=== PATIENT | female | born 1955 | race Caucasian/White ===

== ENCOUNTER → 2016-05-10 | Outpatient (CLI) | payer MEDICARE, OTHER ==
--- NOTE | 2016-05-10 22:00 | WWHP ---
DATE OF SERVICE: 05/10/2016 CHIEF COMPLAINT: Patient is here for her routine gynecologic exam. HPI: This is a 61-year-old G5, P3-0 to 2-3 with an LMP of 1984. She is status post DONAVON for abnormal bleeding and this was benign. She has been experiencing occasional infrequent sharp pains that feel like a shooting pain down through the vagina. She states it lasts for just a few seconds and this happened about 3 to 4 times during the last year. She states it is not really on either side, but just down the middle. She cannot think of any activities that seem to be associated with this pain. PAST MEDICAL HISTORY: Chronic hypertension, asthma, hypothyroidism, seasonal allergies, gastroesophageal reflux disease, and chronic knee pain. Dr. Jiménez is her primary care physician. MEDICATIONS: 1. Norvasc generic 1 daily. 2. Lisinopril 1 daily. 3. Singulair generic daily. 4. Omeprazole 1 b.i.d. 5. Oxybutynin 1 b.i.d. 6. Ambien q.h.s. 7. Levothyroxine 1 daily. 8. Hydrocodone q.i.d. p.r.n. for knee pain. ALLERGIES TO LATEX. PAST SURGICAL HISTORY: DONAVON 1984, lap band surgery 2005, bilateral breast reduction surgery 1994, appendectomy 2003. Colonoscopy in 2003 and 2006, bilateral knee replacement in the past. section x2. Past [employer] history: Unchanged from the 2014 H&P. SOCIAL HISTORY: She quit smoking in 2011. Denies alcohol and drug use. She has been since 1991 and this was her second marriage. She is considered disabled. FAMILY HISTORY: Sister was recently diagnosed with breast cancer, and another sister diagnosed with rectal cancer, grandson leukemia. Father had an aneurysm. She believes her mother had uterine cancer. Brother had oral cancer and another brother had lung cancer. Two grandmothers both had lung cancer and paternal aunt had colon cancer. REVIEW OF SYSTEMS: She has lost about 16 pounds over the last 2 years. She denies respiratory or cardiac problems. GI: Occasional heartburn. PHYSICAL EXAM: Blood pressure 112/70. Height 5 feet 4 inches. Weight 230 pounds. Temperature 97.8, pulse 87. This a well-developed, heavyset white female who is alert and oriented x3 in no acute distress. HEENT is within normal limits. NECK: Supple without mass or thyromegaly. CHEST AND LUNGS: Clear to auscultation. HEART: Regular rate and rhythm. Breasts are without mass or discharge but are mildly tender. She states they have been tender since her breast reduction surgery. Axillary exam is negative for adenopathy. BACK: Negative for CVA tenderness. ABDOMEN: Obese, soft, nontender, without palpable masses. PELVIC EXAM: External genitalia reveals mild atrophy without lesions. Vagina reveals mild atrophy without lesions. There is no unusual discharge. Bimanual exam reveals minimal amount of vaginal cuff and mid pelvic tenderness. There are no palpable adnexal masses or tenderness. Rectovaginal exam is negative for mass or tenderness and is negative for occult blood. EXTREMITIES: Nontender. IMPRESSION: 1. A 61-year-old menopausal female, status post total abdominal hysterectomy for benign reasons. 2. Intermittent brief infrequent sharp mid pelvic and vaginal pains. 3. Mild vaginal cuff and mid pelvic tenderness, which may or may not be associated with her shooting pains. PLAN: 1. Pap smears have been discontinued. 2. Self-breast examination was discussed. 3. Mammogram will be done today. 4. Patient will be scheduled for pelvic ultrasound. 5. She will return in one year and p.r.n.
--- NOTE | 2016-05-11 11:59 | MM ---
Reason for exam: screening (asymptomatic). Last mammogram was performed 2 years and 1 month ago. History: 1994. Physical Findings: A clinical breast exam by your physician is recommended on an annual basis and results should be correlated with mammographic findings. MG 3D Screening Mammo W/Cad Bilateral CC and MLO view(s) were taken. Prior study comparison: March 31, 2014, bilateral MG screening mammo w CAD. Finding: There are typically benign coarse calcifications in both breasts. There is a chronic nodularity in the right breast. No significant changes in finding since March 31, 2014. ASSESSMENT: Benign, BI-RAD 2 RECOMMENDATION: Routine screening mammogram of both breasts in 1 year.
== END | disposition home or self-care (01) ==
LOC: WWCWWP 10:51
PROVIDERS: ATTEND Obstetrics & Gynecology
DX: Z12.31 Encounter for screening mammogram for malignant neoplasm of breast (principal)
CPT/HCPCS: 77063; G0202

== ENCOUNTER → 2016-05-24 | Outpatient (CLI) | payer MEDICARE, OTHER ==
--- NOTE | 2016-05-24 10:09 | US ---
EXAMINATION TYPE: US pelvic limited DATE OF EXAM: 05/24/2016 9:40 AM COMPARISON: 03/31/2014 CLINICAL HISTORY: R10.2 Pelvic Pain,R68.89 Pelvic Tenderness. Hysterectomy, intermittent shooting pel jed pain TECHNIQUE: TA, offered TV but patient declined Date of LMP: unknown Patient shows post hysterectomy change. Urinary bladder unremarkable. 1. Uterus: surgically absent 2. Endometrium: surgically absent 3. Right Ovary: not seen due to bowel and atrophy 4. Left Ovary: not seen due to bowel and atrophy 5. Bilateral Adnexa: wnl 6. Posterior cul-de-sac: wnl IMPRESSION: Postop change.
== END | disposition home or self-care (01) ==
LOC: RADUSWWP 09:26
PROVIDERS: ATTEND Obstetrics & Gynecology
DX: R10.2 Pelvic and perineal pain (principal); R10.819 Abdominal tenderness, unspecified site; Z90.710 Acquired absence of both cervix and uterus
CPT/HCPCS: 76857

== ENCOUNTER → 2016-10-03 | Outpatient (CLI) | payer MEDICARE, OTHER ==
--- NOTE | 2016-10-03 16:12 | FL ---
SINGLE CONTRAST BARIUM SWALLOW: CLINICAL HISTORY: 61-year-old female with a dysphasia, vomiting with solids. Lap band placed 10 years ago. TECHNIQUE: Single contrast exam performed thin barium. Total fluoroscopy time: 48 seconds. Fluoroscopic images: 16. FINDINGS: The patient swallowed oral contrast without difficulty or delay. Esophageal peristalsis and motility are within normal limits. Laparoscopic banding device is noted to be in place and is appropriately positioned in proximal stomach, just below Gastroesophageal junction. There is mild resistance to t he flow of contrast across the lap band with a narrow stream. The gastric pouch appears slightly dila yong. However, there is no obstruction. The lap band remains in good position. IMPRESSION: The lap band is mildly tight without obstruction or prolapse. The gastric pouch is slightly dilated i n appearance.
--- NOTE | 2016-10-03 16:13 | P.HPBAR ---
Bariatric H&P - History & Physicial H&P Date: 10/03/16 History & Physicial: Visit/CC: Patient initial contact: Initial weight: Initial weight in pounds: Height: Initial BMI: Last weight: Current weight: Current weight in pounds: Current BMI: [place] body weight (based on NIH guidelines): Excess body weight loss: The patient is a 61 year-old F who presents for Bariatric Assessment. Patient presents today for lab band follow. She's had chronic issues of dysphagia. She 's not been seen several years. Patient states that she's had several years of dysphagia. She wishes to convert to a sleeve gastrectomy. Review of Systems Constitutional: Reports as per HPI Past Medical History Past Medical History: Asthma, GERD/Reflux, Hypertension, Pneumonia Additional Past Medical History / Comment(s): HX OF ULCERATIVE COLITIS (NO PROBLEM NOW), ENVIRONMENTAL ALLERGIES., STATES SHE THROWS UP DAILY. RECENTLY " FEELS UNSTEADY" AND STARTED ON MECLIZINE. History of Any Multi-Drug Resistant Organisms: None Reported Past Surgical History: Appendectomy, Bariatric Surgery, Breast Surgery, Hysterectomy, Joint Replacement Additional Past Surgical History / Comment(s): PARTIAL HYSTERECTOMY, BREAST REDUCTION, LEFT TOTAL KNEE REPLACEMENT X2, RT KNEE REPLACEMENT X1, LAP BAND. Past Anesthesia/Blood Transfusion Reactions: Family History of Problems w/ Anesthesia, Postoperative Nausea & Vomiting (PONV) Additional Past Anesthesia/Blood Transfusion Reaction / Comm: SISTER-PONV Past Psychological History: Depression Additional Psychological History / Comment(s): HX OF DEPRESSION-STATES NO MEDS NOW. Smoking Status: Former smoker Past Alcohol Use History: None Reported Past Drug Use History: None Reported - Past Family History Brother(s) Family Medical History: Cancer Additional Family Medical History / Comment(s): BROTHER # 1 LUNG CANCER. BROTHER #2 ORAL CANCER Mother Family Medical History: Cancer Additional Family Medical History / Comment(s): UTERINE CANCER. ALSO GRANDSON - LEUKEMIA Surgical - Exam - General well developed, no distress - Eyes PERRL - ENT normal pinna - Abdomen Abdomen: soft, non tender Bariatric Assessment & Plan Plan: The patient had an esophagram performed. She is found have a dilated proximal gastric pouch. Her LAP-BAND was emptied. She had 1 mL removed from her band. Patient was given an information on sleeve gastric. She'll follow-up one month for recheck. Bariatric Checklist Checklist: Plan: Checklist: EGD: 1. Hiatal hernia: 2. H. Pylori: HgbA1c: Vitamin D: Smoking: Former smoker Primary care physician referral: Psychiatry clearance: Cardiology clearance: Sleep study: Diet journal: VTE risk score: VTE risk level: Rehab needs at discharge:
[2016-10-03 16:22] VITALS: BP 123/74; PULSE 80; RESP 16; TEMP 97.9; BMI 40.3
== END | disposition home or self-care (01) ==
LOC: BARWHC3 14:09
PROVIDERS: ATTEND Surgery
DX: Z09 Encounter for follow-up examination after completed treatment for conditions other than malignant neoplasm (principal); K21.9 Gastro-esophageal reflux disease without esophagitis; J45.909 Unspecified asthma, uncomplicated; R13.10 Dysphagia, unspecified; I10 Essential (primary) hypertension; F32.9 Major depressive disorder, single episode, unspecified; Z98.84 Bariatric surgery status; Z87.891 Personal history of nicotine dependence
CPT/HCPCS: 74220; G0463; 99212

== ENCOUNTER → 2016-10-17 | Outpatient (CLI) | payer MEDICARE, OTHER ==
[2016-10-17 13:50] VITALS: BP 120/76; PULSE 70; TEMP 98.2; BMI 40.7
--- NOTE | 2016-10-17 17:18 | P.HPBAR ---
Bariatric H&P - History & Physicial History & Physicial: Visit/CC: presurgical visit Patient initial contact: Initial weight: Initial weight in pounds: Height: 5 ft 4 in Initial BMI: Last weight: Current weight: 107.683 kg Current weight in pounds: 237.40 Current BMI: 40.7 [place] body weight (based on NIH guidelines): 54.431 kg Excess body weight loss: The patient is a 61 year-old F who presents for Bariatric Assessment. The patient presents today for lap band follow. The patient wishes to convert to sleeve gastrectomy. She's had chronic issues with GERD and dysphagia. Her LAP- BAND surgery was performed in 2006. Past Medical History Past Medical History: Asthma, GERD/Reflux, Hypertension, Pneumonia Additional Past Medical History / Comment(s): HX OF ULCERATIVE COLITIS (NO PROBLEM NOW), ENVIRONMENTAL ALLERGIES., STATES SHE THROWS UP DAILY. RECENTLY " FEELS UNSTEADY" AND STARTED ON MECLIZINE. History of Any Multi-Drug Resistant Organisms: None Reported Past Surgical History: Appendectomy, Bariatric Surgery, Breast Surgery, Hysterectomy, Joint Replacement Additional Past Surgical History / Comment(s): PARTIAL HYSTERECTOMY, BREAST REDUCTION, LEFT TOTAL KNEE REPLACEMENT X2, RT KNEE REPLACEMENT X1, LAP BAND. Past Anesthesia/Blood Transfusion Reactions: Family History of Problems w/ Anesthesia, Postoperative Nausea & Vomiting (PONV) Additional Past Anesthesia/Blood Transfusion Reaction / Comm: SISTER-PONV Past Psychological History: Depression Additional Psychological History / Comment(s): HX OF DEPRESSION-STATES NO MEDS NOW. Smoking Status: Former smoker Past Alcohol Use History: None Reported Past Drug Use History: None Reported - Past Family History Brother(s) Family Medical History: Cancer Additional Family Medical History / Comment(s): BROTHER # 1 LUNG CANCER. BROTHER #2 ORAL CANCER Mother Family Medical History: Cancer Additional Family Medical History / Comment(s): UTERINE CANCER. ALSO GRANDSON - LEUKEMIA Surgical - Exam Vital Signs Temp Pulse BP 98.2 F 70 120/76 10/17/16 13:48 10/17/16 13:48 10/17/16 13:48 - General well developed, no distress - Abdomen Abdomen: soft, non tender Bariatric Assessment & Plan Plan: The patient will attend information seminar regarding gastric sleeve. Patient' s GERD and dysphagia is most likely due to her hiatal hernia. The patient will attempt to obtain insurance authorization for conversion sleeve yesterday. Her LAP-BAND is currently empty. We will not adjust her LAP-BAND due to her issues with GERD and dysphagia. Bariatric Checklist Checklist: Plan: Checklist: EGD: 1. Hiatal hernia: 2. H. Pylori: HgbA1c: Vitamin D: Smoking: Former smoker Primary care physician referral: dr gill Psychiatry clearance: Cardiology clearance: Sleep study: Diet journal: VTE risk score: VTE risk level: Rehab needs at discharge:
== END | disposition home or self-care (01) ==
LOC: BARWHC3 13:07
PROVIDERS: ATTEND Surgery
DX: Z01.818 Encounter for other preprocedural examination (principal); J45.909 Unspecified asthma, uncomplicated; K21.9 Gastro-esophageal reflux disease without esophagitis; I10 Essential (primary) hypertension; F32.9 Major depressive disorder, single episode, unspecified; Z98.84 Bariatric surgery status; Z87.891 Personal history of nicotine dependence
CPT/HCPCS: 99211

== ENCOUNTER 2016-11-04 07:39 | Day surgery (SDC) | payer MEDICARE, OTHER ==
[2016-11-02 15:59] VITALS: BMI 42.5
[~2016-11-04 07:39] MED LIST: LACTATED RINGERS 1,000 ML IV SCH
[2016-11-04] MEDS ORDERED: LACTATED RINGERS 1,000 ML IV ONE (08:08)
[2016-11-04] MEDS ORDERED: LIDOCAINE 1% 20 ML VIAL (10MG/ML) FOR IV START INTRADERMA ONE (08:08)
[2016-11-04 08:25] VITALS: RESP 18; TEMP 98.4
[2016-11-04] MEDS ORDERED: PROPOFOL 10 MG/ML 20 ML VIAL IV ONE (09:38)
--- NOTE | 2016-11-04 09:39 | P.GSHP ---
History of Present Illness H&P Date: 11/04/16 Chief Complaint: GERD, morbid obesity 's is a 61-year-old female who presents today for EGD. Patient's had issues with GERD. She history of morbid obesity. Past Medical History Past Medical History: Asthma, GERD/Reflux, Hypertension, Pneumonia Additional Past Medical History / Comment(s): sever heartburn,current tx bronchitis, HX OF ULCERATIVE COLITIS (NO PROBLEM NOW), ENVIRONMENTAL ALLERGIES. , .Hiatal hernia,dizziness,anemia,steroid injection 10-28-16 History of Any Multi-Drug Resistant Organisms: None Reported Past Surgical History: Appendectomy, Bariatric Surgery, Breast Surgery, Hysterectomy, Joint Replacement Additional Past Surgical History / Comment(s): PARTIAL HYSTERECTOMY, BREAST REDUCTION, LEFT TOTAL KNEE REPLACEMENT X2, RT KNEE REPLACEMENT X1, LAP BAND. Past Anesthesia/Blood Transfusion Reactions: Family History of Problems w/ Anesthesia, Postoperative Nausea & Vomiting (PONV) Additional Past Anesthesia/Blood Transfusion Reaction / Comment(s): SISTER- PONV.Children also have PONV. No problems with prior blood transfusion Smoking Status: Former smoker - Past Family History Sister(s) Family Medical History: Cancer Brother(s) Family Medical History: Cancer Additional Family Medical History / Comment(s): BROTHER # 1 LUNG CANCER. BROTHER #2 ORAL CANCER Mother Family Medical History: Cancer Additional Family Medical History / Comment(s): UTERINE CANCER. ALSO GRANDSON - LEUKEMIA Medications and Allergies Home Medications Medication Instructions Recorded Confirmed Type Albuterol Inhaler [Ventolin 1 - 2 puff INHALATION QID PRN 06/13/14 11/04/16 History Inhaler] Albuterol Nebulized [Ventolin 2.5 mg INHALATION Q6H PRN 06/13/14 11/04/16 History Nebulized] Aspirin EC [Ecotrin] 81 mg PO DAILY 06/13/14 11/04/16 History Beclomethasone Dipropionate [Qvar 1 puff INHALATION BID 06/13/14 11/04/16 History 80 mcg/puff] Budesonide [Pulmicort] 0.5 mg INHALATION BID 06/13/14 11/04/16 History HYDROcodone/APAP 7.5-325MG [[place] 1 each PO Q6HR PRN 06/13/14 11/04/16 History 7.5-325] Levothyroxine Sodium [Synthroid] 75 mcg PO QAM 06/13/14 11/04/16 History Lisinopril [Prinivil] 20 mg PO HS 06/13/14 11/04/16 History Magnesium Gluconate [Magonate] 500 mg PO DAILY 06/13/14 11/04/16 History Meclizine [Antivert] 25 mg PO TID 06/13/14 11/04/16 History Montelukast [Singulair] 10 mg PO DAILY 06/13/14 11/04/16 History Omeprazole [PriLOSEC] 40 mg PO BID 06/13/14 11/04/16 History Oxybutynin Chloride [Ditropan] 5 mg PO BID 06/13/14 11/04/16 History Zolpidem [Ambien] 10 mg PO HS 06/13/14 11/04/16 History amLODIPine BESYLATE [Norvasc] 5 mg PO QAM 06/13/14 11/04/16 History ALPRAZolam [Xanax] 0.5 mg PO TID PRN 11/02/16 11/04/16 History Atorvastatin [Lipitor] 20 mg PO DAILY 11/02/16 11/04/16 History Cefuroxime Axetil [Ceftin] 500 mg PO BID 11/02/16 11/04/16 History Cetirizine HCl [Zyrtec] 10 mg PO DAILY 11/02/16 11/04/16 History Ibuprofen 800 mg PO TID PRN 11/02/16 11/04/16 History Allergies Allergy/AdvReac Type Severity Reaction Status Date / Time latex Allergy Unknown Itching, Verified 11/04/16 08:13 Watery eyes, Swelling Surgical - Exam Vital Signs Temp Pulse Resp BP Pulse Ox 98.4 F 70 18 114/80 94 L 11/04/16 08:23 11/04/16 08:23 11/04/16 08:23 11/04/16 08:23 11/04/16 08:23 - General well developed, no distress - Eyes PERRL - ENT normal pinna - Neck no masses - Respiratory normal expansion - Cardiovascular Rhythm: regular - Abdomen Abdomen: soft, non tender Assessment and Plan Plan: GERD RBC We'll perform EGD.
--- NOTE | 2016-11-04 09:51 | P.OP ---
Date of Procedure: 11/04/16 Preoperative Diagnosis: GERD Morbid obesity Postoperative Diagnosis: Mild antral gastritis Procedure(s) Performed: EGD Implants: Anesthesia: MAC Surgeon: Jerry Lynn Pathology: other (Antrum) Condition: stable Disposition: PACU Indications for Procedure: Operative Findings: Description of Procedure: Patient's placed on the endoscopy table in the lateral position. She received IV sedation. The gastroscope some placed oropharynx passed in the esophagus and stomach. Scope was then placed through the pylorus. The first and second portion of duodenum appeared normal. Scope was then brought back the antrum and this appeared mildly inflamed. The scope was then retroflexed and the remainder of the stomach appeared normal. There is no evidence of a hiatal hernia. The GE junction was at 47 is. The distal esophagus appeared minimally inflamed and a biopsies performed. The proximal esophagus appeared normal. Scope was withdrawn for patient.
[2016-11-04 10:00] VITALS: BP 103/67; PULSE 65
== END 2016-11-04 10:30 | disposition home or self-care (01) ==
LOC: ORWHC2ENDO 07:39
PROVIDERS: ATTEND Surgery
DX: K29.50 Unspecified chronic gastritis without bleeding (principal); E66.01 Morbid (severe) obesity due to excess calories; K21.0 Gastro-esophageal reflux disease with esophagitis; I10 Essential (primary) hypertension; E78.5 Hyperlipidemia, unspecified; J45.909 Unspecified asthma, uncomplicated; G47.33 Obstructive sleep apnea (adult) (pediatric); Z91.19 Patient's noncompliance with other medical treatment and regimen; E07.9 Disorder of thyroid, unspecified; Z87.891 Personal history of nicotine dependence; Z91.040 Latex allergy status; Z79.899 Other long term (current) drug therapy; Z79.51 Long term (current) use of inhaled steroids; Z79.82 Long term (current) use of aspirin; Z80.1 Family history of malignant neoplasm of trachea, bronchus and lung; Z80.8 Family history of malignant neoplasm of other organs or systems; Z80.6 Family history of leukemia; Z80.49 Family history of malignant neoplasm of other genital organs
CPT/HCPCS: 88305; 88342; 43239; J2704

== ENCOUNTER → 2016-12-05 | Outpatient (CLI) | payer MEDICARE, OTHER ==
[2016-12-05 14:15] VITALS: BP 137/92; PULSE 67; TEMP 98.4; BMI 41.3
--- NOTE | 2016-12-05 14:41 | P.HPBAR ---
Bariatric H&P - History & Physicial H&P Date: 12/05/16 History & Physicial: Visit/CC: pre op visit Patient initial contact: Initial weight: Initial weight in pounds: Height: 5 ft 4 in Initial BMI: Last weight: 237 Current weight: 109.225 kg Current weight in pounds: 240.80 Current BMI: 41.3 [place] body weight (based on NIH guidelines): 54.431 kg Excess body weight loss: The patient is a 61 year-old F who presents for Bariatric Assessment. Patient presents today for lab band follow. She is wishing to convert to sleeve yesterday. She is actually gained weight since her last visit. She is unable to have her band tightened. Past Medical History Past Medical History: Asthma, GERD/Reflux, Hypertension, Pneumonia Additional Past Medical History / Comment(s): sever heartburn,current tx bronchitis, HX OF ULCERATIVE COLITIS (NO PROBLEM NOW), ENVIRONMENTAL ALLERGIES. , .Hiatal hernia,dizziness,anemia,steroid injection 10-28-16 History of Any Multi-Drug Resistant Organisms: None Reported Past Surgical History: Appendectomy, Bariatric Surgery, Breast Surgery, Hysterectomy, Joint Replacement Additional Past Surgical History / Comment(s): PARTIAL HYSTERECTOMY, BREAST REDUCTION, LEFT TOTAL KNEE REPLACEMENT X2, RT KNEE REPLACEMENT X1, LAP BAND. Past Anesthesia/Blood Transfusion Reactions: Family History of Problems w/ Anesthesia, Postoperative Nausea & Vomiting (PONV) Additional Past Anesthesia/Blood Transfusion Reaction / Comm: SISTER- PONV.Children also have PONV. No problems with prior blood transfusion Past Psychological History: Anxiety, Depression Additional Psychological History / Comment(s): HX OF DEPRESSION-STATES NO MEDS NOW. Smoking Status: Former smoker Past Alcohol Use History: None Reported Additional Past Alcohol Use History / Comment(s): quit smoking 2003,started smoking at age 13,1 ppd Past Drug Use History: None Reported - Past Family History Sister(s) Family Medical History: Cancer Brother(s) Family Medical History: Cancer Additional Family Medical History / Comment(s): BROTHER # 1 LUNG CANCER. BROTHER #2 ORAL CANCER Mother Family Medical History: Cancer Additional Family Medical History / Comment(s): UTERINE CANCER. ALSO GRANDSON - LEUKEMIA Surgical - Exam Vital Signs Temp Pulse BP 98.4 F 67 137/92 12/05/16 14:12 12/05/16 14:12 12/05/16 14:12 - General well developed, no distress - Eyes PERRL - ENT normal pinna - Neck no masses - Respiratory normal expansion - Cardiovascular Rhythm: regular - Abdomen Abdomen: soft, non tender Bariatric Assessment & Plan Plan: History of LAP-BAND procedure. Patient has issues with chronic dysphagia due to GERD. Patient will attempt to obtain insurance authorization for conversion sleeve gastrectomy due to her chronic dysphagia. Bariatric Checklist Checklist: Plan: Checklist: EGD: 1. Hiatal hernia: 2. H. Pylori: HgbA1c: Vitamin D: Smoking: Former smoker Primary care physician referral: dr gill Psychiatry clearance: Cardiology clearance: Sleep study: Diet journal: VTE risk score: VTE risk level: Rehab needs at discharge:
== END | disposition home or self-care (01) ==
LOC: BARWHC3 13:44
PROVIDERS: ATTEND Surgery
DX: Z48.815 Encounter for surgical aftercare following surgery on the digestive system (principal); K21.9 Gastro-esophageal reflux disease without esophagitis; Z87.891 Personal history of nicotine dependence; Z98.84 Bariatric surgery status
CPT/HCPCS: 99211

== ENCOUNTER → 2016-12-12 | Outpatient (CLI) | payer MEDICARE, OTHER ==
[2016-12-12 12:59] VITALS: BMI 41.3
== END | disposition home or self-care (01) ==
LOC: BARWHC3 08:45
PROVIDERS: ATTEND Surgery
DX: E66.01 Morbid (severe) obesity due to excess calories (principal)
CPT/HCPCS: 97804

== ENCOUNTER → 2017-01-13 | Outpatient (CLI) | payer MEDICARE, OTHER ==
[2017-01-13 10:33] LABS: Anisocytosis Slight; Basophils % (A) 1 %; CH 28.2; CHCM 32.2; Eosinophils # (A) 0.1 k/uL (0-0.7); Eosinophils % (A) 1 %; HCT 45.6 % (34.0-46.0); HDW 2.44; HGB 14.2 gm/dL (11.4-16.0); Luc # (Auto) 0.08; Luc % (Auto) 1; Lymphocytes # (A) 1.7 k/uL (1.0-4.8); Lymphocytes % (A) 22 %; MCH 27.4 pg (25.0-35.0); MCV 88.2 fL (80.0-100.0); Mean Platelet Volume 7.4; Monocytes # (A) 0.5 k/uL (0-1.0); Monocytes % (A) 6 %; Neutrophils # (A) 5.3 k/uL (1.3-7.7); Neutrophils % (A) 69 %; RBC 5.17 m/uL (3.80-5.40); RDW 16.5 % (11.5-15.5); WBC 7.6 k/uL (3.8-10.6); WBC (Perox) 7.22
[2017-01-13 10:44] LABS: ALT 29 U/L (9-52); AST 21 U/L (14-36); Alkaline Phosphatase 90 U/L (38-126); Anion Gap 10 mmol/L; Blood Urea Nitrogen 17 mg/dL (7-17); Calcium 9.2 mg/dL (8.4-10.2); Carbon Dioxide 25 mmol/L (22-30); Chloride 103 mmol/L (98-107); Glucose 89 mg/dL (74-99); Non-African American GFR(MDRD) >60 (>60 ml/min/1.73 sqM); Potassium 4.6 mmol/L (3.5-5.1); Sodium 138 mmol/L (137-145); Total Bilirubin 0.4 mg/dL (0.2-1.3); Total Protein 6.8 g/dL (6.3-8.2)
== END | disposition home or self-care (01) ==
LOC: LABPAT 09:43
PROVIDERS: ATTEND Surgery
DX: Z01.812 Encounter for preprocedural laboratory examination (principal)
CPT/HCPCS: 36415; 80053; 85025

== ENCOUNTER → 2017-01-30 | Outpatient (CLI) | payer MEDICARE, OTHER ==
[2017-01-30 13:34] VITALS: BP 104/86; PULSE 100; TEMP 98.2; BMI 38.3
--- NOTE | 2017-01-30 16:10 | P.HPBAR ---
Bariatric H&P - History & Physicial H&P Date: 01/30/17 History & Physicial: Visit/CC: post op visit Patient initial contact: Initial weight: 107.53 kg Initial weight in pounds: 237.06 Height: 5 ft 4 in Initial BMI: 40.6 Last weight: Current weight: 101.423 kg Current weight in pounds: 223.60 Current BMI: 38.3 [place] body weight (based on NIH guidelines): 54.431 kg Excess body weight loss: 11.5% The patient is a 62 year-old F who presents for Bariatric Assessment. The patient presents today for postop sleeve gastrectomy follow-up. She has some complaints of GERD. She's had no significant dysphagia. Past Medical History Past Medical History: Asthma, GERD/Reflux, Hyperlipidemia, Hypertension, Osteoarthritis (OA), Pneumonia, Sleep Apnea/CPAP/BIPAP, Thyroid Disorder Additional Past Medical History / Comment(s): HX OF ULCERATIVE COLITIS .Hiatal hernia,anemia C PAP - NOT USING AT THIS TIME History of Any Multi-Drug Resistant Organisms: None Reported Past Surgical History: Appendectomy, Bariatric Surgery, Breast Surgery, Hysterectomy, Joint Replacement Additional Past Surgical History / Comment(s): PARTIAL HYSTERECTOMY, BREAST REDUCTION, LEFT TOTAL KNEE REPLACEMENT X2, RT KNEE REPLACEMENT X1, LAP BAND. lap band removal revision to sleeve gastrectomy 01-23-17 Past Anesthesia/Blood Transfusion Reactions: Family History of Problems w/ Anesthesia, Postoperative Nausea & Vomiting (PONV) Additional Past Anesthesia/Blood Transfusion Reaction / Comm: SISTER- PONV.Children also have PONV. No problems with prior blood transfusion Past Psychological History: Anxiety, Depression Additional Psychological History / Comment(s): HX OF DEPRESSION-STATES NO MEDS NOW. Smoking Status: Former smoker Past Alcohol Use History: Rare Additional Past Alcohol Use History / Comment(s): quit smoking 2003,started smoking at age 13,1 ppd Past Drug Use History: None Reported - Past Family History Sister(s) Family Medical History: Cancer Additional Family Medical History / Comment(s): BREAST CANCER ,#2SISTER RECTALCANCER Father Family Medical History: Pulmonary Embolus Brother(s) Family Medical History: Cancer Additional Family Medical History / Comment(s): BROTHER ORAL CANCER Mother Family Medical History: Cancer Additional Family Medical History / Comment(s): UTERINE CANCER. ALSO GRANDSON - LEUKEMIA Surgical - Exam Vital Signs Temp Pulse BP 98.2 F 100 104/86 01/30/17 13:29 01/30/17 13:29 01/30/17 13:29 - General well developed, no distress - Eyes PERRL - Abdomen Abdomen: soft, non tender Bariatric Assessment & Plan Plan: The patient is status post sleeve yesterday. She is doing well. The patient will continue omeprazole 40 mg by mouth daily for her GERD. She'll follow-up in 2 weeks. Bariatric Checklist Checklist: Plan: Checklist: EGD: 1. Hiatal hernia: 2. H. Pylori: HgbA1c: Vitamin D: Smoking: Former smoker Primary care physician referral: Fredy Jiménez Psychiatry clearance: Cardiology clearance: Sleep study: Diet journal: VTE risk score: VTE risk level: Rehab needs at discharge:
== END ==
LOC: BARWHC3 13:00
PROVIDERS: ATTEND Surgery
DX: Z48.815 Encounter for surgical aftercare following surgery on the digestive system (principal); Z98.84 Bariatric surgery status; K21.9 Gastro-esophageal reflux disease without esophagitis; Z79.899 Other long term (current) drug therapy; Z87.891 Personal history of nicotine dependence
CPT/HCPCS: 97803; G0463; 99211

== ENCOUNTER → 2017-02-20 | Outpatient (CLI) | payer MEDICARE, OTHER ==
[2017-02-20 14:04] VITALS: BP 129/91; PULSE 79; RESP 16; TEMP 98.9; BMI 37.7
--- NOTE | 2017-02-20 15:27 | P.HPBAR ---
Bariatric H&P - History & Physicial H&P Date: 02/20/17 History & Physicial: Visit/CC: SLEEVE Patient initial contact: Initial weight: 107.53 kg Initial weight in pounds: 237.06 Height: 5 ft 4 in Initial BMI: 40.6 Last weight: 223 Current weight: 99.592 kg Current weight in pounds: 219.00 Current BMI: 37.7 Luther body weight (based on NIH guidelines): 54.431 kg Excess body weight loss: 15.4% The patient is a 62 year-old F who presents for Bariatric Assessment. The patient has some complaints of nausea. She's had some emesis. She is refusing to take protein drinks. Past Medical History Past Medical History: Asthma, GERD/Reflux, Hyperlipidemia, Hypertension, Osteoarthritis (OA), Pneumonia, Sleep Apnea/CPAP/BIPAP, Thyroid Disorder Additional Past Medical History / Comment(s): HX OF ULCERATIVE COLITIS .Hiatal hernia,anemia C PAP - NOT USING AT THIS TIME History of Any Multi-Drug Resistant Organisms: None Reported Past Surgical History: Appendectomy, Bariatric Surgery, Breast Surgery, Hysterectomy, Joint Replacement Additional Past Surgical History / Comment(s): PARTIAL HYSTERECTOMY, BREAST REDUCTION, LEFT TOTAL KNEE REPLACEMENT X2, RT KNEE REPLACEMENT X1, LAP BAND. lap band removal revision to sleeve gastrectomy 01-23-17 Past Anesthesia/Blood Transfusion Reactions: Family History of Problems w/ Anesthesia, Postoperative Nausea & Vomiting (PONV) Additional Past Anesthesia/Blood Transfusion Reaction / Comm: SISTER- PONV.Children also have PONV. No problems with prior blood transfusion Past Psychological History: Anxiety, Depression Additional Psychological History / Comment(s): HX OF DEPRESSION-STATES NO MEDS NOW. Smoking Status: Former smoker Past Alcohol Use History: Rare Additional Past Alcohol Use History / Comment(s): quit smoking 2003,started smoking at age 13,1 ppd Past Drug Use History: None Reported - Past Family History Sister(s) Family Medical History: Cancer Additional Family Medical History / Comment(s): BREAST CANCER ,#2SISTER RECTALCANCER Father Family Medical History: Pulmonary Embolus Brother(s) Family Medical History: Cancer Additional Family Medical History / Comment(s): BROTHER ORAL CANCER Mother Family Medical History: Cancer Additional Family Medical History / Comment(s): UTERINE CANCER. ALSO GRANDSON - LEUKEMIA Surgical - Exam Vital Signs Temp Pulse Resp BP 98.9 F 79 16 129/91 02/20/17 14:01 02/20/17 14:01 02/20/17 14:01 02/20/17 14:01 - General well developed, no distress - Eyes PERRL - Respiratory normal expansion - Abdomen Abdomen: soft, non tender Bariatric Assessment & Plan Plan: The patient status post sleeve yesterday. She's had good weight loss. She spent time with dietitian regarding food choices. She'll follow-up in 2 weeks. Her GERD will be observed. Bariatric Checklist Checklist: Plan: Checklist: EGD: 1. Hiatal hernia: 2. H. Pylori: HgbA1c: Vitamin D: Smoking: Former smoker Primary care physician referral: Fredy Jiménez Psychiatry clearance: Cardiology clearance: Sleep study: Diet journal: VTE risk score: VTE risk level: Rehab needs at discharge:
== END | disposition home or self-care (01) ==
LOC: BARWHC3 13:19
PROVIDERS: ATTEND Surgery
DX: Z48.815 Encounter for surgical aftercare following surgery on the digestive system (principal); E66.01 Morbid (severe) obesity due to excess calories; Z68.37 Body mass index [BMI] 37.0-37.9, adult; Z87.891 Personal history of nicotine dependence; Z98.84 Bariatric surgery status
CPT/HCPCS: 97803; G0463; 99211

== ENCOUNTER → 2018-01-26 | Outpatient (CLI) | payer MEDICARE, OTHER ==
--- NOTE | 2018-01-27 14:27 | MR ---
MR sacroiliac joints HISTORY: Ankylosing spondylitis Multiplanar multisequence and postcontrast images through the sacroiliac joints following [address] IV No comparisons available Sacroiliac joints are intact, there is no significant hypertrophic change, no erosion or ankylosis at evident. No abnormal enhancement following contrast administration. Bone marrow signal is maintained . IMPRESSION: Normal sacroiliac joints.
== END ==
LOC: RADMRIMAIN 07:36
PROVIDERS: ATTEND Internal Medicine Rheumatology
DX: M45.7 Ankylosing spondylitis of lumbosacral region (principal)
CPT/HCPCS: 72197; A9585

== ENCOUNTER → 2018-01-31 | Outpatient (CLI) | payer MEDICARE, OTHER ==
--- NOTE | 2018-01-31 08:55 | CT ---
EXAMINATION TYPE: CT chest w con DATE OF EXAM: 01/31/2018 COMPARISON: CTA chest June 03, 2014 HISTORY: Dyspnea on exertion CT DLP: 463.6 mGycm. Automated Exposure Control for Dose Reduction was Utilized. TECHNIQUE: CT scan of the thorax is performed following with IV Contrast, patient injected with 100 mL of Isovue 300. FINDINGS: LUNGS: The lungs are grossly clear, there is no concerning noncalcified parenchymal mass or nodule id entified. There is persistent calcified 3 mm nodule or granuloma medial right lower lobe axial image 41. Some focal scarring adjacent to tortuous descending thoracic aorta is redemonstrated. There is n o pleural effusion or pneumothorax seen. The tracheobronchial tree is patent. MEDIASTINUM: There are no new greater than 1 cm hilar or mediastinal lymph nodes. No cardiomegaly o r pericardial effusion is seen. Mild coronary artery calcification is present which is noted marker for coronary artery disease. Ascending aorta measures up to 3.7 cm in diameter axial image 26 unchang ed from prior. OTHER: There is intervertebral removal of lap band device. Surgical changes from gastric sleeve proce dure are now present. There is more prominent size hiatal hernia now seen. There is moderate to sever e spurring and disc space narrowing L1-L2 level. There is mild to moderate multilevel anterior and la teral spurring throughout the thoracic spine. Slight dextroconvex scoliosis centered in the midthorac ic spine is redemonstrated. IMPRESSION: Evidence of old granulomatous disease. No suspicious new or acute pulmonary process.
== END | disposition home or self-care (01) ==
LOC: RADCTMAIN 07:54
PROVIDERS: ATTEND Internal Medicine Rheumatology
DX: R06.09 Other forms of dyspnea (principal); M45.7 Ankylosing spondylitis of lumbosacral region
CPT/HCPCS: 71260; Q9967

== ENCOUNTER 2018-07-20 12:54 | Emergency (ER) | payer MEDICARE, OTHER ==
[2018-07-20 12:59] VITALS: TEMP 98.3
[2018-07-20] MEDS ORDERED: SODIUM CHLORIDE 0.9% 500 ML 500 ML IV STA (13:57)
[2018-07-20 14:28] LABS: Basophils % (A) 0 %; Eosinophils # (A) 0.1 k/uL (0-0.7); Eosinophils % (A) 0 %; HCT 43.1 % (34.0-46.0); HGB 13.6 gm/dL (11.4-16.0); Lymphocytes # (A) 0.6 k/uL (1.0-4.8); Lymphocytes % (A) 5 %; MCH 25.6 pg (25.0-35.0); MCHC 31.6 g/dL (31.0-37.0); Mean Platelet Volume 7.7; Monocytes # (A) 0.2 k/uL (0-1.0); Monocytes % (A) 1 %; Neutrophils # (A) 12.1 k/uL (1.3-7.7); Neutrophils % (A) 94 %; Platelet Count 327 k/uL (150-450); RBC 5.33 m/uL (3.80-5.40); RDW 15.1 % (11.5-15.5); WBC 12.9 k/uL (3.8-10.6)
[2018-07-20 14:37] LABS: ALT 34 U/L (9-52); AST 29 U/L (14-36); Albumin 4.4 g/dL (3.5-5.0); Alkaline Phosphatase 110 U/L (38-126); Anion Gap 9 mmol/L; Blood Urea Nitrogen 21 mg/dL (7-17); Calcium 9.7 mg/dL (8.4-10.2); Carbon Dioxide 22 mmol/L (22-30); Chloride 105 mmol/L (98-107); Glucose 212 mg/dL (74-99); Magnesium 1.9 mg/dL (1.6-2.3); Potassium 4.2 mmol/L (3.5-5.1); Sodium 136 mmol/L (137-145); Total Bilirubin 0.6 mg/dL (0.2-1.3)
[2018-07-20 14:40] LABS: INR 0.9 (<1.2); Partial Thromboplastin Time 22.4 sec (22.0-30.0); Prothrombin Time 9.7 sec (9.0-12.0)
--- NOTE | 2018-07-20 14:57 | ED ---
Recheck HPI - General Chief Complaint: Recheck/Abnormal Lab/Rx Stated Complaint: SOB, cough Time Seen by Provider: 07/20/18 13:57 Source: patient, RN notes reviewed Mode of arrival: ambulatory Limitations: no limitations - History of Present Illness Initial Comments: 63-year-old female presents emergency Department from [facility] for concerns of aortic aneurysm. Patient states that she presented for URI symptoms was treated for this given antibiotics still on chest x-ray that showed possibility of aneurysm. Patient states she would not be surprised because she has multiple family members with aortic dissection and aneurysms. Patient states that she's never been screaming for this. She has no pain in her back no abdominal pain no chest pain. - Related Data Home Medications Medication Instructions Recorded Confirmed Aspirin EC [Ecotrin Low Dose] 81 mg PO DAILY 06/13/14 07/20/18 Levothyroxine Sodium [Synthroid] 75 mcg PO QAM 06/13/14 07/20/18 Lisinopril [Prinivil] 20 mg PO HS 06/13/14 07/20/18 Meclizine [Antivert] 25 mg PO TID 06/13/14 07/20/18 Montelukast [Singulair] 10 mg PO HS 06/13/14 07/20/18 Oxybutynin Chloride [Ditropan] 5 mg PO BID 06/13/14 07/20/18 Zolpidem [Ambien] 10 mg PO HS PRN 06/13/14 07/20/18 amLODIPine BESYLATE [Norvasc] 5 mg PO QAM 06/13/14 07/20/18 ALPRAZolam [Xanax] 0.5 mg PO TID PRN 11/02/16 07/20/18 Atorvastatin [Lipitor] 20 mg PO DAILY 11/02/16 07/20/18 Cetirizine HCl [Zyrtec] 10 mg PO DAILY 11/02/16 07/20/18 Albuterol Inhaler [Ventolin Hfa 2 puff INHALATION RT-Q6H PRN 01/11/17 07/20/18 Inhaler] Cefdinir [Omnicef] 300 mg PO BID 07/20/18 07/20/18 Fluticasone Nasal [place] [Flonase 2 spr EA NOSTRIL BID PRN 07/20/18 07/20/18 Nasal [place]] Gabapentin [Neurontin] 400 mg PO TID 07/20/18 07/20/18 Ibuprofen [Motrin] 800 mg PO TID PRN 07/20/18 07/20/18 Omeprazole 20 mg PO DAILY 07/20/18 07/20/18 predniSONE 40 mg PO DAILY 07/20/18 07/20/18 Allergies Allergy/AdvReac Type Severity Reaction Status Date / Time latex Allergy Unknown Itching, Verified 07/20/18 16:12 Watery eyes, Swelling, RASH Review of Systems ROS Statement: Those systems with pertinent positive or pertinent negative responses have been documented in the HPI. ROS Other: All systems not noted in ROS Statement are negative. Past Medical History Past Medical History: Asthma, GERD/Reflux, Hyperlipidemia, Hypertension, Osteoarthritis (OA), Pneumonia, Sleep Apnea/CPAP/BIPAP, Thyroid Disorder Additional Past Medical History / Comment(s): HX OF ULCERATIVE COLITIS .Hiatal hernia,anemia C PAP - NOT USING AT THIS TIME History of Any Multi-Drug Resistant Organisms: None Reported Past Surgical History: Appendectomy, Bariatric Surgery, Breast Surgery, Hysterectomy, Joint Replacement Additional Past Surgical History / Comment(s): PARTIAL HYSTERECTOMY, BREAST REDUCTION, LEFT TOTAL KNEE REPLACEMENT X2, RT KNEE REPLACEMENT X1, LAP BAND. lap band removal revision to sleeve gastrectomy 01-23-17 Past Anesthesia/Blood Transfusion Reactions: Family History of Problems w/ Anest hesia, Postoperative Nausea & Vomiting (PONV) Additional Past Anesthesia/Blood Transfusion Reaction / Comment(s): SISTER- PONV.Children also have PONV. No problems with prior blood transfusion Past Psychological History: Anxiety, Depression Smoking Status: Former smoker Past Alcohol Use History: Rare Past Drug Use History: None Reported - Past Family History Sister(s) Family Medical History: Cancer Additional Family Medical History / Comment(s): BREAST CANCER ,#2SISTER RECTALCANCER Father Family Medical History: Pulmonary Embolus Brother(s) Family Medical History: Cancer Additional Family Medical History / Comment(s): BROTHER ORAL CANCER Mother Family Medical History: Cancer Additional Family Medical History / Comment(s): UTERINE CANCER. ALSO GRANDSON - LEUKEMIA General Exam Limitations: no limitations General appearance: alert, in no apparent distress Head exam: Present: atraumatic, normocephalic, normal inspection Eye exam: Present: normal appearance, PERRL, EOMI. Absent: scleral icterus, conjunctival injection, periorbital swelling ENT exam: Present: normal exam, normal oropharynx, mucous membranes moist, TM's normal bilaterally Neck exam: Present: normal inspection, full ROM. Absent: tenderness, meningismus, lymphadenopathy Respiratory exam: Present: normal lung sounds bilaterally. Absent: respiratory distress, wheezes, rales, rhonchi, stridor Cardiovascular Exam: Present: regular rate, normal rhythm, normal heart sounds. Absent: systolic murmur, diastolic murmur, rubs, gallop, clicks GI/Abdominal exam: Present: soft, normal bowel sounds. Absent: distended, tenderness, guarding, rebound, rigid, pulsatile mass Course Vital Signs 07/20/18 12:57 Temperature 98.3 F Pulse Rate 94 Respiratory 20 Rate Blood Pressure 137/93 O2 Sat by Pulse 97 Oximetry Medical Decision Making - Medical Decision Making 63-year-old female presented for possible aortic aneurysm based on x-ray outpatient. CT was obtained given family history and concerns and x-ray CT does not show any large thoracic or abdominal aortic aneurysm. She does have some small aneurysms noted on the iliac. Patient was updated on his results. She will follow-up with PCP. Return parameters were discussed. - Lab Data Result diagrams: 07/20/18 14:12 07/20/18 14:12 Lab Results 07/20/18 07/20/18 07/20/18 Range/Units 14:12 14:12 14:12 WBC 12.9 H (3.8-10.6) k/uL RBC 5.33 (3.80-5.40) m/uL Hgb 13.6 (11.4-16.0) gm/dL Hct 43.1 (34.0-46.0) % MCV 81.0 (80.0-100.0) fL MCH 25.6 (25.0-35.0) pg MCHC 31.6 (31.0-37.0) g/dL RDW 15.1 (11.5-15.5) % Plt Count 327 (150-450) k/uL Neutrophils % 94 % Lymphocytes % 5 % Monocytes % 1 % Eosinophils % 0 % Basophils % 0 % Neutrophils # 12.1 H (1.3-7.7) k/uL Lymphocytes # 0.6 L (1.0-4.8) k/uL Monocytes # 0.2 (0-1.0) k/uL Eosinophils # 0.1 (0-0.7) k/uL Basophils # 0.0 (0-0.2) k/uL PT 9.7 (9.0-12.0) sec INR 0.9 (<1.2) APTT 22.4 (22.0-30.0) sec Sodium 136 L (137-145) mmol/L Potassium 4.2 (3.5-5.1) mmol/L Chloride 105 (98-107) mmol/L Carbon Dioxide 22 (22-30) mmol/L Anion Gap 9 mmol/L BUN 21 H (7-17) mg/dL Creatinine 0.54 (0.52-1.04) mg/dL Est GFR (CKD-EPI)AfAm >90 (>60 ml/min/1.73 sqM) Est GFR (CKD-EPI)NonAf >90 (>60 ml/min/1.73 sqM) Glucose 212 H (74-99) mg/dL Calcium 9.7 (8.4-10.2) mg/dL Magnesium 1.9 (1.6-2.3) mg/dL Total Bilirubin 0.6 (0.2-1.3) mg/dL AST 29 (14-36) U/L ALT 34 (9-52) U/L Alkaline Phosphatase 110 (38-126) U/L Troponin I (0.000-0.034) ng/mL Total Protein 7.0 (6.3-8.2) g/dL Albumin 4.4 (3.5-5.0) g/dL Urine Color Urine Appearance (Clear) Urine pH (5.0-8.0) Ur Specific [place] (1.001-1.035) Urine Protein (Negative) Urine Glucose (UA) (Negative) Urine Ketones (Negative) Urine Blood (Negative) Urine Nitrite (Negative) Urine Bilirubin (Negative) Urine Urobilinogen (<2.0) mg/dL Ur Leukocyte Esterase (Negative) 07/20/18 07/20/18 Range/Units 14:12 15:49 WBC (3.8-10.6) k/uL RBC (3.80-5.40) m/uL Hgb (11.4-16.0) gm/dL Hct (34.0-46.0) % MCV (80.0-100.0) fL MCH (25.0-35.0) pg MCHC (31.0-37.0) g/dL RDW (11.5-15.5) % Plt Count (150-450) k/uL Neutrophils % % Lymphocytes % % Monocytes % % Eosinophils % % Basophils % % Neutrophils # (1.3-7.7) k/uL Lymphocytes # (1.0-4.8) k/uL Monocytes # (0-1.0) k/uL Eosinophils # (0-0.7) k/uL Basophils # (0-0.2) k/uL PT (9.0-12.0) sec INR (<1.2) APTT (22.0-30.0) sec Sodium (137-145) mmol/L Potassium (3.5-5.1) mmol/L Chloride (98-107) mmol/L Carbon Dioxide (22-30) mmol/L Anion Gap mmol/L BUN (7-17) mg/dL Creatinine (0.52-1.04) mg/dL Est GFR (CKD-EPI)AfAm (>60 ml/min/1.73 sqM) Est GFR (CKD-EPI)NonAf (>60 ml/min/1.73 sqM) Glucose (74-99) mg/dL Calcium (8.4-10.2) mg/dL Magnesium (1.6-2.3) mg/dL Total Bilirubin (0.2-1.3) mg/dL AST (14-36) U/L ALT (9-52) U/L Alkaline Phosphatase (38-126) U/L Troponin I <0.012 (0.000-0.034) ng/mL Total Protein (6.3-8.2) g/dL Albumin (3.5-5.0) g/dL Urine Color Light Yellow Urine Appearance Clear (Clear) Urine pH 5.5 (5.0-8.0) Ur Specific [place] 1.029 (1.001-1.035) Urine Protein Negative (Negative) Urine Glucose (UA) 3+ H (Negative) Urine Ketones Negative (Negative) Urine Blood Negative (Negative) Urine Nitrite Negative (Negative) Urine Bilirubin Negative (Negative) Urine Urobilinogen <2.0 (<2.0) mg/dL Ur Leukocyte Esterase Negative (Negative) - EKG Data EKG Comments: EKG performed at 14:07 normal sinus rhythm with rate of 84 PA 156 QRS 82 QT/QTC 360/415 Disposition Clinical Impression: Bronchitis Disposition: HOME SELF-CARE Condition: Stable Instructions (If sedation given, give patient instructions): Acute Bronchitis (ED) Additional Instructions: Please return to the Emergency Department if symptoms worsen or any other concerns. Is patient prescribed a controlled substance at d/c from ED?: No Referrals: Fredy Jiménez MD [Primary Care Provider] - 1-2 days Time of Disposition: 16:26
--- NOTE | 2018-07-20 15:38 | CT ---
EXAMINATION TYPE: CT angio thor/abd pel aorta DATE OF EXAM: 07/20/2018 COMPARISON: None HISTORY: Abnormal cxr. CT DLP: 1507.5 mGycm CONTRAST: CTA thoracic and abdominal aorta with 3-D reconstruction is performed and without and with IV Contras t, patient injected with 100 mL of Isovue 370. Contrast CTA of the thoracic and abdominal aorta was performed from the lung apex through the base of the pelvis. 3-D reconstruction imaging obtained at a separate workstation. CT Chest: THORACIC AORTA: There is no evidence for aneurysm. No dissection or mediastinal hematoma. Mild ath eromatous changes are seen. LUNGS: The lungs are clear and free of infiltrate or atelectasis. No pulmonary nodule or mass is det ected. No pleural effusion or CT evidence of interstitial lung disease. MEDIASTINUM: The heart is not enlarged. No evidence for mediastinal mass or adenopathy. Postsurgical change of gastric sleeve. Small hiatal hernia. HILAR STRUCTURES: No evidence for mass. No hilar adenopathy is appreciated. OTHER: No significant abnormality. CONTRAST CT ABDOMEN AND PELVIS ABDOMINAL AORTA: No evidence for abdominal aortic aneurysm. No dissection. 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 Ectasia and mural thrombus left common iliac artery measuring up to 1.9 c m. Internal iliacs and the visualized femoral arteries are patent. LIVER/GB- No significant abnormality is seen. PANCREAS- No significant abnormality is seen. SPLEEN- No significant abnormality is seen. ADRENALS- No significant abnormality is seen. KIDNEYS/BLADDER- No significant abnormality is seen. BOWEL- No Significant abnormality GENITAL ORGANS: No gross abnormality seen. LYMPH NODES- No greater than 1cm abdominal or pelvic lymph nodes are appreciated. OSSEOUS STRUCTURES- No significant abnormality is seen. OTHER- No significant abnormality is seen. IMPRESSION- 1. Atheromatous change of the thoracic aorta and abdominal aorta without aneurysm or dissection. Aneu rysm is noted of the right common iliac artery aneurysm borderline aneurysm of the left common iliac artery.
[2018-07-20 16:18] LABS: Appearance,Urine Clear (Clear); Bilirubin,Urine Negative (Negative); Blood,Urine Negative (Negative); Color,Urine Light Yellow; Glucose,Urine (UA) 3+ (Negative); Ketones,Urine Negative (Negative); Leukocyte Esterase,Urine Negative (Negative); Nitrite,Urine Negative (Negative); PH, Urine 5.5 (5.0-8.0); Protein,Urine Negative (Negative); Specific Gravity,Urine 1.029 (1.001-1.035); Urobilinogen,Urine <2.0 mg/dL (<2.0)
[2018-07-20 16:51] VITALS: BP 129/87; PULSE 73; RESP 16
== END 2018-07-20 16:49 | disposition home or self-care (01) ==
LOC: EC 12:54
DX: J45.909 Unspecified asthma, uncomplicated (principal); K21.9 Gastro-esophageal reflux disease without esophagitis; E78.5 Hyperlipidemia, unspecified; I10 Essential (primary) hypertension; M19.90 Unspecified osteoarthritis, unspecified site; E07.9 Disorder of thyroid, unspecified; F32.9 Major depressive disorder, single episode, unspecified; F41.9 Anxiety disorder, unspecified; Z87.891 Personal history of nicotine dependence; Z79.82 Long term (current) use of aspirin; Z79.890 Hormone replacement therapy; Z79.52 Long term (current) use of systemic steroids; Z79.899 Other long term (current) drug therapy; Z91.040 Latex allergy status; Z96.653 Presence of artificial knee joint, bilateral
CPT/HCPCS: 36415; 93005; 80053; 83735; 84484; 85025; 85610; 85730; 81003; 71275; 74174; 99285; Q9967

== ENCOUNTER → 2018-10-30 | Outpatient (CLI) | payer MEDICARE, OTHER ==
[2018-10-30 11:21] VITALS: BP 115/80; PULSE 69; RESP 18; TEMP 98.4; BMI 30.2
--- NOTE | 2018-10-30 12:29 | P.HPOB ---
History of Present Illness H&P Date: 10/30/18 Chief Complaint: The patient is here for her routine gynecologic exam and ma mmogram. This is a 63-year-old with an LMP of 1984. The patient states she has noticed occasional greenish vaginal discharge which she states she has noticed since about 2013. She does not notice it every day. The discharge can appear green and does have a bad odor. She has not been sexually active for more than 2 years. She cannot think of any activity that is associated with the di scharge. She denies pruritus. She is otherwise without gynecologic complaints. She is status post DONAVON for benign reasons. Review of Systems She has lost about 50 pounds following a gastric sleeve procedure. She denies respiratory or cardiac problems. G.I.: she frequently has heartburn. Past Medical History Past Medical History: Asthma, GERD/Reflux, Hyperlipidemia, Hypertension, Osteoarthritis (OA), Pneumonia, Sleep Apnea/CPAP/BIPAP, Thyroid Disorder Additional Past Medical History / Comment(s): Hypothyroidism, seasonal allergies and chronic knee pain. Aortic aneurysm. HX OF ULCERATIVE COLITIS .Hiatal hernia,anemia. PAST S[employer]IOR [employer] HISTORY: She has no history of STDs. She is status post DONAVON for benign bleeding. History of Any Multi-Drug Resistant Organisms: None Reported Past Surgical History: Appendectomy, Bariatric Surgery, Breast Surgery, H ysterectomy, Joint Replacement Additional Past Surgical History / Comment(s): DONAVON, BREAST REDUCTION, LEFT TOTAL KNEE REPLACEMENT X2, RT KNEE REPLACEMENT X1, LAP BAND. lap band removal revision to sleeve gastrectomy 01-23-17. Shoulder surgery. Colonoscopy 2006. Past Anesthesia/Blood Transfusion Reactions: Family History of Problems w/ Anesthesia, Postoperative Nausea & Vomiting (PONV) Additional Past Anesthesia/Blood Transfusion Reaction / Comment(s): SISTER- PONV.Children also have PONV. No problems with prior blood transfusion Past Psychological History: Anxiety, Depression Additional Psychological History / Comment(s): HX OF DEPRESSION-STATES NO MEDS NOW. Smoking Status: Former smoker Past Alcohol Use History: Rare Additional Past Alcohol Use History / Comment(s): quit smoking 2003,started smoking at age 13,1 ppd Past Drug Use History: None Reported Additional History: She has been since 1991 and this is her 2nd marriage. She is considered disabled. - Past Family History Sister(s) Family Medical History: Cancer Additional Family Medical History / Comment(s): BREAST CANCER ,#2SISTER RECTALCANCER Father Family Medical History: Pulmonary Embolus Additional Family Medical History / Comment(s): Aneurysm. Brother(s) Family Medical History: Cancer Additional Family Medical History / Comment(s): One brother had lung cancer. BROTHER ORAL CANCER Mother Family Medical History: Cancer Additional Family Medical History / Comment(s): UTERINE CANCER. ALSO GRANDSON -LEUKEMIA Medications and Allergies Home Medications Medication Instructions Recorded Confirmed Type Levothyroxine Sodium [Synthroid] 75 mcg PO QAM 06/13/14 10/30/18 History Lisinopril [Prinivil] 20 mg PO HS 06/13/14 10/30/18 History Meclizine [Antivert] 25 mg PO TID 06/13/14 10/30/18 History Montelukast [Singulair] 10 mg PO HS 06/13/14 10/30/18 History Zolpidem [Ambien] 10 mg PO HS PRN 06/13/14 10/30/18 History amLODIPine BESYLATE [Norvasc] 5 mg PO QAM 06/13/14 10/30/18 History Atorvastatin [Lipitor] 20 mg PO DAILY 11/02/16 10/30/18 History Cetirizine HCl [Zyrtec] 10 mg PO DAILY 11/02/16 10/30/18 History Albuterol Inhaler [Ventolin Hfa 2 puff INHALATION RT-Q6H PRN 01/11/17 07/20/18 History Inhaler] Fluticasone Nasal [place] [Flonase 2 spr EA NOSTRIL BID PRN 07/20/18 10/30/18 History Nasal [place]] Gabapentin [Neurontin] 400 mg PO TID 07/20/18 10/30/18 History Ibuprofen [Motrin] 800 mg PO TID PRN 07/20/18 10/30/18 History Omeprazole 20 mg PO DAILY 07/20/18 10/30/18 History predniSONE 40 mg PO DAILY 07/20/18 10/30/18 History Sertraline [Zoloft] 50 mg PO HS 10/30/18 10/30/18 History Allergies Allergy/AdvReac Type Severity Reaction Status Date / Time latex Allergy Unknown Itching, Verified 10/30/18 11:22 Watery eyes, Swelling, RASH Exam Vital Signs Temp Pulse Resp BP Pulse Ox 10/30/18 11:16 98.4 F 69 18 115/80 98 Intake and Output 10/29/18 10/30/18 10/30/18 22:59 06:59 14:59 Other: Weight 79.832 kg Height 5'4", weight 176 pounds, BMI 30.2. This is a well-developed well-nourished white female who is alert and oriented times 3 in no acute distress. HEENT: Within normal limits. NECK: Supple without mass or thyromegaly. CHEST AND LUNGS: Clear to auscultation. HEART: Regular rate and rhythm. BREASTS: Are without mass or discharge. AXILLARY EXAM: Negative for adenopathy. BACK: Negative for CVA tenderness. ABDOMEN: Soft, nontender, without palpable masses. There is minimal tenderness at the xyphoid process. She states she probably has not felt the xyphoid process until she has lost weight after her gastric sleeve procedure. PELVIC EXAM: External genitalia appears normal with mild atrophy. Vagina appears normal with mild to moderate atrophy. No discharge was visualized on inspection, but upon using a cotton swab, a dark yellowish discharge was noted on the swab. There was no odor noted. There is no evidence of prolapse. Bi manual examination is negative for mass or tenderness. RECTAL EXAM: Rectovaginal exam is negative for mass or tenderness and is negative for occult blood. There is no evidence of a rectovaginal fistula. EXTREMITIES: Nontender. IMPRESSION: 1. 63-year-old menopausal female status post DONAVON with chronic intermittent vaginal discharge with subjective odor. Minimal yellowish discharge is noted only upon wiping with a cotton swab. No vaginal odor is noted today. 2. Possible that bacterial vaginosis based on her symptoms. PLAN: 1. Pap smear of the vaginal cuff has been obtained because of the chronic vaginal discharge. 2. Self breast awareness was discussed with the patient. 3. Screening mammogram will be done today. 4. GC and Chlamydia testing will be obtained from the Pap smear. 5. Trial of MetroGel vaginal gel. One applicator intravaginally QHS times 5 days. The prescription will be sent to [facility] on [facility]. 6.Osteoporosis prevention was discussed. I have stressed the importance of adequate calcium, vitamin D and regular exercise. Recommended amounts of calcium and vitamin D were also discussed. I have recommended bone density testing since this has not been done. The order slip was given to the patient for this. 7. I have recommended screening colonoscopy said since it has been more than 10 years since her last one. She will discuss this with Dr. Jiménez and see if it can be arranged through his office. 8. She was advised to return in one year for her annual well woman exam. She was also instructed to make an appointment if her vaginal discharge is not improved.
--- NOTE | 2018-11-01 11:44 | MM ---
Reason for exam: screening (asymptomatic). Last mammogram was performed 2 years and 6 months ago. History: Family history of breast cancer in sister. 1994. Physical Findings: A clinical breast exam by your physician is recommended on an annual basis and results should be correlated with mammographic findings. MG 3D Screening Mammo W/Cad Bilateral CC and MLO view(s) were taken. Prior study comparison: May 10, 2016, bilateral MG 3d screening mammo w/cad. March 31, 2014, bilateral MG screening mammo w CAD. Focal asymmetry right middle inner CC view, stable. ASSESSMENT: Benign, BI-RAD 2 RECOMMENDATION: Routine screening mammogram of both breasts in 1 year.
== END | disposition home or self-care (01) ==
LOC: WWCWWP 11:03
PROVIDERS: ATTEND Obstetrics & Gynecology
DX: Z12.31 Encounter for screening mammogram for malignant neoplasm of breast (principal)
CPT/HCPCS: 77063; 77067

== ENCOUNTER → 2018-11-16 | Outpatient (CLI) | payer MEDICARE, OTHER ==
--- NOTE | 2018-11-16 17:43 | BD ---
EXAMINATION TYPE: Axial Bone Density DATE OF EXAM: 11/16/2018 COMPARISON: NONE CLINICAL HISTORY: Height: 63.5 Weight: 176.5 FRAX RISK QUESTIONS: Alcohol (3 or more units per day): no Family History (Parent hip fracture): yes Glucocorticoids (More than 3mos): no (Ex: prednisone, prednisolone, methylprednisolone, dexamethasone, and hydrocortisone). History of Fracture in Adulthood: no Secondary Osteoporosis: 1. Type 1 Diabetes: no 2. Hyperthyroidism: no 3. Menopause before 45: yes 4. Malnutrition: no 5. Chronic liver disease: no Rheumatoid Arthritis: no Current Tobacco Use: no RISK FACTORS HISTORY OF: Family History of Osteoporosis: yes Active: sometimes Diet low in dairy products/other sources of calcium: no Postmenopausal woman: age 37 MEDICATIONS: amlodipine, gabapentin, lisinopril, montelukast, omeprazole, zolpidem Thyroid Medications: levothyroxine How Lon plus years Additional History: EXAM MEASUREMENTS: Bone mineral densitometry was performed using the StepUp System. Bone mineral density as measured about the Lumbar spine is: ----- L1-L4(G/cm2): 1.319 T Score Values are as follows: ----- L2: 0.4 ----- L3: 1.8 ----- L4: 1.9 ----- L1-L4: 1.2 Bone mineral density : baseline Bone mineral density about the R hip (g/cm2): 0.797 Bone mineral density about the L hip (g/cm2): 0.842 T Score values are as follows: -----R Neck: -1.7 -----L Neck: -1.4 -----R Total: -1.1 -----L Total: -0.9 Bone mineral density : baseline IMPRESSION: Osteopenia (T Score between -2.5 and -1). There is slightly increased risk of fracture and the patient may be considered for treatment. Re-Screen 2-5 years. NOTE: T-SCORE=SD OF THE YOUNG ADULT MEAN.
--- NOTE | 2018-11-21 10:06 | P.PN ---
Progress Note - Text Progress Note Date: 11/21/18 OUTPATIENT FOLLOW-UP NOTE TEST(S)/RESULTS: bone density test done on 11/16/2018 showed osteopenia and this was a baseline study. METHOD OF NOTIFICATION: the patient was notified by phone. PATIENT COMMENTS: the patient states she did use the MetroGel Vag and temporarily had an improvement in the vaginal discharge, but after a few days she again developed the chronic vaginal discharge. DIAGNOSIS: osteopenia. History of chronic vaginal discharge, possible rectovaginal fistula DISCUSSION: I have discussed this patient with Dr. Cuevas, the radiologist, and he states to studies that can be done to help to diagnose a rectovaginal fistula would be a barium enema study or a CT scan of the pelvis with rectal contrast. See her recent history and physical for additional details. PLAN: I have stressed the importance of adequate calcium, vitamin D, and regular exercise. A handout on this will be sent to the patient. We will repeat the bone density test in 2 to 3 years. The patient would like to proceed with the barium enema study. She will try to come with a fairly empty rectum and will use a stool softener PRN. The order for the barium enema study will be mailed to the patient.
== END | disposition home or self-care (01) ==
LOC: RADBDWWP 12:15
PROVIDERS: ATTEND Obstetrics & Gynecology
DX: M85.88 Other specified disorders of bone density and structure, other site (principal); Z78.0 Asymptomatic menopausal state
CPT/HCPCS: 77080

== ENCOUNTER → 2019-02-28 | Outpatient (CLI) | payer MEDICARE, OTHER ==
--- NOTE | 2019-02-28 16:08 | NM ---
EXAMINATION TYPE: NM hepatobiliary w EF DATE OF EXAM: 02/28/2019 COMPARISON: NONE HISTORY: Generalized abdominal pain TECHNIQUE: After the intravenous administration of 4.6 mCi Tc 99m Mebrofenin hepatobiliary scintigrap hy is performed. Immediate images post injection. FINDINGS: There is satisfactory initial accumulation of tracer by the liver. The gallbladder is visualized wit hin 90 minutes. The small bowel activity is noted within 38 minutes. At one hour 8 ounces of oral e nsure plus is given to mimic CCK and gallbladder ejection fraction is calculated at 69 %, in the norm al range. Therefore there is no scintigraphic evidence of cystic or common bile duct obstruction to suggest acute cholecystitis or gallbladder dyskinesia. IMPRESSION: The gallbladder is not seen until 90 minutes, which can indicate chronic cholecystitis. G allbladder ejection fraction is within normal limits.
== END | disposition home or self-care (01) ==
LOC: RADNMMAIN 12:53
PROVIDERS: ATTEND Family Medicine
DX: K81.1 Chronic cholecystitis (principal)
CPT/HCPCS: 78226; A9537

== ENCOUNTER 2019-03-14 06:15 | Day surgery (SDC) | payer MEDICARE, OTHER ==
[2019-03-12 15:25] VITALS: BMI 31.6
[~2019-03-14 06:15] MED LIST changes: +DEXAMETHASONE SOD PHOSPHATE 10 MG/ML 1 ML VIAL IV ONE; +HEPARIN SODIUM,PORCINE 5,000 UNIT/ML 1 ML VIAL SQ ONE; +HYDROmorphone 0.5 MG/0.5 ML SYRINGE IVP PRN; -LACTATED RINGERS 1,000 ML IV SCH; +LIDOCAINE 1% 20 ML VIAL (10MG/ML) FOR IV START INTRADERMA PRN; +MIDAZOLAM 2 MG/2 ML VIAL IV PRN; +ONDANSETRON 4 MG/2 ML VIAL IVP ONE; +SCOPOLAMINE 1.5MG/72HR PATCH TRANSDERM ONE
[2019-03-14] MEDS: LACTATED RINGERS 1,000 ML IV SCH ×2 (06:50→09:37)
[2019-03-14] MEDS ORDERED: SUCCINYLCHOLINE CHLORIDE 100 MG/5 ML SYR IV ONE (07:46)
[2019-03-14] MEDS ORDERED: MIDAZOLAM 2 MG/2 ML VIAL ONE (07:46)
[2019-03-14] MEDS ORDERED: NEOSTIGMINE 1 MG/ML 10 ML VIAL ONE (07:46)
[2019-03-14] MEDS ORDERED: fentaNYL (PF) 50 MCG/ML 2 ML AMP ONE (07:46)
[2019-03-14] MEDS ORDERED: ROCURONIUM BROMIDE 10 MG/ML 10 ML VIAL IV ONE (07:46)
[2019-03-14] MEDS ORDERED: PROPOFOL 10 MG/ML 20 ML VIAL IV ONE (07:46)
[2019-03-14] MEDS ORDERED: LIDOCAINE 1% INJ 10MG/ML (20 ML MDV) ONE (07:46)
[2019-03-14] MEDS ORDERED: GLYCOPYRROLATE 0.2 MG/ML 2 ML VIAL ONE (07:46)
[2019-03-14] MEDS ORDERED: BUPIVACAINE (PF) 0.25% 30 ML VIAL SQ ONE ×3 (07:50→08:24)
--- NOTE | 2019-03-14 07:53 | P.GSHP ---
History of Present Illness H&P Date: 03/14/19 Chief Complaint: right upper quadrant pain this a 62-year-old female who presents today for laparoscopic cholecystectomy. Patient has had complaints of right quadrant pain. Her recent HIDA scan shows delayed visualization the gallbladder suggestive chronic cholecystitis. Past Medical History Past Medical History: Asthma, GERD/Reflux, Hyperlipidemia, Hypertension, Osteoarthritis (OA), Pneumonia, Sleep Apnea/CPAP/BIPAP, Thyroid Disorder Additional Past Medical History / Comment(s): seasonal allergies and chronic knee pain. Aortic aneurysm-dr. mota, HX OF ULCERATIVE COLITIS, Hiatal hernia,anemia, History of Any Multi-Drug Resistant Organisms: None Reported Past Surgical History: Appendectomy, Bariatric Surgery, Breast Surgery, Hysterectomy, Joint Replacement Additional Past Surgical History / Comment(s): BREAST REDUCTION, LEFT TOTAL KNEE REPLACEMENT X2, RT KNEE REPLACEMENT X1, LAP BAND. lap band removal revision to sleeve gastrectomy 01-23-17. Shoulder surgery. Colonoscopy 2006. Past Anesthesia/Blood Transfusion Reactions: Family History of Problems w/ Anesthesia, Postoperative Nausea & Vomiting (PONV) Additional Past Anesthesia/Blood Transfusion Reaction / Comment(s): SISTER- PONV.Children also have PONV. No problems with prior blood transfusion Smoking Status: Former smoker - Past Family History Sister(s) Family Medical History: Cancer Additional Family Medical History / Comment(s): BREAST CANCER ,#2SISTER RECTALCANCER Father Family Medical History: Pulmonary Embolus Additional Family Medical History / Comment(s): Aneurysm. Brother(s) Family Medical History: Cancer Additional Family Medical History / Comment(s): One brother had lung cancer. BROTHER ORAL CANCER Mother Family Medical History: Cancer Additional Family Medical History / Comment(s): UTERINE CANCER. ALSO GRANDSON - LEUKEMIA Medications and Allergies Home Medications Medication Instructions Recorded Confirmed Type Levothyroxine Sodium [Synthroid] 75 mcg PO QAM 06/13/14 03/12/19 History Lisinopril [Prinivil] 20 mg PO DAILY 06/13/14 03/14/19 History Meclizine [Antivert] 25 mg PO TID PRN 06/13/14 03/12/19 History Montelukast [Singulair] 10 mg PO HS 06/13/14 03/12/19 History Zolpidem [Ambien] 10 mg PO HS PRN 06/13/14 03/12/19 History amLODIPine BESYLATE [Norvasc] 5 mg PO QAM 06/13/14 03/12/19 History Atorvastatin [Lipitor] 20 mg PO HS 11/02/16 03/12/19 History Albuterol Inhaler [Ventolin Hfa 2 puff INHALATION RT-Q6H PRN 01/11/17 03/12/19 History Inhaler] Fluticasone Nasal [place] [Flonase 2 spr EA NOSTRIL BID PRN 07/20/18 03/14/19 History Nasal [place]] Gabapentin [Neurontin] 400 mg PO TID 07/20/18 03/12/19 History Ibuprofen [Motrin] 800 mg PO TID PRN 07/20/18 03/12/19 History Omeprazole 40 mg PO BID 07/20/18 03/12/19 History Albuterol Nebulized [Ventolin 1.25 mg INHALATION TID 03/12/19 03/12/19 History Nebulized] Sertraline [Zoloft] 100 mg PO HS 03/12/19 03/12/19 History Allergies Allergy/AdvReac Type Severity Reaction Status Date / Time latex Allergy Unknown Itching, Verified 03/14/19 06:35 Watery eyes, Swelling, RASH Surgical - Exam Vital Signs Temp Resp BP Pulse Ox 97.6 F 16 107/63 96 03/14/19 06:42 03/14/19 06:42 03/14/19 06:42 03/14/19 06:42 - General well developed, well nourished, no distress - Eyes PERRL - ENT normal pinna - Neck no masses - Respiratory normal expansion - Cardiovascular Rhythm: regular - Abdomen Abdomen: soft, non tender Assessment and Plan Assessment: right upper quadrant pain Chronic cholecystitis We'll perform laparoscopic cholecystectomy.
[2019-03-14] MEDS ORDERED: LACTATED RINGERS 1,000 ML IV ONE (08:38)
[2019-03-14 08:52] VITALS: TEMP 97.4
--- NOTE | 2019-03-14 08:58 | P.OP ---
Date of Procedure: 03/14/19 Preoperative Diagnosis: cholecystitis Postoperative Diagnosis: cholecystitis Procedure(s) Performed: laparoscopic cholecystectomy Anesthesia: EVAN Surgeon: Jerry Lynn Estimated Blood Loss (ml): 5 Pathology: other (gallbladder) Condition: stable Disposition: PACU Description of Procedure: The patient was placed on the operating table. The patient received a general endotracheal tube anesthesia. The patients abdomen was prepped and draped in the usual sterile fashion. Through an infraumbilical stab incision, the fascia of the anterior abdominal wall was grasped with a pair of Kochers and then the Veress needle was placed in the peritoneal cavity. Position of the Veress needle was confirmed with positive drop test. The abdomen was then insufflated. After adequate insufflation, the 10 mm trocar was placed in the peritoneal cavity. Following this the laparoscope was placed in the peritoneal cavity. The patient was placed in the head-up, right side up position and then a 5 mm trocar was placed in the right lateral and right subcostal position under direct visualization. A 8 mm trocar was placed in the epigastric position. The gallbladder was grasped in the fundus and infundibulum. Traction on the gallbladder was placed in the lateral and the cephalad positions. The triangle of Calot was visualized.. The cystic duct was bluntly dissected until the union of the cystic duct and common bile duct was seen. A critical view of safety was achieved. The cystic duct was then divided and sealed with the Harmonic scissors. A PDS Endoloop was then placed throughout the cystic duct stump. The cystic artery divided and sealed with the Harmonic scissors. The gallbladder was then removed from the liver bed using Harmonic scissors. The gallbladder was then extracted through the epigastric port site. Operative field was checked for any bleeding spots and Harmonic scissors was used to coagulate the liver bed. The abdomen was irrigated. The trocars were removed. The skin was closed using interrupted 3-0 Vicryl suture. Dermabond dressing were applied. The patient tolerated the procedure well.
[2019-03-14] MEDS ORDERED: ONDANSETRON 4 MG/2 ML VIAL IVP ONE (09:08)
[2019-03-14] MEDS ORDERED: HYDROmorphone 0.5 MG/0.5 ML SYRINGE IVP ONE (09:10)
[2019-03-14] MEDS ORDERED: HYDROmorphone 1 MG/ML 1 ML SYRINGE IVP ONE ×2 (09:30→09:31)
[2019-03-14] MEDS ORDERED: FAMOTIDINE 20 MG/2 ML VIAL IVP ONE (09:49)
[2019-03-14 11:38] VITALS: RESP 20
[2019-03-14 11:39] VITALS: BP 93/61; PULSE 60
== END 2019-03-14 11:35 | disposition home or self-care (01) ==
LOC: OR 06:15
PROVIDERS: ATTEND Surgery
DX: K80.10 Calculus of gallbladder with chronic cholecystitis without obstruction (principal); I10 Essential (primary) hypertension; E78.5 Hyperlipidemia, unspecified; J45.909 Unspecified asthma, uncomplicated; K21.9 Gastro-esophageal reflux disease without esophagitis; G47.33 Obstructive sleep apnea (adult) (pediatric); M19.90 Unspecified osteoarthritis, unspecified site; E07.9 Disorder of thyroid, unspecified; D64.9 Anemia, unspecified; I72.3 Aneurysm of iliac artery; R07.9 Chest pain, unspecified; Z79.899 Other long term (current) drug therapy; Z91.040 Latex allergy status; Z87.891 Personal history of nicotine dependence; Z90.710 Acquired absence of both cervix and uterus; Z79.890 Hormone replacement therapy; Z98.84 Bariatric surgery status; Z90.49 Acquired absence of other specified parts of digestive tract; Z96.653 Presence of artificial knee joint, bilateral; Z87.01 Personal history of pneumonia (recurrent); Z80.3 Family history of malignant neoplasm of breast; Z80.0 Family history of malignant neoplasm of digestive organs; Z82.49 Family history of ischemic heart disease and other diseases of the circulatory system; Z80.1 Family history of malignant neoplasm of trachea, bronchus and lung; Z80.8 Family history of malignant neoplasm of other organs or systems; Z80.49 Family history of malignant neoplasm of other genital organs; Z80.6 Family history of leukemia; Z87.19 Personal history of other diseases of the digestive system
CPT/HCPCS: 93005; 88304; 47562; J2250; J1644; J1100; J2710; J0690; J2405; J2001; J3010; J1170 ×2; J0330; J2704

== ENCOUNTER 2019-04-02 09:45 | Day surgery (SDC) | payer MEDICARE, OTHER ==
[2019-03-28 09:12] VITALS: BMI 30.2
[~2019-04-02 09:45] MED LIST changes: -DEXAMETHASONE SOD PHOSPHATE 10 MG/ML 1 ML VIAL IV ONE; -HEPARIN SODIUM,PORCINE 5,000 UNIT/ML 1 ML VIAL SQ ONE; -HYDROmorphone 0.5 MG/0.5 ML SYRINGE IVP PRN; +LACTATED RINGERS 1,000 ML IV SCH; -MIDAZOLAM 2 MG/2 ML VIAL IV PRN; -ONDANSETRON 4 MG/2 ML VIAL IVP ONE; -SCOPOLAMINE 1.5MG/72HR PATCH TRANSDERM ONE
[2019-04-02] MEDS ORDERED: LACTATED RINGERS 1,000 ML IV ONE (10:00)
[2019-04-02 10:05] VITALS: RESP 16; TEMP 97.8
[2019-04-02] MEDS ORDERED: PROPOFOL 10 MG/ML 20 ML VIAL IV ONE (10:09)
--- NOTE | 2019-04-02 10:12 | P.GSHP ---
History of Present Illness H&P Date: 04/02/19 Chief Complaint: Screening colonoscopy This a 64-year-old female who presents today for screening colonoscopy. Patient denies any significant GI complaints. Past Medical History Past Medical History: Asthma, GERD/Reflux, Hyperlipidemia, Hypertension, Osteoarthritis (OA), Pneumonia, Sleep Apnea/CPAP/BIPAP, Thyroid Disorder Additional Past Medical History / Comment(s): Hypothyroidism, seasonal allergies., pain in neck, shoulders and knees., uses cane prn., lisa horses., Aortic aneurysm, HX OF ULCERATIVE COLITIS, Hiatal hernia ,anemia, states constipation & diarrhea., cholecystectomy 03/14/19-states incisions healed. History of Any Multi-Drug Resistant Organisms: None Reported Past Surgical History: Appendectomy, Bariatric Surgery, Breast Surgery, Cholecystectomy, Hysterectomy, Joint Replacement Additional Past Surgical History / Comment(s): BREAST REDUCTION, LEFT TOTAL KNEE REPLACEMENT X2, RT KNEE REPLACEMENT X1, LAP BAND. lap band removal revision to sleeve gastrectomy 01-23-17. Shoulder surgery. 5 " Hugo left knee., Colonoscopy, cholecystectomy 03/14/19. Past Anesthesia/Blood Transfusion Reactions: Family History of Problems w/ Anesthesia, Postoperative Nausea & Vomiting (PONV) Additional Past Anesthesia/Blood Transfusion Reaction / Comment(s): SISTER AND CHILDREN PONV Past Psychological History: Anxiety, Depression Additional Psychological History / Comment(s): . Smoking Status: Former smoker Past Alcohol Use History: None Reported Additional Past Alcohol Use History / Comment(s): quit smoking 2003,started smoking at age 13,1 ppd Past Drug Use History: None Reported - Past Family History Sister(s) Family Medical History: Cancer Additional Family Medical History / Comment(s): BREAST CANCER ,#2SISTER RECTALCANCER Father Family Medical History: Pulmonary Embolus Additional Family Medical History / Comment(s): Aneurysm. Brother(s) Family Medical History: Cancer Additional Family Medical History / Comment(s): One brother had lung cancer. BROTHER ORAL CANCER Mother Family Medical History: Cancer Additional Family Medical History / Comment(s): UTERINE CANCER. ALSO GRANDSON - LEUKEMIA Medications and Allergies Home Medications Medication Instructions Recorded Confirmed Type Levothyroxine Sodium [Synthroid] 75 mcg PO QAM 06/13/14 04/02/19 History Lisinopril [Prinivil] 20 mg PO DAILY 06/13/14 04/02/19 History Meclizine [Antivert] 25 mg PO TID PRN 06/13/14 04/02/19 History Montelukast [Singulair] 10 mg PO HS 06/13/14 04/02/19 History Zolpidem [Ambien] 10 mg PO HS PRN 06/13/14 04/02/19 History amLODIPine BESYLATE [Norvasc] 5 mg PO QAM 06/13/14 04/02/19 History Atorvastatin [Lipitor] 20 mg PO HS 11/02/16 04/02/19 History Albuterol Inhaler [Ventolin Hfa 2 puff INHALATION RT-Q6H PRN 01/11/17 04/02/19 History Inhaler] Fluticasone Nasal [place] [Flonase 2 spr EA NOSTRIL BID PRN 07/20/18 04/02/19 History Nasal [place]] Gabapentin [Neurontin] 400 mg PO TID 07/20/18 04/02/19 History Omeprazole 40 mg PO BID 07/20/18 04/02/19 History Albuterol Nebulized [Ventolin 1.25 mg INHALATION TID 03/12/19 04/02/19 History Nebulized] Sertraline [Zoloft] 100 mg PO HS 03/12/19 04/02/19 History HYDROcodone/APAP 5-325MG [[place] 1 tab PO Q6HR PRN #10 tab 03/14/19 04/02/19 Rx 5-325] Allergies Allergy/AdvReac Type Severity Reaction Status Date / Time latex Allergy Unknown Itching, Verified 04/02/19 10:00 Watery eyes, Swelling, RASH Surgical - Exam Vital Signs Temp Pulse Resp BP Pulse Ox 97.8 F 72 16 120/70 97 04/02/19 10:00 04/02/19 10:00 04/02/19 10:00 04/02/19 10:04/02/19 10:00 - General well developed, well nourished, no distress - Eyes PERRL - ENT normal pinna - Neck no masses - Respiratory normal expansion - Cardiovascular Rhythm: regular - Abdomen Abdomen: soft, non tender Assessment and Plan Assessment: We'll perform screening colonoscopy
--- NOTE | 2019-04-02 10:22 | P.OP ---
Date of Procedure: 04/02/19 Preoperative Diagnosis: Screening colonoscopy Postoperative Diagnosis: Normal colonoscopy Procedure(s) Performed: Colonoscopy Anesthesia: MAC Surgeon: Jerry Lynn Pathology: none sent Condition: stable Disposition: PACU Description of Procedure: PROCEDURE: The patient was placed on the endoscopy table in the lateral position. Digital rectal examination was performed which revealed no abnormalities. . Flexible colonoscope was then placed in the patient's anus and passed throughout the entire colon. The ileocecal valve was visualized. The cecum, ascending, transverse, descending and sigmoid colon were normal. The rectum was normal as well. There were no masses, polyps or diverticula noted in the entire colon. SUMMARY OF FINDINGS: Normal colonoscopy.
[2019-04-02 10:51] VITALS: BP 122/82; PULSE 68
== END 2019-04-02 11:53 | disposition home or self-care (01) ==
LOC: ORWHC2ENDO 09:45
PROVIDERS: ATTEND Surgery
DX: Z12.11 Encounter for screening for malignant neoplasm of colon (principal); J45.909 Unspecified asthma, uncomplicated; K21.9 Gastro-esophageal reflux disease without esophagitis; E78.5 Hyperlipidemia, unspecified; I10 Essential (primary) hypertension; M19.90 Unspecified osteoarthritis, unspecified site; Z87.01 Personal history of pneumonia (recurrent); G47.30 Sleep apnea, unspecified; Z99.89 Dependence on other enabling machines and devices; E03.9 Hypothyroidism, unspecified; J30.2 Other seasonal allergic rhinitis; I71.9 Aortic aneurysm of unspecified site, without rupture; K51.90 Ulcerative colitis, unspecified, without complications; K44.9 Diaphragmatic hernia without obstruction or gangrene; D64.9 Anemia, unspecified; Z90.49 Acquired absence of other specified parts of digestive tract; Z90.710 Acquired absence of both cervix and uterus; Z96.653 Presence of artificial knee joint, bilateral; Z98.84 Bariatric surgery status; F41.9 Anxiety disorder, unspecified; F32.9 Major depressive disorder, single episode, unspecified; Z87.891 Personal history of nicotine dependence; Z80.3 Family history of malignant neoplasm of breast; Z80.0 Family history of malignant neoplasm of digestive organs; Z80.1 Family history of malignant neoplasm of trachea, bronchus and lung; Z80.8 Family history of malignant neoplasm of other organs or systems; Z83.6 Family history of other diseases of the respiratory system; Z80.49 Family history of malignant neoplasm of other genital organs; Z80.6 Family history of leukemia; Z79.890 Hormone replacement therapy; Z79.899 Other long term (current) drug therapy; Z79.891 Long term (current) use of opiate analgesic; Z91.040 Latex allergy status
CPT/HCPCS: J2704; G0121

== ENCOUNTER 2019-10-11 09:48 | Observation (INO) | payer MEDICARE, OTHER ==
[2019-10-11] MEDS ORDERED: SODIUM CHLORIDE 0.9% 500 ML 500 ML IV STA (10:15)
[2019-10-11 10:33] LABS: Basophils % (A) 1 %; Eosinophils # (A) 0.3 k/uL (0-0.7); Eosinophils % (A) 4 %; HCT 39.1 % (34.0-46.0); HGB 12.1 gm/dL (11.4-16.0); Hypochromasia Slight; Lymphocytes # (A) 1.3 k/uL (1.0-4.8); Lymphocytes % (A) 21 %; MCH 23.5 pg (25.0-35.0); MCHC 30.9 g/dL (31.0-37.0); MCV 76.2 fL (80.0-100.0); Mean Platelet Volume 6.5; Microcytosis Slight; Monocytes # (A) 0.4 k/uL (0-1.0); Monocytes % (A) 6 %; Neutrophils % (A) 66 %; Platelet Count 282 k/uL (150-450); RBC 5.13 m/uL (3.80-5.40); RDW 15.2 % (11.5-15.5)
[2019-10-11 10:39] LABS: INR 0.9 (<1.2); Partial Thromboplastin Time 23.9 sec (22.0-30.0); Prothrombin Time 9.7 sec (9.0-12.0)
[2019-10-11 10:51] LABS: ALT 14 U/L (4-34); AST 20 U/L (14-36); African American GFR (CKD) >90 (>60 ml/min/1.73 sqM); Albumin 3.4 g/dL (3.5-5.0); Alkaline Phosphatase 109 U/L (38-126); Anion Gap 3 mmol/L; Blood Urea Nitrogen 13 mg/dL (7-17); Calcium 8.4 mg/dL (8.4-10.2); Carbon Dioxide 26 mmol/L (22-30); Chloride 106 mmol/L (98-107); Glucose 119 mg/dL (74-99); Magnesium 2.1 mg/dL (1.6-2.3); Non-African American GFR(CKD) >90 (>60 ml/min/1.73 sqM); Sodium 135 mmol/L (137-145); Total Bilirubin 0.3 mg/dL (0.2-1.3); Total Protein 5.7 g/dL (6.3-8.2)
--- NOTE | 2019-10-11 10:54 | XR ---
EXAMINATION TYPE: XR chest 2V DATE OF EXAM: 10/11/2019 COMPARISON: 05/20/2013 INDICATION: Weakness TECHNIQUE: Single frontal view of the chest is obtained. FINDINGS: The heart size is slightly prominent. The pulmonary vasculature is normal. The lungs are clear. IMPRESSION: 1. Mild cardiomegaly, stable
--- NOTE | 2019-10-11 11:18 | ED ---
Weakness HPI - General Chief complaint: Weakness Stated complaint: weakness/dizziness Time Seen by Provider: 10/11/19 10:04 Source: patient Mode of arrival: ambulatory Limitations: no limitations - History of Present Illness Initial comments: Patient is a 64-year-old female, History of asthma, hypertension, thyroid disorder, presenting to the emergency Department with complaints of weakness that started early this morning. Patient states she woke up at approximate 5 AM, went to make a couple coffee but felt too weak so she went back to bed. Patient states she woke up again at [address] and also dizzy when she would sit up. Patient states she feels like she can't even barely lift up her arms. She states she normally takes sleeping pills at night but states she did not take them last night. She states she was really tired and just went to bed without taking any of her nightly medications. She states she does have a mild cough that she started a few days ago. She states a few members of her family has also started with a cough in the past couple days. No fevers. Patient admits to being an occasional smoker, denies drinking, denies any other drug use. She denies taking any other new medications. She denies having pain anywhere. She denies chest pain, shortness of breath, abdominal pain, nausea, vomiting. She states she still feels lightheaded when she opened her eyes. She denies having a headache. She has no further complaints at this time. Upon arrival to the ER, her vital signs are stable. - Related Data Home Medications Medication Instructions Recorded Confirmed Levothyroxine Sodium [Synthroid] 75 mcg PO QAM 06/13/14 10/11/19 Lisinopril [Prinivil] 20 mg PO DAILY 06/13/14 10/11/19 Meclizine [Antivert] 25 mg PO TID PRN 06/13/14 10/11/19 Montelukast [Singulair] 10 mg PO DAILY 06/13/14 10/11/19 Zolpidem [Ambien] 10 mg PO HS PRN 06/13/14 10/11/19 amLODIPine BESYLATE [Norvasc] 5 mg PO QAM 06/13/14 10/11/19 Atorvastatin [Lipitor] 20 mg PO DAILY 11/02/16 10/11/19 Gabapentin [Neurontin] 400 mg PO TID 07/20/18 10/11/19 Omeprazole [PriLOSEC] 40 mg PO DAILY 10/11/19 10/11/19 Sertraline [Zoloft] 100 mg PO DAILY 10/11/19 10/11/19 Allergies Allergy/AdvReac Type Severity Reaction Status Date / Time latex Allergy Unknown Itching, Verified 10/11/19 09:52 Watery eyes, Swelling, RASH Review of Systems ROS Statement: Those systems with pertinent positive or pertinent negative responses have been documented in the HPI. ROS Other: All systems not noted in ROS Statement are negative. Past Medical History Past Medical History: Asthma, GERD/Reflux, Hyperlipidemia, Hypertension, Ost eoarthritis (OA), Pneumonia, Sleep Apnea/CPAP/BIPAP, Thyroid Disorder Additional Past Medical History / Comment(s): Hypothyroidism, seasonal allergies., pain in neck, shoulders and knees., uses cane prn., lias horses., Aortic aneurysm, HX OF ULCERATIVE COLITIS, Hiatal hernia ,anemia, states constipation & diarrhea., cholecystectomy 03/14/19-states incisions healed. History of Any Multi-Drug Resistant Organisms: None Reported Past Surgical History: Appendectomy, Bariatric Surgery, Breast Surgery, Cholecystectomy, Hysterectomy, Joint Replacement Additional Past Surgical History / Comment(s): BREAST REDUCTION, LEFT TOTAL KNEE REPLACEMENT X2, RT KNEE REPLACEMENT X1, LAP BAND. lap band removal revision to sleeve gastrectomy 01-23-17. Shoulder surgery. 5 " Hugo left knee., Colonoscopy, cholecystectomy 03/14/19. Past Anesthesia/Blood Transfusion Reactions: Family History of Problems w/ Anesthesia, Postoperative Nausea & Vomiting (PONV) Additional Past Anesthesia/Blood Transfusion Reaction / Comment(s): SISTER AND CHILDREN PONV Past Psychological History: Anxiety, Depression Smoking Status: Current some day smoker Past Alcohol Use History: None Reported Past Drug Use History: None Reported - Past Family History Sister(s) Family Medical History: Cancer Additional Family Medical History / Comment(s): BREAST CANCER ,#2SISTER RECTALCANCER Father Family Medical History: Pulmonary Embolus Additional Family Medical History / Comment(s): Aneurysm. Brother(s) Family Medical History: Cancer Additional Family Medical History / Comment(s): One brother had lung cancer. BROTHER ORAL CANCER Mother Family Medical History: Cancer Additional Family Medical History / Comment(s): UTERINE CANCER. ALSO GRANDSON - LEUKEMIA General Exam - General Exam Comments Initial Comments: GENERAL: Patient appears fatigued, well-nourished and in no acute distress. HEAD: Atraumatic, normocephalic. EYES: Pupils equal round and reactive to light, extraocular movements intact, sclera anicteric, conjunctiva are normal. ENT: TMs normal, nares patent, oropharynx clear without exudates. Moist mucous membranes. NECK: Normal range of motion, supple without lymphadenopathy or JVD. LUNGS: Generalized scattered wheezes, no rales or rhonchi. HEART: Regular rate and rhythm without murmurs, rubs or gallops. ABDOMEN: Soft, nontender, normoactive bowel sounds. No guarding, no rebound. No masses appreciated. : Deferred EXTREMITIES: Normal range of motion, no pitting or edema. No clubbing or cyanosis. Strength is 5 out of 5 upper and lower extremities bilaterally. Sensation is equal in bilateral both upper and lower extremities. PSYCH: Normal mood, normal affect. SKIN: Warm, Dry, normal turgor, no rashes or lesions noted. Limitations: no limitations Neurological exam: Present: alert, oriented X3, CN II-XII intact Expanded Speech: Present: fluid speech Cranial nerves: EOM's Intact: Normal, Tongue Deviation: Normal, Nystagmus: Normal, Facial Sensation: Normal Cerebellar function: Finger to Nose: Normal, Heel to Meraz: Normal Upper motor neuron: Pronator Drift: Normal Sensory exam: Upper Extremity Light Touch: Normal, Upper Extremity Temperature: Normal, Lower Extremity Light Touch: Normal, Lower Extremity Temperature: Normal Motor strength exam: RUE: 5, LUE: 5, RLE: 5, LLE: 5 Course Vital Signs 10/11/19 10/11/19 10/11/19 09:49 12:20 14:48 Temperature 98.6 F 98.6 F Pulse Rate 80 56 L 77 Respiratory 20 20 20 Rate Blood Pressure 116/83 129/74 140/89 O2 Sat by Pulse 96 97 Oximetry EKG Findings - EKG Comments: EKG Findings:: Normal sinus rhythm, no signs of acute ischemia. Ventricular rate 64, NH interval 138, QTc 412. Similar to previous on 03/14/2019. Medical Decision Making - Medical Decision Making Patient is a 64-year-old female presenting for weakness since this morning. She denies any falls or trauma. She states she is just not able to stand up or get around on her own which is highly unusual for her. Her only complain in addition to the weakness is a cough 2 days. She denies any chest pain or shortness of breath. Her vital signs are stable. Her exam is unremarkable, no neuro deficits. Her lab work reveals a normal white count, normal hemoglobin. Lactic acid is normal at 1.2, troponin is normal. TSH is elevated at 64.6. Urine shows no evidence of infection, urine tox screen is negative. Chest x-ray reveals no acute abnormality. Patient was given some fluids. Upon reexamin ation, patient was able to sit on the side of the bed, but seemed very lethargic. She does hold a conversation and answers questions appropriately. I did attempt to have patient stand on her own but felt like she might fall. I discussed case in detail with Dr. Patel. We did order a head CT which shows no acute process. Patient will be admitted for weakness, patient accepted by Dr. Jiménez. I consulted neurology. Patient is agreeable with this plan of care. - Lab Data Result diagrams: 10/11/19 10:16 10/11/19 10:16 Lab Results 10/11/19 10/11/19 10/11/19 Range/Units 10:16 10:16 10:16 WBC 6.0 (3.8-10.6) k/uL RBC 5.13 (3.80-5.40) m/uL Hgb 12.1 (11.4-16.0) gm/dL Hct 39.1 (34.0-46.0) % MCV 76.2 L (80.0-100.0) fL MCH 23.5 L (25.0-35.0) pg MCHC 30.9 L (31.0-37.0) g/dL RDW 15.2 (11.5-15.5) % Plt Count 282 (150-450) k/uL Neutrophils % 66 % Lymphocytes % 21 % Monocytes % 6 % Eosinophils % 4 % Basophils % 1 % Neutrophils # 4.0 (1.3-7.7) k/uL Lymphocytes # 1.3 (1.0-4.8) k/uL Monocytes # 0.4 (0-1.0) k/uL Eosinophils # 0.3 (0-0.7) k/uL Basophils # 0.0 (0-0.2) k/uL Hypochromasia Slight Microcytosis Slight PT 9.7 (9.0-12.0) sec INR 0.9 (<1.2) APTT 23.9 (22.0-30.0) sec Sodium 135 L (137-145) mmol/L Potassium 4.0 (3.5-5.1) mmol/L Chloride 106 (98-107) mmol/L Carbon Dioxide 26 (22-30) mmol/L Anion Gap 3 mmol/L BUN 13 (7-17) mg/dL Creatinine 0.56 (0.52-1.04) mg/dL Est GFR (CKD-EPI)AfAm >90 (>60 ml/min/1.73 sqM) Est GFR (CKD-EPI)NonAf >90 (>60 ml/min/1.73 sqM) Glucose 119 H (74-99) mg/dL Plasma Lactic Acid Gustavo (0.7-2.0) mmol/L Calcium 8.4 (8.4-10.2) mg/dL Magnesium 2.1 (1.6-2.3) mg/dL Total Bilirubin 0.3 (0.2-1.3) mg/dL AST 20 (14-36) U/L ALT 14 (4-34) U/L Alkaline Phosphatase 109 (38-126) U/L Troponin I (0.000-0.034) ng/mL NT-Pro-B Natriuret Pep pg/mL Total Protein 5.7 L (6.3-8.2) g/dL Albumin 3.4 L (3.5-5.0) g/dL TSH 64.600 H (0.465-4.680) mIU/L Free T4 (0.78-2.19) ng/dL Urine Color Urine Appearance (Clear) Urine pH (5.0-8.0) Ur Specific [place] (1.001-1.035) Urine Protein (Negative) Urine Glucose (UA) (Negative) Urine Ketones (Negative) Urine Blood (Negative) Urine Nitrite (Negative) Urine Bilirubin (Negative) Urine Urobilinogen (<2.0) mg/dL Ur Leukocyte Esterase (Negative) Urine WBC (0-5) /hpf Urine Mucus (None) /hpf Urine Opiates Screen (NotDetected) Ur Oxycodone Screen (NotDetected) Urine Methadone Screen (NotDetected) Ur Propoxyphene Screen (NotDetected) Ur Barbiturates Screen (NotDetected) U Tricyclic Antidepress (NotDetected) Ur Phencyclidine Scrn (NotDetected) Ur Amphetamines Screen (NotDetected) U Methamphetamines Scrn (NotDetected) U Benzodiazepines Scrn (NotDetected) Urine Cocaine Screen (NotDetected) U Marijuana (THC) Screen (NotDetected) 10/11/19 10/11/19 10/11/19 Range/Units 10:16 10:16 10:16 WBC (3.8-10.6) k/uL RBC (3.80-5.40) m/uL Hgb (11.4-16.0) gm/dL Hct (34.0-46.0) % MCV (80.0-100.0) fL MCH (25.0-35.0) pg MCHC (31.0-37.0) g/dL RDW (11.5-15.5) % Plt Count (150-450) k/uL Neutrophils % % Lymphocytes % % Monocytes % % Eosinophils % % Basophils % % Neutrophils # (1.3-7.7) k/uL Lymphocytes # (1.0-4.8) k/uL Monocytes # (0-1.0) k/uL Eosinophils # (0-0.7) k/uL Basophils # (0-0.2) k/uL Hypochromasia Microcytosis PT (9.0-12.0) sec INR (<1.2) APTT (22.0-30.0) sec Sodium (137-145) mmol/L Potassium (3.5-5.1) mmol/L Chloride (98-107) mmol/L Carbon Dioxide (22-30) mmol/L Anion Gap mmol/L BUN (7-17) mg/dL Creatinine (0.52-1.04) mg/dL Est GFR (CKD-EPI)AfAm (>60 ml/min/1.73 sqM) Est GFR (CKD-EPI)NonAf (>60 ml/min/1.73 sqM) Glucose (74-99) mg/dL Plasma Lactic Acid Gustavo 1.2 (0.7-2.0) mmol/L Calcium (8.4-10.2) mg/dL Magnesium (1.6-2.3) mg/dL Total Bilirubin (0.2-1.3) mg/dL AST (14-36) U/L ALT (4-34) U/L Alkaline Phosphatase (38-126) U/L Troponin I <0.012 (0.000-0.034) ng/mL NT-Pro-B Natriuret Pep 161 pg/mL Total Protein (6.3-8.2) g/dL Albumin (3.5-5.0) g/dL TSH (0.465-4.680) mIU/L Free T4 (0.78-2.19) ng/dL Urine Color Urine Appearance (Clear) Urine pH (5.0-8.0) Ur Specific [place] (1.001-1.035) Urine Protein (Negative) Urine Glucose (UA) (Negative) Urine Ketones (Negative) Urine Blood (Negative) Urine Nitrite (Negative) Urine Bilirubin (Negative) Urine Urobilinogen (<2.0) mg/dL Ur Leukocyte Esterase (Negative) Urine WBC (0-5) /hpf Urine Mucus (None) /hpf Urine Opiates Screen (NotDetected) Ur Oxycodone Screen (NotDetected) Urine Methadone Screen (NotDetected) Ur Propoxyphene Screen (NotDetected) Ur Barbiturates Screen (NotDetected) U Tricyclic Antidepress (NotDetected) Ur Phencyclidine Scrn (NotDetected) Ur Amphetamines Screen (NotDetected) U Methamphetamines Scrn (NotDetected) U Benzodiazepines Scrn (NotDetected) Urine Cocaine Screen (NotDetected) U Marijuana (THC) Screen (NotDetected) 10/11/19 10/11/19 10/11/19 Range/Units 10:16 11:16 11:16 WBC (3.8-10.6) k/uL RBC (3.80-5.40) m/uL Hgb (11.4-16.0) gm/dL Hct (34.0-46.0) % MCV (80.0-100.0) fL MCH (25.0-35.0) pg MCHC (31.0-37.0) g/dL RDW (11.5-15.5) % Plt Count (150-450) k/uL Neutrophils % % Lymphocytes % % Monocytes % % Eosinophils % % Basophils % % Neutrophils # (1.3-7.7) k/uL Lymphocytes # (1.0-4.8) k/uL Monocytes # (0-1.0) k/uL Eosinophils # (0-0.7) k/uL Basophils # (0-0.2) k/uL Hypochromasia Microcytosis PT (9.0-12.0) sec INR (<1.2) APTT (22.0-30.0) sec Sodium (137-145) mmol/L Potassium (3.5-5.1) mmol/L Chloride (98-107) mmol/L Carbon Dioxide (22-30) mmol/L Anion Gap mmol/L BUN (7-17) mg/dL Creatinine (0.52-1.04) mg/dL Est GFR (CKD-EPI)AfAm (>60 ml/min/1.73 sqM) Est GFR (CKD-EPI)NonAf (>60 ml/min/1.73 sqM) Glucose (74-99) mg/dL Plasma Lactic Acid Gustavo (0.7-2.0) mmol/L Calcium (8.4-10.2) mg/dL Magnesium (1.6-2.3) mg/dL Total Bilirubin (0.2-1.3) mg/dL AST (14-36) U/L ALT (4-34) U/L Alkaline Phosphatase (38-126) U/L Troponin I (0.000-0.034) ng/mL NT-Pro-B Natriuret Pep pg/mL Total Protein (6.3-8.2) g/dL Albumin (3.5-5.0) g/dL TSH (0.465-4.680) mIU/L Free T4 0.45 L (0.78-2.19) ng/dL Urine Color Light Yellow Urine Appearance Clear (Clear) Urine pH 7.0 (5.0-8.0) Ur Specific [place] 1.011 (1.001-1.035) Urine Protein Negative (Negative) Urine Glucose (UA) Negative (Negative) Urine Ketones Negative (Negative) Urine Blood Negative (Negative) Urine Nitrite Negative (Negative) Urine Bilirubin Negative (Negative) Urine Urobilinogen <2.0 (<2.0) mg/dL Ur Leukocyte Esterase Moderate H (Negative) Urine WBC 2 (0-5) /hpf Urine Mucus Rare H (None) /hpf Urine Opiates Screen Not Detected (NotDetected) Ur Oxycodone Screen Not Detected (NotDetected) Urine Methadone Screen Not Detected (NotDetected) Ur Propoxyphene Screen Not Detected (NotDetected) Ur Barbiturates Screen Not Detected (NotDetected) U Tricyclic Antidepress Not Detected (NotDetected) Ur Phencyclidine Scrn Not Detected (NotDetected) Ur Amphetamines Screen Not Detected (NotDetected) U Methamphetamines Scrn Not Detected (NotDetected) U Benzodiazepines Scrn Not Detected (NotDetected) Urine Cocaine Screen Not Detected (NotDetected) U Marijuana (THC) Screen Not Detected (NotDetected) Disposition Clinical Impression: Weakness Disposition: ADMITTED IP TO THIS [facility] Condition: Stable Decision Date: 10/11/19 Decision Time: 14:23
[2019-10-11 11:25] LABS: Appearance,Urine Clear (Clear); Bilirubin,Urine Negative (Negative); Blood,Urine Negative (Negative); Color,Urine Light Yellow; Glucose,Urine (UA) Negative (Negative); Ketones,Urine Negative (Negative); Leukocyte Esterase,Urine Moderate (Negative); Mucus,Urine Rare /hpf; Nitrite,Urine Negative (Negative); Protein,Urine Negative (Negative); Specific Gravity,Urine 1.011 (1.001-1.035); Urobilinogen,Urine <2.0 mg/dL (<2.0); WBC,Urine 2 /hpf (0-5)
[2019-10-11 11:52] LABS: Amphetamine Screen,Urine Not Detected (NotDetected); Barbiturate Screen,Urine Not Detected (NotDetected); Benzodiazepines Screen,Urine Not Detected (NotDetected); Cocaine Screen,Urine Not Detected (NotDetected); Methadone Screen, Urine Not Detected (NotDetected); Opiate Screen,Urine Not Detected (NotDetected); Oxycodone Screen, Urine Not Detected (NotDetected); Phencyclidine Screen,Urine Not Detected (NotDetected); Tricyclic Antidepressant,Urine Not Detected (NotDetected); Urn Cannabinoid Scrn Not Detected (NotDetected)
--- NOTE | 2019-10-11 13:57 | CT ---
EXAMINATION TYPE: CT brain wo con DATE OF EXAM: 10/11/2019 COMPARISON: None HISTORY: Patient poor historian CT DLP: 1099.[address] of the brain was performed. The ventricles, basal cisterns and sulci overlying the cerebral convexities demonstrate mild enlargem ent. There is no evidence for intracranial hemorrhage or sulcal effacement. There is decreased attenuation about the periventricular white matter and deep white matter of both c erebral hemispheres, compatible with chronic small vessel ischemia. Differential diagnosis does inclu de demyelination. No mass effects are seen.No midline shift. Osseous calvarium is intact. If symptoms persist consider MRI. IMPRESSION: 1. Age related atrophic and chronic small vessel ischemic change without acute intracranial process s een at this time.
[2019-10-11] MEDS ORDERED: ONDANSETRON 4 MG/2 ML VIAL IVP PRN (14:20)
[2019-10-11] MEDS ORDERED: NALOXONE 0.4 MG/ML 1 ML VIAL IV PRN (14:20)
[2019-10-11] MEDS ORDERED: ACETAMINOPHEN TAB 325 MG TAB PO PRN (14:20)
[2019-10-11 15:15] LABS: T4, Free (Free Thyroxine) 0.45 ng/dL (0.78-2.19)
[2019-10-11] MEDS ORDERED: MECLIZINE 25 MG TAB PO PRN (15:48)
[2019-10-11] MEDS: lisinopriL 20 MG TAB PO SCH (16:42)
[2019-10-11] MEDS: amLODIPine 5 MG TAB PO SCH (16:42)
[2019-10-11] MEDS: SERTRALINE 100 MG TAB PO SCH (16:42)
[2019-10-11] MEDS: GABAPENTIN 400 MG CAP PO SCH ×2 (16:42→20:47)
[2019-10-11] MEDS ORDERED: ASPIRIN 81 MG PO STA (18:18)
--- NOTE | 2019-10-11 18:45 | P.CNNES ---
History of Present Illness Consult date: 10/11/19 Requesting physician: Johnie Patel Reason for Consult: weakness History of Present Illness: This is a 64-year-old female with medical history of hypertention, hypothyroidism and asthma who presented to the emergency department on 10/11/2019 with the complaint of weakness that started early this morning. She woke up at 5:00 in the morning to make coffee and she felt light headed upon waking-up then went back to bed. Then she woke up again at 9:00 in the morning and same thing and she also felt dizzy, like room is spining and especially with sitting up, generalized weakness and felt she was leaning toward one side but does not know which side. She feel her whole body is weak. She denies visual change, Difficulty getting words out, no slurring of speech. denies of any numbness or any tingling. Denies of any ringing in the ears or any hearing loss. Denies of any focal weakness. Denies falls. She states that she has been coughing for the last 2 days she feels congested. Denies fevers. Denies any history of TIA or strokes. sensation states that she is supposed to be on baby aspirin according to her physician but she is not on it. She occasionally smokes. In the ED she had a CT of the brain which was reported as age related atrophic and chronic small vessel ischemic changes without acute intracranial process seen at this time. EKG was reported as normal sinus rhythm. Ventricle rate of 64. Left axis deviation. Low voltage QRS. Review of Systems Review of system: The 12 point system was reviewed and apparent positive and negative per HPI. Past Medical History Past Medical History: Asthma, GERD/Reflux, Hyperlipidemia, Hypertension, Osteoarthritis (OA), Pneumonia, Sleep Apnea/CPAP/BIPAP, Thyroid Disorder Additional Past Medical History / Comment(s): Hypothyroidism, seasonal allergies., pain in neck, shoulders and knees., uses cane prn., lisa horses., Aortic aneurysm, HX OF ULCERATIVE COLITIS, Hiatal hernia ,anemia, states constipation & diarrhea., cholecystectomy 03/14/19-states incisions healed. History of Any Multi-Drug Resistant Organisms: None Reported Past Surgical History: Appendectomy, Bariatric Surgery, Breast Surgery, Cholecystectomy, Hysterectomy, Joint Replacement Additional Past Surgical History / Comment(s): BREAST REDUCTION, LEFT TOTAL KNEE REPLACEMENT X2, RT KNEE REPLACEMENT X1, LAP BAND. lap band removal revision to sleeve gastrectomy 01-23-17. Shoulder surgery. 5 " Hugo left knee., Colonoscopy, cholecystectomy 03/14/19. Past Anesthesia/Blood Transfusion Reactions: Family History of Problems w/ Anesthesia, Postoperative Nausea & Vomiting (PONV) Additional Past Anesthesia/Blood Transfusion Reaction / Comment(s): SISTER AND CHILDREN PONV Past Psychological History: Anxiety, Depression Smoking Status: Current some day smoker Past Alcohol Use History: None Reported Past Drug Use History: None Reported - Past Family History Sister(s) Family Medical History: Cancer Additional Family Medical History / Comment(s): BREAST CANCER ,#2SISTER RECTALCANCER Father Family Medical History: Pulmonary Embolus Additional Family Medical History / Comment(s): Aneurysm. Brother(s) Family Medical History: Cancer Additional Family Medical History / Comment(s): One brother had lung cancer. BROTHER ORAL CANCER Mother Family Medical History: Cancer Additional Family Medical History / Comment(s): UTERINE CANCER. ALSO GRANDSON - LEUKEMIA Medications and Allergies Home Medications Medication Instructions Recorded Confirmed Type Levothyroxine Sodium [Synthroid] 75 mcg PO QAM 06/13/14 10/11/19 History Lisinopril [Prinivil] 20 mg PO DAILY 06/13/14 10/11/19 History Meclizine [Antivert] 25 mg PO TID PRN 06/13/14 10/11/19 History Montelukast [Singulair] 10 mg PO DAILY 06/13/14 10/11/19 History Zolpidem [Ambien] 10 mg PO HS PRN 06/13/14 10/11/19 History amLODIPine BESYLATE [Norvasc] 5 mg PO QAM 06/13/14 10/11/19 History Atorvastatin [Lipitor] 20 mg PO DAILY 11/02/16 10/11/19 History Gabapentin [Neurontin] 400 mg PO TID 07/20/18 10/11/19 History Omeprazole [PriLOSEC] 40 mg PO DAILY 10/11/19 10/11/19 History Sertraline [Zoloft] 100 mg PO DAILY 10/11/19 10/11/19 History Allergies Allergy/AdvReac Type Severity Reaction Status Date / Time latex Allergy Unknown Itching, Verified 10/11/19 09:52 Watery eyes, Swelling, RASH Physical Examination - Vital Signs Vital Signs: Vital Signs Temp Pulse Resp BP Pulse Ox 10/11/19 14:48 98.6 F 77 20 140/89 97 10/11/19 12:20 56 L 20 129/74 10/11/19 09:49 98.6 F 80 20 116/83 96 Intake and Output 10/11/19 10/11/19 10/11/19 06:59 14:59 22:59 Other: Weight 83.915 kg 83.915 kg GENERAL: The patient is lying in bed and is not in acute distress. CHEST: The heart rate is regular rate rhythm. No murmurs to auscultation. No carotid bruit bilaterally. LUNG: Clear to auscultation bilaterally no wheezing noted throughout. Not labored breathing. ABDOMEN/GI: Bowel sounds present in all 4 quadrants. No tenderness to palpation throughout. NEUROLOGICAL: Higher mental function: The patient is awake, alert, oriented to self, place and time. Patient is following commands. No aphasia and no neglect. Cranial nerves: The pupils are round, equal and reactive to light and accommodation. Visual walters are full to confrontation throughout. Extraocular movement is intact no nystagmus is noted. Facial sensation is normal to touch throughout. The facial strength is normal throughout. Hearing is normal bilaterally to hand rub. Tongue is midline and moved [id number] without any difficulty. No dysarthria is noted. Shoulder shrug is normal bilaterally. Motor: Gait: She was generalied weak upon getting up and was cough and slightly moved to left but just briefly. The strength is 5 over 5 throughout. Normal tone and bulk. Cerebellum: Normal finger to nose heel to chin bilaterally. Sensation: Sensation is normal to touch throughout. Reflexes (right/left):2+ throughout. Plantars are downgoing bilaterally. NIH stroke scale: 0 Results PT 9.7, INR 0.9, PTT of 23.9 TSH of 64, T4 0.45, free T3 2.7 Urine drug screen was negative - Laboratory Findings CBC and BMP: 10/11/19 10:16 10/11/19 10:16 Abnormal Lab Findings: Abnormal Labs 10/11/19 10/11/19 10/11/19 10:16 10:16 10:16 MCV 76.2 L MCH 23.5 L MCHC 30.9 L Sodium 135 L Glucose 119 H Total Protein 5.7 L Albumin 3.4 L TSH 64.600 H Free T4 0.45 L Free T3 pg/mL 2.7 L Ur Leukocyte Esterase Urine Mucus 10/11/19 11:16 MCV MCH MCHC Sodium Glucose Total Protein Albumin TSH Free T4 Free T3 pg/mL Ur Leukocyte Esterase Moderate H Urine Mucus Rare H Assessment and Plan Assessment: This is a 64-year-old right-handed female with medical history of hypertention, hypothyroidism and asthma who presented to the emergency department on 10/11/2019 with the complaint of weakness that started early this morning. She woke up at 5:00 in the morning to make coffee and she felt light headed upon waking-up then went back to bed. Then she woke up again at 9:00 in the morning and same thing and she also felt dizzy, like room is spining and especially with sitting up, generalized weakness and felt she was leaning toward one side but does not know which side. She has a cough for the past 2 days. Her generalized weakness and dizziness are unlikely stroke Cough and feels congested HTN Hypothyroidism Plan: Ordered MRI Brain w/o and if negative no further stroke work-up and its not a stroke or TIA. -Placed on ASA 324 loading then 81mg daily and continue Lipitor 20mg daily. -Possibly viral infection causing her to have cough and dizziness (labyrinthitis). The plan was discussed with the patient as well as Dr. Jiménez. Thank you for the consult. Chadwick Perez MD Neuro-hospitalist Time with Patient: Greater than 30
[2019-10-12] MEDS ORDERED: LEVOTHYROXINE 75 MCG TAB PO SCH (06:30)
[2019-10-12] MEDS ORDERED: PANTOPRAZOLE 40 MG TABLET PO SCH (07:30)
[2019-10-12] MEDS: GABAPENTIN 400 MG CAP PO SCH (08:34)
[2019-10-12] MEDS: SERTRALINE 100 MG TAB PO SCH (08:34)
[2019-10-12] MEDS: lisinopriL 20 MG TAB PO SCH (08:34)
[2019-10-12] MEDS: amLODIPine 5 MG TAB PO SCH (08:35)
[2019-10-12 08:46] VITALS: BP 139/92; RESP 18; TEMP 96.9
[2019-10-12] MEDS ORDERED: MONTELUKAST 10 MG TAB PO SCH (09:00)
[2019-10-12] MEDS ORDERED: ATORVASTATIN 20 MG TAB PO SCH (09:00)
[2019-10-12] MEDS ORDERED: ASPIRIN 81 MG PO SCH (09:00)
--- NOTE | 2019-10-12 10:05 | MR ---
EXAMINATION TYPE: MR brain wo con DATE OF EXAM: 10/12/2019 9:51 AM. COMPARISON: NONE. HISTORY: Stroke. Technique: Multiplanar, multiecho imaging of the brain was obtained without intravenous contrast. FINDINGS: There is receptor artifact on this study. Structures are unremarkable. There is a normal craniocervical junction. Echoplanar diffusion imaging fails to demonstrate any restricted diffusion. There are normal vascular flow voids. The orbits are unremarkable. There is no evidence of a CP angle mass lesion. There are scattered high signal FLAIR lesions throughout the FLAIR dataset in the deep white matter t racts of the cerebral hemispheres bilaterally and in the subcortical white matter. These are more pro minent on the right than the left these measure approximately 20 in number. The largest is in the rig ht frontal lobe and measures 6.3 mm. There is no mass effect, midline shift or intracranial blood. IMPRESSION: 1. NO ACUTE INTRACRANIAL ABNORMALITY. 2. NONSPECIFIC FLAIR LESION IN THE DEEP WHITE MATTER TRACTS OF BOTH CEREBRAL HEMISPHERES, GREATER ON THE RIGHT THAN THE LEFT. A DIFFERENTIAL DIAGNOSIS WOULD INCLUDE DEMYELINATION, HYPERTENSION, MIGRAINE HEADACHES, SMALL VESSEL DISEASE AND LYME'S DISEASE.
[2019-10-12] MEDS ORDERED: IPRATROPIUM-ALBUTEROL 3 ML NEB INHALATION PRN (10:20)
[2019-10-12 11:20] VITALS: PULSE 87
[2019-10-12] MEDS ORDERED: LEVOTHYROXINE 50 MCG TAB PO ONE (13:45)
--- NOTE | 2019-10-12 15:32 | P.HPIM ---
History of Present Illness This is a 64-year-old female came in with comments of generalized weakness excessive drowsiness and excessive sleeping. Patient is also pending a vertiginous symptoms. Patient is found to have a hypothyroidism patient does have history of hepatitis and uses on for many micrograms of levothyroxine. Patient has elevated TSH and low T4 and T3 contributing to her symptoms. Patient doesn't have any weakness patient was extensive evaluated for her the vertigo by neurology. Patient doesn't have any congestion or ringing in the ea rs. 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 Because of this reason I'm referring her to urology as outpatient for further workup of these lesions starting with the lumbar puncture as an outpatient. Patient's the levothyroxine dose will be increased will make sure patient is strong enough to go home and patient will be discharged today Review of Systems REVIEW OF SYSTEMS: CONSTITUTIONAL: As mentioned in HPI HEENT: No recent visual problems or hearing problems. Denied any sore throat. CARDIOVASCULAR: No chest pain, orthopnea, PND, no palpitations, no syncope. PULMONARY: No shortness of breath, no cough, no hemoptysis. GASTROINTESTINAL: No diarrhea, no nausea, no vomiting, no abdominal pain. NEUROLOGICAL: No headaches, no weakness, no numbness. HEMATOLOGICAL: Denies any bleeding or petechiae. GENITOURINARY: Denies any burning micturition, frequency, or urgency. MUSCULOSKELETAL/RHEUMATOLOGICAL: Denies any joint pain, swelling, or any muscle pain. ENDOCRINE: Denies any polyuria or polydipsia. The rest of the 14-point review of systems is negative. Past Medical History Past Medical History: Asthma, GERD/Reflux, Hyperlipidemia, Hypertension, Osteoarthritis (OA), Pneumonia, Sleep Apnea/CPAP/BIPAP, Thyroid Disorder Additional Past Medical History / Comment(s): Hypothyroidism, seasonal allergies., pain in neck, shoulders and knees., uses cane prn., lisa horses., Aortic aneurysm, HX OF ULCERATIVE COLITIS, Hiatal hernia ,anemia, states constipation & diarrhea., cholecystectomy 03/14/19-states incisions healed. History of Any Multi-Drug Resistant Organisms: None Reported Past Surgical History: Appendectomy, Bariatric Surgery, Breast Surgery, Cholecystectomy, Hysterectomy, Joint Replacement Additional Past Surgical History / Comment(s): BREAST REDUCTION, LEFT TOTAL KNEE REPLACEMENT X2, RT KNEE REPLACEMENT X1, LAP BAND. lap band removal revision to sleeve gastrectomy 01-23-17. Shoulder surgery. 5 " Hugo left knee., Colonoscopy, cholecystectomy 03/14/19. Past Anesthesia/Blood Transfusion Reactions: Family History of Problems w/ A nesthesia, Postoperative Nausea & Vomiting (PONV) Additional Past Anesthesia/Blood Transfusion Reaction / Comment(s): SISTER AND CHILDREN PONV Past Psychological History: Anxiety, Depression Smoking Status: Current some day smoker Past Alcohol Use History: None Reported Past Drug Use History: None Reported - Past Family History Sister(s) Family Medical History: Cancer Additional Family Medical History / Comment(s): BREAST CANCER ,#2SISTER RECTALCANCER Father Family Medical History: Pulmonary Embolus Additional Family Medical History / Comment(s): Aneurysm. Brother(s) Family Medical History: Cancer Additional Family Medical History / Comment(s): One brother had lung cancer. BROTHER ORAL CANCER Mother Family Medical History: Cancer Additional Family Medical History / Comment(s): UTERINE CANCER. ALSO GRANDSON -LEUKEMIA Medications and Allergies Home Medications Medication Instructions Recorded Confirmed Type Lisinopril [Prinivil] 20 mg PO DAILY 06/13/14 10/11/19 History Montelukast [Singulair] 10 mg PO DAILY 06/13/14 10/11/19 History Zolpidem [Ambien] 10 mg PO HS PRN 06/13/14 10/11/19 History amLODIPine BESYLATE [Norvasc] 5 mg PO QAM 06/13/14 10/11/19 History Atorvastatin [Lipitor] 20 mg PO DAILY 11/02/16 10/11/19 History Gabapentin [Neurontin] 400 mg PO TID 07/20/18 10/11/19 History Omeprazole [PriLOSEC] 40 mg PO DAILY 10/11/19 10/11/19 History Sertraline [Zoloft] 100 mg PO DAILY 10/11/19 10/11/19 History Budesonide-Formot 160-4.5 Mcg 2 puff INHALATION BID #1 inhaler 10/12/19 Rx [Symbicort 160-4.5 Mcg Inhaler] Fluticasone/Salmeterol [Advair 1 inhalation PO BID #1 inhaler 10/12/19 Rx 250-50 Diskus] Levothyroxine Sodium [Euthyrox] 112 mcg PO DAILY #30 tablet 10/12/19 Rx Meclizine [Antivert] 25 mg PO TID PRN #30 tab 10/12/19 Rx Allergies Allergy/AdvReac Type Severity Reaction Status Date / Time latex Allergy Unknown Itching, Verified 10/11/19 09:52 Watery eyes, Swelling, RASH Physical Exam Vitals: Vital Signs Temp Pulse Pulse Resp BP Pulse Ox 10/12/19 11:19 87 10/12/19 11:10 83 10/12/19 08:00 96.9 F L 59 L 18 139/92 91 L 10/12/19 03:30 98.0 F 66 19 112/66 93 L 10/12/19 00:00 67 15 10/11/19 23:55 98.6 F 67 15 108/65 10/11/19 20:00 98.2 F 62 18 112/74 93 L 10/11/19 19:50 62 18 Intake and Output 10/12/19 10/12/19 10/12/19 06:59 14:59 22:59 Intake Total 600 Balance 600 Intake: Oral 600 Other: # Voids 1 2 PHYSICAL EXAMINATION: GENERAL: The patient is alert and oriented x3, not in any acute distress. Well developed, well nourished. She appears to be bit tired HEENT: Pupils are round and equally reacting to light. EOMI. No scleral icterus. No conjunctival pallor. Normocephalic, atraumatic. No pharyngeal erythema. No thyromegaly. CARDIOVASCULAR: S1 and S2 present. No murmurs, rubs, or gallops. PULMONARY: Chest is clear to auscultation, no wheezing or crackles. ABDOMEN: Soft, nontender, nondistended, normoactive bowel sounds. No palpable organomegaly. MUSCULOSKELETAL: No joint swelling or deformity. EXTREMITIES: No cyanosis, clubbing, or pedal edema. NEUROLOGICAL: Gross neurological examination did not reveal any focal deficits. SKIN: No rashes. Results CBC & Chem 7: 10/11/19 10:16 10/11/19 10:16 Labs: Abnormal Lab Results - Last 24 Hours (Table) 07/17/20 Range/Units 10:16 Free T3 pg/mL 2.7 L (2.8-5.3) pg/ml Thrombosis Risk Factor Assmnt - Choose All That Apply Any of the Below Risk Factors Present?: No Other Risk Factors: Yes Each Risk Factor Represents 2 Points: Age 61-74 years Other congenital or acquired thrombophilia - If yes, enter type in comment: No Thrombosis Risk Factor Assessment Total Risk Factor Score: 2 Thrombosis Risk Factor Assessment Level: Low Risk Assessment and Plan Plan: -Fatigue generalized tiredness weakness and excessive sleeping: Secondary to hypothyroidism increasing the dose of levothyroxine -Vertigo probably peripheral vertigo benign push vertigo patient was discharged on meclizine patient's symptoms did improve since yesterday -Nonspecific white matter lesions on the MRI these are incidental findings further workup as an outpatient and patient will be referred to neurology. Gastroesophageal reflux disease -Hyperlipidemia -Hypertension -Sleep apnea hypothyroidism For depression -Continue nicotine use with this some bronchitis and mild COPD patient is being discharged on inhalational steroids and albuterol and nicotine cessation counseling was provided For above-mentioned chronic medical problems patient will resume appropriate home medications. Patient will be discharged today with the above-mentioned plan
--- NOTE | 2019-10-12 15:33 | P.DS ---
Providers Date of admission: 10/11/19 14:16 Attending physician: Fredy Jiménez Consults: 10/11/19 14:16 Consult Physician Urgent Consulting Provider: Chadwick Perez Consult Reason/Comments: weakness Do you want consulting provider notified?: Yes Primary care physician: Fredy Jiménez Hospital Course: Please refer to HPI for further details Patient Condition at Discharge: Stable Plan - Discharge Summary Discharge Rx Participant: No New Discharge Prescriptions: New Levothyroxine Sodium [Euthyrox] 112 mcg PO DAILY #30 tablet Fluticasone/Salmeterol [Advair 250-50 Diskus] 1 inhalation PO BID #1 inhaler Budesonide-Formot 160-4.5 Mcg [Symbicort 160-4.5 Mcg Inhaler] 2 puff INHALATION BID #1 inhaler Continue Zolpidem [Ambien] 10 mg PO HS PRN PRN Reason: Insomnia Montelukast [Singulair] 10 mg PO DAILY amLODIPine BESYLATE [Norvasc] 5 mg PO QAM Lisinopril [Prinivil] 20 mg PO DAILY Atorvastatin [Lipitor] 20 mg PO DAILY Gabapentin [Neurontin] 400 mg PO TID Sertraline [Zoloft] 100 mg PO DAILY Omeprazole [PriLOSEC] 40 mg PO DAILY Meclizine [Antivert] 25 mg PO TID PRN #30 tab PRN Reason: Vertigo Discontinued Levothyroxine Sodium [Synthroid] 75 mcg PO QAM Discharge Medication List Lisinopril [Prinivil] 20 mg PO DAILY 06/13/14 [History] Montelukast [Singulair] 10 mg PO DAILY 06/13/14 [History] Zolpidem [Ambien] 10 mg PO HS PRN 06/13/14 [History] amLODIPine BESYLATE [Norvasc] 5 mg PO QAM 06/13/14 [History] Atorvastatin [Lipitor] 20 mg PO DAILY 11/02/16 [History] Gabapentin [Neurontin] 400 mg PO TID 07/20/18 [History] Omeprazole [PriLOSEC] 40 mg PO DAILY 10/11/19 [History] Sertraline [Zoloft] 100 mg PO DAILY 10/11/19 [History] Budesonide-Formot 160-4.5 Mcg [Symbicort 160-4.5 Mcg Inhaler] 2 puff INHALATION BID #1 inhaler 07/18/20 [Rx] Fluticasone/Salmeterol [Advair 250-50 Diskus] 1 inhalation PO BID #1 inhaler 10/12/19 [Rx] Levothyroxine Sodium [Euthyrox] 112 mcg PO DAILY #30 tablet 10/12/19 [Rx] Meclizine [Antivert] 25 mg PO TID PRN #30 tab 10/12/19 [Rx] Follow up Appointment(s)/Referral(s): Tyrel Blas MD [REFERRING] - 1 Week Fredy Jiménez MD [Primary Care Provider] - 3 Days Chadwick Gordillo MD [STAFF PHYSICIAN] - 1 Week Patient Instructions/Handouts: Vertigo (DC), Vertigo (GEN) Discharge Disposition: HOME SELF-CARE
== END 2019-10-12 14:26 | disposition home or self-care (01) ==
LOC: EC 09:48 → 1SOBS 14:16
PROVIDERS: ADMIT Family Medicine; ATTEND Family Medicine
DX: E03.9 Hypothyroidism, unspecified (principal); E78.5 Hyperlipidemia, unspecified; F17.200 Nicotine dependence, unspecified, uncomplicated; F32.9 Major depressive disorder, single episode, unspecified; F41.9 Anxiety disorder, unspecified; G47.30 Sleep apnea, unspecified; H81.399 Other peripheral vertigo, unspecified ear; I10 Essential (primary) hypertension; J44.9 Chronic obstructive pulmonary disease, unspecified; Z71.6 Tobacco abuse counseling; Z03.818 Encounter for observation for suspected exposure to other biological agents ruled out; K21.9 Gastro-esophageal reflux disease without esophagitis; K51.90 Ulcerative colitis, unspecified, without complications; Z79.51 Long term (current) use of inhaled steroids; Z79.890 Hormone replacement therapy; Z79.899 Other long term (current) drug therapy; Z80.1 Family history of malignant neoplasm of trachea, bronchus and lung; Z80.3 Family history of malignant neoplasm of breast; Z80.49 Family history of malignant neoplasm of other genital organs; Z80.8 Family history of malignant neoplasm of other organs or systems; Z90.49 Acquired absence of other specified parts of digestive tract; Z90.710 Acquired absence of both cervix and uterus; Z96.653 Presence of artificial knee joint, bilateral; Z91.040 Latex allergy status; Z98.84 Bariatric surgery status; Z82.49 Family history of ischemic heart disease and other diseases of the circulatory system; G93.89 Other specified disorders of brain
CPT/HCPCS: 96360; 96361; 99285; 36415; 94640; 93005; 84439; 84481; 83880; 80053; 83605; 83735; 84443; 84484; 85025; 85610; 85730; 81001; 80306; 71046; 70450; 70551; G0378 ×2; U0003

== ENCOUNTER 2019-11-14 08:52 | Day surgery (SDC) | payer MEDICARE, OTHER ==
[2019-11-11 15:47] VITALS: BMI 30.2
[~2019-11-14 08:52] MED LIST changes: -LIDOCAINE 1% 20 ML VIAL (10MG/ML) FOR IV START INTRADERMA PRN
[2019-11-14 09:16] VITALS: RESP 18; TEMP 98.2
[2019-11-14] MEDS ORDERED: LIDOCAINE 1% (10MG/ML) FOR IV START INTRADERMA ONE (09:25)
[2019-11-14] MEDS ORDERED: LIDOCAINE 1% INJ 10MG/ML (20 ML MDV) ONE (09:48)
[2019-11-14] MEDS ORDERED: PROPOFOL 10 MG/ML 20 ML VIAL IV ONE (09:48)
[2019-11-14] MEDS ORDERED: GLYCOPYRROLATE 0.2 MG/ML 2 ML VIAL ONE (09:48)
--- NOTE | 2019-11-14 09:52 | P.GSHP ---
History of Present Illness H&P Date: 11/14/19 Chief Complaint: GERD This a 62-year-old female presents today for EGD. She's had issues with GERD. Past Medical History Past Medical History: Asthma, Diabetes Mellitus, GERD/Reflux, Hyperlipidemia, Hypertension, Osteoarthritis (OA), Pneumonia, Sleep Apnea/CPAP/BIPAP, Thyroid Disorder Additional Past Medical History / Comment(s): Borderline Diabetes. Hypothyroidism, seasonal allergies, pain in neck, shoulders and knees. Aortic aneurysm. HX OF ULCERATIVE COLITIS, Hiatal hernia, anemia, constipation & diarrhea, no CPAP use currently. History of Any Multi-Drug Resistant Organisms: None Reported Past Surgical History: Appendectomy, Bariatric Surgery, Breast Surgery, Cholecystectomy, Hysterectomy, Joint Replacement Additional Past Surgical History / Comment(s): BREAST REDUCTION, LEFT TOTAL KNEE REPLACEMENT X2, RIGHT TOTAL KNEE REPLACEMENT X1, LAP BAND, lap band removal, revision to sleeve gastrectomy, shoulder surgery, 5' zamzam in left knee, Colonoscopy, Cataract surgery bilaterally. Past Anesthesia/Blood Transfusion Reactions: Family History of Problems w/ Anesthesia, Motion Sickness, Postoperative Nausea & Vomiting (PONV) Additional Past Anesthesia/Blood Transfusion Reaction / Comment(s): SISTER AND CHILDREN PONV. Past Psychological History: Anxiety, Depression Smoking Status: Former smoker Past Alcohol Use History: None Reported Additional Past Alcohol Use History / Comment(s): Quit smoking in 2003, started smoking at age 13, 1 PPD. Past Drug Use History: None Reported - Past Family History Sister(s) Family Medical History: Cancer Additional Family Medical History / Comment(s): BREAST CANCER ,#2 SISTER RECTAL CANCER. Father Family Medical History: Pulmonary Embolus Additional Family Medical History / Comment(s): Aneurysm. Brother(s) Family Medical History: Cancer Additional Family Medical History / Comment(s): One brother had lung cancer. BROTHER #2 ORAL CANCER. Mother Family Medical History: Cancer Additional Family Medical History / Comment(s): UTERINE CANCER. ALSO GRANDSON - LEUKEMIA X2. Medications and Allergies Home Medications Medication Instructions Recorded Confirmed Type Montelukast [Singulair] 10 mg PO DAILY 06/13/14 11/14/19 History Zolpidem [Ambien] 10 mg PO HS PRN 06/13/14 11/14/19 History amLODIPine BESYLATE [Norvasc] 5 mg PO QAM 06/13/14 11/14/19 History lisinopriL [Prinivil] 20 mg PO QAM 06/13/14 11/14/19 History Atorvastatin [Lipitor] 20 mg PO DAILY 11/02/16 11/14/19 History Gabapentin [Neurontin] 400 mg PO TID 07/20/18 11/14/19 History Omeprazole [PriLOSEC] 40 mg PO DAILY 10/11/19 11/14/19 History Sertraline [Zoloft] 150 mg PO DAILY 10/11/19 11/14/19 History Budesonide-Formot 160-4.5 Mcg 2 puff INHALATION BID #1 inhaler 10/12/19 11/14/19 Rx [Symbicort 160-4.5 Mcg Inhaler] Fluticasone/Salmeterol [Advair 1 inhalation PO BID #1 inhaler 10/12/19 11/14/19 Rx 250-50 Diskus] Levothyroxine Sodium [Euthyrox] 112 mcg PO DAILY #30 tablet 10/12/19 11/14/19 Rx Meclizine [Antivert] 25 mg PO TID PRN #30 tab 10/12/19 11/14/19 Rx Allergies Allergy/AdvReac Type Severity Reaction Status Date / Time latex Allergy Unknown Itching, Verified 11/14/19 09:17 Watery eyes, Swelling, RASH Surgical - Exam Vital Signs Temp Pulse Resp BP Pulse Ox 98.2 F 67 18 127/88 96 11/14/19 09:15 11/14/19 09:15 11/14/19 09:15 11/14/19 09:15 11/14/19 09:15 - General well developed, well nourished, no distress - Eyes PERRL - ENT normal pinna - Neck no masses - Respiratory normal expansion - Cardiovascular Rhythm: regular - Abdomen Abdomen: soft, non tender Assessment and Plan Assessment: GERD. We'll perform EGD.
--- NOTE | 2019-11-14 10:06 | P.OP ---
Date of Procedure: 11/14/19 Preoperative Diagnosis: GERD Postoperative Diagnosis: GERD. Possible sleeve stenosis Procedure(s) Performed: EGD Anesthesia: MAC Surgeon: Jerry Lynn Pathology: other (Antrum) Condition: stable Description of Procedure: The patient's placed on the endoscopy table in the lateral position she received IV sedation. The gastroscope placed oropharynx and passed in the esophagus and into the stomach. Scope then placed through the pylorus. The first and second portion duodenum appeared normal. Scope summer back and the antrum and a biopsy performed. Scope was then brought back the patient a previous gastric sleeve. In the mid part of the stomach appeared to be a possible stenosis. The 20- Divehi balloon was placed across the stomach and inflated and held in place for 3 minutes. He was a very minimal stricture. Scope was then brought back and the remainder stomach appeared normal. The GE junction was at 40 cm. The distal esophagus appeared inflamed. The proximal esophagus appeared normal. Scope was withdrawn for patient.
[2019-11-14 10:23] VITALS: BP 146/94; PULSE 75
== END 2019-11-14 10:34 | disposition home or self-care (01) ==
LOC: ORWHC2ENDO 08:52
PROVIDERS: ATTEND Surgery
DX: K21.0 Gastro-esophageal reflux disease with esophagitis (principal); K31.89 Other diseases of stomach and duodenum; K29.50 Unspecified chronic gastritis without bleeding; J45.909 Unspecified asthma, uncomplicated; E11.9 Type 2 diabetes mellitus without complications; E78.5 Hyperlipidemia, unspecified; I10 Essential (primary) hypertension; M19.90 Unspecified osteoarthritis, unspecified site; G47.30 Sleep apnea, unspecified; E03.9 Hypothyroidism, unspecified; K44.9 Diaphragmatic hernia without obstruction or gangrene; D64.9 Anemia, unspecified; K59.00 Constipation, unspecified; F32.9 Major depressive disorder, single episode, unspecified; F41.9 Anxiety disorder, unspecified; Z90.49 Acquired absence of other specified parts of digestive tract; Z87.19 Personal history of other diseases of the digestive system; Z98.84 Bariatric surgery status; Z98.890 Other specified postprocedural states; Z96.653 Presence of artificial knee joint, bilateral; Z98.41 Cataract extraction status, right eye; Z98.42 Cataract extraction status, left eye; Z87.891 Personal history of nicotine dependence; Z80.3 Family history of malignant neoplasm of breast; Z80.0 Family history of malignant neoplasm of digestive organs; Z80.49 Family history of malignant neoplasm of other genital organs; Z80.1 Family history of malignant neoplasm of trachea, bronchus and lung; Z80.6 Family history of leukemia; Z79.899 Other long term (current) drug therapy; Z79.51 Long term (current) use of inhaled steroids; Z79.890 Hormone replacement therapy; Z91.040 Latex allergy status; Z79.84 Long term (current) use of oral hypoglycemic drugs
CPT/HCPCS: 88305; 43239; 43249; J2001; J2704; C1726

== ENCOUNTER → 2020-01-20 | Outpatient (CLI) | payer MEDICARE, OTHER ==
[2020-01-20 13:19] VITALS: BP 130/90; PULSE 87; TEMP 98.5; BMI 31.4
--- NOTE | 2020-01-20 14:35 | P.HPBAR ---
Bariatric H&P - History & Physicial H&P Date: 01/20/20 History & Physicial: Visit/CC: EGD and stretch October 2019 Patient initial contact: Initial weight: 107.53 kg Initial weight in pounds: 237.06 Height: 5 ft 4 in Initial BMI: 40.6 Last weight: Current weight: 83.007 kg Current weight in pounds: 183.00 Current BMI: 31.4 [place] body weight (based on NIH guidelines): 54.431 kg Excess body weight loss: 46.1% The patient is a 65 year-old F who presents for Bariatric Assessment. Patient presents today for bariatric follow-up. She's had complaints of some GERD and dysphagia. Past Medical History Past Medical History: Asthma, Diabetes Mellitus, GERD/Reflux, Hyperlipidemia, Hypertension, Osteoarthritis (OA), Pneumonia, Sleep Apnea/CPAP/BIPAP, Thyroid Disorder Additional Past Medical History / Comment(s): Borderline Diabetes. Hypothyroidism, seasonal allergies, pain in neck, shoulders and knees. Aortic aneurysm. HX OF ULCERATIVE COLITIS, Hiatal hernia, anemia, constipation & diarrhea, no CPAP use currently. History of Any Multi-Drug Resistant Organisms: None Reported Past Surgical History: Appendectomy, Bariatric Surgery, Breast Surgery, Cholecystectomy, Hysterectomy, Joint Replacement Additional Past Surgical History / Comment(s): BREAST REDUCTION, LEFT TOTAL KNEE REPLACEMENT X2, RIGHT TOTAL KNEE REPLACEMENT X1, LAP BAND, lap band removal, revision to sleeve gastrectomy, shoulder surgery, 5' zamzam in left knee, Colonoscopy, Cataract surgery bilaterally. Past Anesthesia/Blood Transfusion Reactions: Family History of Problems w/ Anesthesia, Motion Sickness, Postoperative Nausea & Vomiting (PONV) Additional Past Anesthesia/Blood Transfusion Reaction / Comm: SISTER AND CHILD IFEANYI PONV. Past Psychological History: Anxiety, Depression Additional Psychological History / Comment(s): . Smoking Status: Former smoker Past Alcohol Use History: None Reported Additional Past Alcohol Use History / Comment(s): Quit smoking in 2003, started smoking at age 13, 1 PPD. Past Drug Use History: None Reported - Past Family History Sister(s) Family Medical History: Cancer Additional Family Medical History / Comment(s): BREAST CANCER ,#2 SISTER RECTAL CANCER. Father Family Medical History: Pulmonary Embolus Additional Family Medical History / Comment(s): Aneurysm. Brother(s) Family Medical History: Cancer Additional Family Medical History / Comment(s): One brother had lung cancer. BROTHER #2 ORAL CANCER. Mother Family Medical History: Cancer Additional Family Medical History / Comment(s): UTERINE CANCER. ALSO GRANDSON - LEUKEMIA X2. Surgical - Exam Vital Signs Temp Pulse BP 98.5 F 87 130/90 01/20/20 13:12 01/20/20 13:12 01/20/20 13:12 - General well developed, well nourished, no distress - Eyes PERRL - ENT normal pinna - Neck no masses - Respiratory normal expansion - Cardiovascular Rhythm: regular - Abdomen Abdomen: soft, non tender Bariatric Assessment & Plan Plan: GERD and dysphagia. Patient be scheduled for EGD and esophagram. She'll follow-up after this is performed. Bariatric Checklist Checklist: Plan: Checklist: EGD: 1. Hiatal hernia: 2. H. Pylori: HgbA1c: Vitamin D: Smoking: Former smoker Primary care physician referral: Fredy Jiménez Psychiatry clearance: Cardiology clearance: Sleep study: Diet journal: VTE risk score: VTE risk level: Rehab needs at discharge:
--- NOTE | 2020-01-20 16:21 | FL ---
EXAMINATION TYPE: FL barium swallow DATE OF EXAM: 01/20/2020 CLINICAL INDICATION: 65-year-old female (converted into a gastric sleeve in 2017. Complains of acid r eflux to the point of vomiting and choking especially at night. COMPARISON: 10/03/2016 Total Fluoroscopy Time: 1 minute 59 seconds. Total images: 42 FINDINGS: The cervical and thoracic portions have a normal course and caliber and overall normal motility. Allo wing for single contrast technique, the mucosa shows no gross abnormality and there is no persistent filling defect is encountered. The patient ingested a total of only 2.5 ounces of thin barium. There is a moderate-sized hiatal hernia. There is mild delay in passage of contrast into the stomach with blunted secondary stripping waves. Postsurgical changes of sleeve gastrectomy demonstrated. Turning and Valsalva maneuver while the patient is supine with its some gastroesophageal reflux into the lower esophagus. IMPRESSION: 1. Moderate sized hiatal hernia with gastroesophageal reflux visualized when the patient is supine. L imited assessment as to the severity of reflux given the small overall volume ingested by the patient . 2. Status post sleeve gastrectomy.
== END | disposition home or self-care (01) ==
LOC: BARWHC3 12:52
PROVIDERS: ATTEND Surgery
DX: Z48.815 Encounter for surgical aftercare following surgery on the digestive system (principal); Z98.84 Bariatric surgery status; Z98.890 Other specified postprocedural states; K21.9 Gastro-esophageal reflux disease without esophagitis; R13.10 Dysphagia, unspecified; Z90.49 Acquired absence of other specified parts of digestive tract
CPT/HCPCS: 74220; G0463; 99211

== ENCOUNTER 2020-02-28 07:27 | Day surgery (SDC) | payer MEDICARE, OTHER ==
[2020-02-26 13:51] VITALS: BMI 30.9
[~2020-02-28 07:27] MED LIST changes: +LIDOCAINE 1% (10MG/ML) FOR IV START INTRADERMA PRN
[2020-02-28] MEDS ORDERED: ONDANSETRON 4 MG/2 ML VIAL ONE (07:45)
[2020-02-28 07:46] VITALS: RESP 16; TEMP 97.2
[2020-02-28] MEDS ORDERED: ONDANSETRON 4 MG/2 ML VIAL IVP ONE (07:54)
[2020-02-28] MEDS ORDERED: PROPOFOL 10 MG/ML 20 ML VIAL IV ONE (08:20)
[2020-02-28] MEDS ORDERED: LIDOCAINE 1% INJ 10MG/ML (20 ML MDV) ONE (08:20)
--- NOTE | 2020-02-28 08:21 | P.GSHP ---
History of Present Illness H&P Date: 02/28/20 Chief Complaint: GERD Is a 65-year-old female who presents today for EGD. Patient has history of GERD. Her recent esophagram shows evidence of a moderate to large hiatal hernia. Past Medical History Past Medical History: Asthma, Diabetes Mellitus, GERD/Reflux, Hyperlipidemia, Hypertension, Osteoarthritis (OA), Pneumonia, Sleep Apnea/CPAP/BIPAP, Thyroid Disorder Additional Past Medical History / Comment(s): Borderline Diabetes. Hypothyroidism, seasonal allergies, pain in neck, shoulders and knees. Aortic aneurysm. HX OF ULCERATIVE COLITIS, Hiatal hernia, anemia, constipation & diarrhea, no CPAP use currently. History of Any Multi-Drug Resistant Organisms: None Reported Past Surgical History: Appendectomy, Bariatric Surgery, Breast Surgery, Cholecystectomy, Hysterectomy, Joint Replacement Additional Past Surgical History / Comment(s): BREAST REDUCTION, LEFT TOTAL KNEE REPLACEMENT X2, RIGHT TOTAL KNEE REPLACEMENT X1, LAP BAND, lap band removal, revision to sleeve gastrectomy, shoulder surgery, 5" zamzam in left knee, Colonoscopy, Cataract surgery bilaterally, lt thumb joint replacement, lt carpal tunnel Past Anesthesia/Blood Transfusion Reactions: Family History of Problems w/ Anesthesia, Motion Sickness, Postoperative Nausea & Vomiting (PONV) Additional Past Anesthesia/Blood Transfusion Reaction / Comment(s): SISTER AND CHILDREN PONV. Smoking Status: Former smoker - Past Family History Sister(s) Family Medical History: Cancer Additional Family Medical History / Comment(s): BREAST CANCER ,#2 SISTER RECTAL CANCER. Father Family Medical History: Pulmonary Embolus Additional Family Medical History / Comment(s): Aneurysm. Brother(s) Family Medical History: Cancer Additional Family Medical History / Comment(s): One brother had lung cancer. BROTHER #2 ORAL CANCER. Mother Family Medical History: Cancer Additional Family Medical History / Comment(s): UTERINE CANCER. ALSO GRANDSON - LEUKEMIA X2. Medications and Allergies Home Medications Medication Instructions Recorded Confirmed Type Montelukast [Singulair] 10 mg PO DAILY 06/13/14 02/26/20 History Zolpidem [Ambien] 10 mg PO HS PRN 06/13/14 02/26/20 History amLODIPine BESYLATE [Norvasc] 5 mg PO QAM 06/13/14 02/26/20 History lisinopriL [Prinivil] 20 mg PO QAM 06/13/14 02/28/20 History Atorvastatin [Lipitor] 20 mg PO DAILY 11/02/16 02/26/20 History Gabapentin [Neurontin] 400 mg PO TID 07/20/18 02/26/20 History Omeprazole [PriLOSEC] 40 mg PO DAILY 10/11/19 02/26/20 History Sertraline [Zoloft] 150 mg PO DAILY 10/11/19 02/26/20 History Budesonide-Formot 160-4.5 Mcg 2 puff INHALATION BID #1 inhaler 10/12/19 02/26/20 Rx [Symbicort 160-4.5 Mcg Inhaler] Fluticasone/Salmeterol [Advair 1 inhalation PO BID #1 inhaler 10/12/19 02/26/20 Rx 250-50 Diskus] Levothyroxine Sodium [Euthyrox] 112 mcg PO DAILY #30 tablet 10/12/19 02/26/20 Rx Meclizine [Antivert] 25 mg PO TID PRN #30 tab 10/12/19 02/26/20 Rx Allergies Allergy/AdvReac Type Severity Reaction Status Date / Time latex Allergy Unknown Itching, Verified 02/28/20 07:40 Watery eyes, Swelling, RASH aluminum Allergy Rash/Hives Verified 02/28/20 07:40 Surgical - Exam Vital Signs Temp Pulse Resp BP Pulse Ox 97.2 F L 78 16 140/93 94 L 02/28/20 07:45 02/28/20 07:45 02/28/20 07:45 02/28/20 07:45 02/28/20 07:45 - General well developed, well nourished, no distress - Eyes PERRL - ENT normal pinna - Neck no masses - Respiratory normal expansion - Cardiovascular Rhythm: regular - Abdomen Abdomen: soft Assessment and Plan Assessment: GERD. We'll perform EGD.
--- NOTE | 2020-02-28 08:32 | P.OP ---
Date of Procedure: 02/28/20 Preoperative Diagnosis: GERD Postoperative Diagnosis: Hiatal hernia Procedure(s) Performed: EGD Anesthesia: MAC Surgeon: Jerry Lynn Pathology: other (Stomach) Condition: stable Disposition: PACU Description of Procedure: The patient's placed on the endoscopy table in the lateral position. She receiv ed IV sedation. The gastroscope placed oropharynx and passed in the esophagus the patient had a hiatal hernia. The GE junction was at 37 cm. The scope was then placed into the gastric sleeve. His then placed through the pylorus and into the first and second portion of duodenum. Scope was then brought back the antrum this appeared normal. Scope summer back through the gastric sleeve there is known to obstruction. The scope was brought back into the hiatal hernia. There is evidence of some inflammatory changes this is biopsied. The GE junction was at 37 cm. The distal esophagus. Minimal inflamed. The proximal esophagus appeared normal. Scope was withdrawn for patient.
[2020-02-28 09:01] VITALS: BP 124/88; PULSE 85
== END 2020-02-28 09:15 | disposition home or self-care (01) ==
LOC: ORWHC2ENDO 07:27
PROVIDERS: ATTEND Surgery
DX: K20.0 Eosinophilic esophagitis (principal); K21.9 Gastro-esophageal reflux disease without esophagitis; K44.9 Diaphragmatic hernia without obstruction or gangrene; E11.9 Type 2 diabetes mellitus without complications; Z87.19 Personal history of other diseases of the digestive system; E78.5 Hyperlipidemia, unspecified; I10 Essential (primary) hypertension; M19.90 Unspecified osteoarthritis, unspecified site; G47.30 Sleep apnea, unspecified; Z99.89 Dependence on other enabling machines and devices; E03.9 Hypothyroidism, unspecified; J30.2 Other seasonal allergic rhinitis; M54.2 Cervicalgia; M25.512 Pain in left shoulder; M25.511 Pain in right shoulder; M25.562 Pain in left knee; M25.561 Pain in right knee; I71.9 Aortic aneurysm of unspecified site, without rupture; D64.9 Anemia, unspecified; K59.00 Constipation, unspecified; R19.7 Diarrhea, unspecified; Z96.653 Presence of artificial knee joint, bilateral; Z98.84 Bariatric surgery status; Z98.42 Cataract extraction status, left eye; Z98.41 Cataract extraction status, right eye; Z87.891 Personal history of nicotine dependence; Z80.3 Family history of malignant neoplasm of breast; Z80.0 Family history of malignant neoplasm of digestive organs; Z82.49 Family history of ischemic heart disease and other diseases of the circulatory system; Z80.6 Family history of leukemia; Z80.49 Family history of malignant neoplasm of other genital organs; Z79.890 Hormone replacement therapy; Z79.51 Long term (current) use of inhaled steroids; Z79.899 Other long term (current) drug therapy; Z91.040 Latex allergy status; Z91.09 Other allergy status, other than to drugs and biological substances
CPT/HCPCS: 88305; 43239; J2405; J2001; J2704

== ENCOUNTER → 2020-03-05 | Outpatient (CLI) | payer MEDICARE, OTHER ==
[2020-03-05 16:41] LABS: Basophils # (A) 0.1 k/uL (0-0.2); Basophils % (A) 1 %; Eosinophils # (A) 0.2 k/uL (0-0.7); Eosinophils % (A) 2 %; HCT 38.7 % (34.0-46.0); HGB 12.1 gm/dL (11.4-16.0); Hypochromasia Moderate; Lymphocytes # (A) 2.3 k/uL (1.0-4.8); Lymphocytes % (A) 22 %; MCH 23.1 pg (25.0-35.0); MCHC 31.4 g/dL (31.0-37.0); MCV 73.5 fL (80.0-100.0); Mean Platelet Volume 7.6; Microcytosis Slight; Monocytes # (A) 0.6 k/uL (0-1.0); Monocytes % (A) 6 %; Neutrophils # (A) 7.2 k/uL (1.3-7.7); Neutrophils % (A) 68 %; Platelet Count 316 k/uL (150-450); RBC 5.26 m/uL (3.80-5.40); RDW 15.9 % (11.5-15.5); WBC 10.5 k/uL (3.8-10.6)
== END | disposition home or self-care (01) ==
LOC: LABPAT 15:58
PROVIDERS: ATTEND Surgery
DX: Z01.818 Encounter for other preprocedural examination (principal); K21.00 Gastro-esophageal reflux disease with esophagitis, without bleeding; D64.9 Anemia, unspecified; F17.200 Nicotine dependence, unspecified, uncomplicated
CPT/HCPCS: 85025; 93005

== ENCOUNTER 2020-03-17 08:46 | Day surgery (SDC) | payer MEDICARE, OTHER ==
[~2020-03-17 08:46] MED LIST changes: +ACETAMINOPHEN TAB 500 MG TAB PO PRN; +DEXAMETHASONE SOD PHOSPHATE 4 MG/ML 1 ML VIAL IV ONE; +HEPARIN SODIUM,PORCINE 5,000 UNIT/ML 1 ML VIAL SQ PRN; +HYDROmorphone 0.5 MG/0.5 ML SYRINGE IVP PRN; +ONDANSETRON 4 MG/2 ML VIAL IVP ONE; +SCOPOLAMINE 1.5MG/72HR PATCH TRANSDERM ONE
[2020-03-17 09:15] LABS: Glucose,Whole Blood 106 mg/dL (75-99)
--- NOTE | 2020-03-17 10:34 | P.GSHP ---
History of Present Illness H&P Date: 03/17/20 Chief Complaint: GERD, dysphagia This a 65-year-old female who has a previous history of gastric sleeve surgery. Patient developed a moderate size hiatal hernia. She'll stay for laparoscopic repair of hiatal hernia. She's had some mild GERD and dysphagia. Past Medical History Past Medical History: Asthma, Diabetes Mellitus, GERD/Reflux, Hyperlipidemia, Hypertension, Osteoarthritis (OA), Pneumonia, Sleep Apnea/CPAP/BIPAP, Thyroid Disorder Additional Past Medical History / Comment(s): Borderline Diabetes. Hypothyroidism, seasonal allergies, pain in neck, shoulders and knees. Aortic aneurysm. HX OF ULCERATIVE COLITIS, Hiatal hernia, anemia, constipation & diarrhea, no CPAP use currently. History of Any Multi-Drug Resistant Organisms: None Reported Past Surgical History: Appendectomy, Bariatric Surgery, Breast Surgery, Cholecystectomy, Hysterectomy, Joint Replacement Additional Past Surgical History / Comment(s): BREAST REDUCTION, LEFT TOTAL KNEE REPLACEMENT X2, RIGHT TOTAL KNEE REPLACEMENT X1, LAP BAND, lap band removal, revision to sleeve gastrectomy, shoulder surgery, 5" zamzam in left knee, Colonoscopy, Cataract surgery bilaterally, lt thumb joint replacement, lt carpal tunnel, recent EGD Past Anesthesia/Blood Transfusion Reactions: Family History of Problems w/ Anesthesia, Motion Sickness, Postoperative Nausea & Vomiting (PONV) Additional Past Anesthesia/Blood Transfusion Reaction / Comment(s): SISTER AND CHILDREN PONV. Smoking Status: Former smoker - Past Family History Sister(s) Family Medical History: Cancer Additional Family Medical History / Comment(s): BREAST CANCER ,#2 SISTER RECTAL CANCER. Father Family Medical History: Pulmonary Embolus Additional Family Medical History / Comment(s): Aneurysm. Brother(s) Family Medical History: Cancer Additional Family Medical History / Comment(s): One brother had lung cancer. BROTHER #2 ORAL CANCER. Mother Family Medical History: Cancer Additional Family Medical History / Comment(s): UTERINE CANCER. ALSO GRANDSON - LEUKEMIA X2. Medications and Allergies Home Medications Medication Instructions Recorded Confirmed Type Montelukast [Singulair] 10 mg PO DAILY 06/13/14 03/17/20 History Zolpidem [Ambien] 10 mg PO HS PRN 06/13/14 03/17/20 History amLODIPine BESYLATE [Norvasc] 5 mg PO QAM 06/13/14 03/17/20 History lisinopriL [Prinivil] 20 mg PO QAM 06/13/14 03/17/20 History Gabapentin [Neurontin] 400 mg PO TID 07/20/18 03/17/20 History Omeprazole [PriLOSEC] 40 mg PO DAILY 10/11/19 03/17/20 History Sertraline [Zoloft] 150 mg PO DAILY 10/11/19 03/17/20 History Budesonide-Formot 160-4.5 Mcg 2 puff INHALATION BID #1 inhaler 10/12/19 03/17/20 Rx [Symbicort 160-4.5 Mcg Inhaler] Fluticasone/Salmeterol [Advair 1 inhalation PO BID #1 inhaler 10/12/19 03/17/20 Rx 250-50 Diskus] Levothyroxine Sodium [Euthyrox] 112 mcg PO DAILY #30 tablet 10/12/19 03/17/20 Rx Meclizine [Antivert] 25 mg PO TID PRN #30 tab 10/12/19 03/17/20 Rx Allergies Allergy/AdvReac Type Severity Reaction Status Date / Time latex Allergy Unknown Itching, Verified 03/17/20 09:01 Watery eyes, Swelling, RASH aluminum Allergy Rash/Hives Verified 03/17/20 09:01 Surgical - Exam Vital Signs Temp Pulse Resp BP Pulse Ox 98.4 F 74 16 121/75 96 03/17/20 09:29 03/17/20 09:29 03/17/20 09:29 03/17/20 09:29 03/17/20 09:29 - General well developed, well nourished, no distress - Eyes PERRL - ENT normal pinna - Neck no masses - Respiratory normal expansion - Cardiovascular Rhythm: regular - Abdomen Abdomen: soft, non tender Results - Labs Abnormal Lab Results - Last 24 Hours (Table) 03/17/20 Range/Units 09:11 POC Glucose (mg/dL) 106 H (75-99) mg/dL Assessment and Plan Assessment: Hiatal hernia. We'll perform laparoscopic repair.
[2020-03-17] MEDS ORDERED: BUPIVACAINE (PF) 0.25% 30 ML VIAL SQ ONE ×2 (10:54→11:16)
[2020-03-17] MEDS ORDERED: LIDOCAINE 1% INJ 10MG/ML (20 ML MDV) ONE (10:54)
[2020-03-17] MEDS ORDERED: PROPOFOL 10 MG/ML 20 ML VIAL IV ONE (10:54)
[2020-03-17] MEDS ORDERED: GLYCOPYRROLATE 0.2 MG/ML 2 ML VIAL ONE (10:54)
[2020-03-17] MEDS ORDERED: fentaNYL (PF) 50 MCG/ML 2 ML AMP ONE (10:54)
[2020-03-17] MEDS ORDERED: NEOSTIGMINE 1 MG/ML 10 ML VIAL ONE (10:54)
[2020-03-17] MEDS ORDERED: SUCCINYLCHOLINE CHLORIDE 100 MG/5 ML SYR IV ONE (10:54)
[2020-03-17] MEDS ORDERED: MIDAZOLAM 2 MG/2 ML VIAL ONE (10:54)
[2020-03-17] MEDS ORDERED: ROCURONIUM 10 MG/ML (10 ML VIAL) IV ONE (10:54)
[2020-03-17] MEDS ORDERED: LACTATED RINGERS 1,000 ML IV ONE ×3 (11:24→13:34)
[2020-03-17] MEDS ORDERED: ONDANSETRON 4 MG/2 ML VIAL IVP PRN (11:57)
[2020-03-17] MEDS ORDERED: D5-0.45% NACL WITH KCL 20MEQ/L 1,000 ML IV SCH (12:00)
--- NOTE | 2020-03-17 12:03 | P.OP ---
Date of Procedure: 03/17/20 Preoperative Diagnosis: Hiatal hernia Postoperative Diagnosis: paraEsophageal Hiatal hernia Procedure(s) Performed: Laparoscopic repair of hiatal hernia Anesthesia: EVAN Surgeon: Jerry Lynn Estimated Blood Loss (ml): 5 Pathology: none sent Condition: stable Disposition: PACU Description of Procedure: HThe patient was placed on the operating table in the supine position. The patient received general anesthesia. And was placed in dorsal lithotomy positio n. The patient was prepped and draped in the usual sterile fashion. The skin incision sites were anesthetized with 1% local Xylocaine. The skin was incised in the left periumbilical area and then using a blade less 5 mm trocar under direct visualization panel cavity was entered. After adequate insufflation the laparoscope was then placed into the peritoneal cavity. Next a 5 mm trochars placed in the right epigastric position. Another 5 millimeter trocar the right lateral position. Another 5 millimeter trocar in the left lateral position a 5 mm trocar is placed in the left epigastric position. And then the initial 5 mm trocar was exchanged for a 10 mm trocar. The left lateral lobe liver was retracted. The hernia was seen. The crural defect was then dissected using the Harmonic scissors device. A 360 crural dissection was performed the esophagus stomach was reduced back into the peritoneal Cavity. The crural defect was then closed using 2-0 Ethibond suture. Using 2-0 Ethibond suture the esophagus was secured to the right stephanie. There was no injury seen to the stomach or esophagus. The dilator was then withdrawn. The abdomen was irrigated there is no bleeding seen. The trochars were then withdrawn and then skin incision sites were closed using 3-0 Monocryl suture Steri-Strips are applied. Patient thought procedure well and sent to recovery room in stable condition.
[2020-03-17 12:21] LABS: Glucose,Whole Blood 159 mg/dL (75-99)
[2020-03-17] MEDS ORDERED: ONDANSETRON 4 MG/2 ML VIAL IVP ONE (12:47)
[2020-03-17 14:46] VITALS: BMI 31.0
[2020-03-17] MEDS: HYDROmorphone 1 MG/ML 1 ML SYRINGE IVP PRN ×2 (16:39→20:47)
[2020-03-17] MEDS ORDERED: amLODIPine 5 MG TAB PO STA (17:27)
[2020-03-17] MEDS: LACTATED RINGERS 1,000 ML IV SCH (22:52)
[2020-03-17] MEDS ORDERED: MECLIZINE 25 MG TAB PO PRN (23:00)
[2020-03-18] MEDS: HYDROmorphone 1 MG/ML 1 ML SYRINGE IVP PRN ×5 (00:38→16:55)
[2020-03-18] MEDS: LACTATED RINGERS 1,000 ML IV SCH ×3 (00:47→16:46)
[2020-03-18] MEDS: LEVOTHYROXINE 112 MCG TAB PO SCH (05:54)
[2020-03-18] MEDS: ENOXAPARIN 40 MG/0.4 ML SYRINGE SQ SCH (08:21)
[2020-03-18] MEDS: SYMBICORT 160-4.5 MCG INHALER INHALATION SCH ×2 (08:24→21:45)
[2020-03-18] MEDS ORDERED: SYMBICORT 80-4.5 MCG INHALER INHALATION SCH (09:00)
[2020-03-18 09:02] LABS: Basophils % (A) 1 %; Eosinophils # (A) 0.2 k/uL (0-0.7); Eosinophils % (A) 3 %; HCT 34.2 % (34.0-46.0); HGB 10.6 gm/dL (11.4-16.0); Hypochromasia Moderate; Lymphocytes # (A) 1.5 k/uL (1.0-4.8); Lymphocytes % (A) 22 %; MCH 22.5 pg (25.0-35.0); MCHC 30.9 g/dL (31.0-37.0); MCV 72.6 fL (80.0-100.0); Mean Platelet Volume 6.5; Microcytosis Moderate; Monocytes # (A) 0.4 k/uL (0-1.0); Monocytes % (A) 5 %; Neutrophils # (A) 4.6 k/uL (1.3-7.7); Neutrophils % (A) 68 %; Platelet Count 324 k/uL (150-450); RBC 4.71 m/uL (3.80-5.40); RDW 15.5 % (11.5-15.5); WBC 6.8 k/uL (3.8-10.6)
--- NOTE | 2020-03-18 09:19 | P.CONS ---
History of Present Illness - Chief Complaint Abdominal pain - History of Present Illness This is a consultation on a 65-year-old white female with known history of gastric sleeve in the past his developmental hernia. She is now postop day 4 laparoscopic repair. She has an underlying history of asthma which is stable. Review of Systems Constitutional: Denies chills, Denies fever Eyes: denies blurred vision, denies pain Ears, nose, mouth and throat: Denies headache, Denies sore throat Respiratory: Denies cough Gastrointestinal: Denies abdominal pain, Denies diarrhea, Denies nausea, Denies vomiting Genitourinary: Denies dysuria, Denies hematuria Past Medical History Past Medical History: Asthma, Diabetes Mellitus, GERD/Reflux, Hyperlipidemia, Hypertension, Osteoarthritis (OA), Pneumonia, Sleep Apnea/CPAP/BIPAP, Thyroid Disorder Additional Past Medical History / Comment(s): Borderline Diabetes. Hypothyroidism, seasonal allergies, pain in neck, shoulders and knees. Aortic aneurysm. HX OF ULCERATIVE COLITIS, Hiatal hernia, anemia, constipation & diarrhea, no CPAP use currently. History of Any Multi-Drug Resistant Organisms: None Reported Past Surgical History: Appendectomy, Bariatric Surgery, Breast Surgery, Cho lecystectomy, Hysterectomy, Joint Replacement Additional Past Surgical History / Comment(s): ryr BREAST REDUCTION, LEFT TOTAL KNEE REPLACEMENT X2, RIGHT TOTAL KNEE REPLACEMENT X1, LAP BAND, lap band removal, revision to sleeve gastrectomy, shoulder surgery, 5" zamzam in left knee, Colonoscopy, Cataract surgery bilaterally, lt thumb joint replacement, lt carpal tunnel, recent EGD, eye lid and eye brow lift Past Anesthesia/Blood Transfusion Reactions: Family History of Problems w/ Anesthesia, Motion Sickness, Postoperative Nausea & Vomiting (PONV) Additional Past Anesthesia/Blood Transfusion Reaction / Comm: SISTER AND CHI LDREN PONV. Past Psychological History: Anxiety, Depression Additional Psychological History / Comment(s): . Smoking Status: Former smoker Past Alcohol Use History: None Reported Additional Past Alcohol Use History / Comment(s): Quit smoking in 2013, started smoking at age 13, 1 PPD. Past Drug Use History: None Reported - Past Family History Sister(s) Family Medical History: Cancer Additional Family Medical History / Comment(s): BREAST CANCER ,#2 SISTER RECTAL CANCER. Father Family Medical History: Pulmonary Embolus Additional Family Medical History / Comment(s): Aneurysm. Brother(s) Family Medical History: Cancer Additional Family Medical History / Comment(s): One brother had lung cancer. BROTHER #2 ORAL CANCER. Mother Family Medical History: Cancer Additional Family Medical History / Comment(s): UTERINE CANCER. ALSO GRANDSON - LEUKEMIA X2. Medications and Allergies Home Medications Medication Instructions Recorded Confirmed Type Montelukast [Singulair] 10 mg PO DAILY 06/13/14 03/17/20 History Zolpidem [Ambien] 10 mg PO HS PRN 06/13/14 03/17/20 History amLODIPine BESYLATE [Norvasc] 5 mg PO QAM 06/13/14 03/17/20 History lisinopriL [Prinivil] 20 mg PO QAM 06/13/14 03/17/20 History Gabapentin [Neurontin] 400 mg PO TID 07/20/18 03/17/20 History Omeprazole [PriLOSEC] 40 mg PO DAILY 10/11/19 03/17/20 History Sertraline [Zoloft] 150 mg PO DAILY 10/11/19 03/17/20 History Budesonide-Formot 160-4.5 Mcg 2 puff INHALATION BID #1 inhaler 10/12/19 03/17/20 Rx [Symbicort 160-4.5 Mcg Inhaler] Fluticasone/Salmeterol [Advair 1 inhalation PO BID #1 inhaler 10/12/19 03/17/20 Rx 250-50 Diskus] Levothyroxine Sodium [Euthyrox] 112 mcg PO DAILY #30 tablet 10/12/19 03/17/20 Rx Meclizine [Antivert] 25 mg PO TID PRN #30 tab 10/12/19 03/17/20 Rx Allergies Allergy/AdvReac Type Severity Reaction Status Date / Time latex Allergy Unknown Itching, Verified 03/17/20 09:01 Watery eyes, Swelling, RASH aluminum Allergy Rash/Hives Verified 03/17/20 09:01 Physical Exam Vitals: Vital Signs Temp Pulse Pulse Resp BP BP Pulse Ox 03/18/20 08:18 98.5 F 93 16 126/84 93 L 03/18/20 01:59 98.2 F 75 16 117/76 96 03/17/20 20:10 98.1 F 63 16 124/85 98 03/17/20 18:40 91 20 135/87 98 03/17/20 17:21 71 20 147/101 98 03/17/20 16:21 64 20 158/106 99 03/17/20 15:21 65 20 147/93 99 03/17/20 15:06 60 20 140/92 100 03/17/20 14:51 59 L 20 145/96 99 03/17/20 14:36 58 L 20 143/91 99 03/17/20 14:21 98.8 F 54 L 20 155/99 98 03/17/20 14:00 18 03/17/20 13:23 72 16 112/74 98 03/17/20 13:08 62 16 124/61 98 03/17/20 12:53 64 16 133/67 98 03/17/20 12:38 71 16 137/84 97 03/17/20 12:23 69 16 142/82 97 03/17/20 12:08 96.8 F L 80 16 159/74 94 L 03/17/20 09:29 98.4 F 74 16 121/75 96 Intake and Output 03/17/20 03/18/20 03/18/20 22:59 06:59 14:59 Intake Total 40 360 Output Total 480 Balance -440 360 Intake: Oral 40 360 Output: Urine 480 Other: Voiding Method Toilet # Voids 1 1 Weight 82 kg - Constitutional General appearance: no acute distress - EENT Eyes: EOMI - Neck Neck: no lymphadenopathy - Respiratory Respiratory: bilateral: rhonchi - Cardiovascular Rhythm: regular Heart sounds: normal: S1, S2 Abnormal Heart Sounds: no S3 Gallop - Gastrointestinal General gastrointestinal: soft, no tenderness - Integumentary Integumentary: no cellulitis Results CBC & Chem 7: 03/18/20 08:48 Labs: Abnormal Lab Results - Last 24 Hours (Table) 03/17/20 03/18/20 Range/Units 12:19 08:48 Hgb 10.6 L (11.4-16.0) gm/dL MCV 72.6 L (80.0-100.0) fL MCH 22.5 L (25.0-35.0) pg MCHC 30.9 L (31.0-37.0) g/dL POC Glucose (mg/dL) 159 H (75-99) mg/dL Assessment and Plan (1) Asthma Current Visit: No Status: Acute Code(s): J45.909 - UNSPECIFIED ASTHMA, UNCOMPLICATED SNOMED Code(s): 239227410 (2) Hyperlipidemia Current Visit: No Status: Acute Code(s): E78.5 - HYPERLIPIDEMIA, UNSPECIFIED SNOMED Code(s): 37204596 (3) Hypernatremia Current Visit: No Status: Resolved Code(s): E87.0 - HYPEROSMOLALITY AND HYPERNATREMIA SNOMED Code(s): 296645682 (4) Hiatal hernia Current Visit: Yes Status: Acute Code(s): K44.9 - DIAPHRAGMATIC HERNIA WITHOUT OBSTRUCTION OR GANGRENE SNOMED Code(s): 26174083 Plan: The patient has some postoperative congestion. We will go ahead and start nebulizer treatments. After barium swallow advance diet. New. Check chest x-ray. Dr. Aguilar's group will be covering after today. See orders otherwise.
[2020-03-18 09:29] LABS: African American GFR (CKD) >90 (>60 ml/min/1.73 sqM); Anion Gap 1 mmol/L; Blood Urea Nitrogen 8 mg/dL (7-17); Calcium 8.5 mg/dL (8.4-10.2); Carbon Dioxide 33 mmol/L (22-30); Chloride 102 mmol/L (98-107); Glucose 96 mg/dL (74-99); Non-African American GFR(CKD) >90 (>60 ml/min/1.73 sqM); Potassium 3.7 mmol/L (3.5-5.1); Sodium 136 mmol/L (137-145)
[2020-03-18] MEDS: MONTELUKAST 10 MG TAB PO SCH (10:23)
[2020-03-18] MEDS: GABAPENTIN 400 MG CAP PO SCH ×3 (10:23→21:22)
[2020-03-18] MEDS: PANTOPRAZOLE 40 MG TABLET PO SCH (10:24)
[2020-03-18] MEDS: lisinopriL 20 MG TAB PO SCH (10:24)
[2020-03-18] MEDS: SERTRALINE 50 MG TAB PO SCH (10:30)
[2020-03-18] MEDS: amLODIPine 5 MG TAB PO SCH (10:30)
--- NOTE | 2020-03-18 10:37 | XR ---
EXAMINATION TYPE: XR chest 2V DATE OF EXAM: 03/18/2020 COMPARISON: 10/11/2019 Small amount of postoperative pneumoperitoneum identified. HISTORY: Shortness of breath TECHNIQUE: Frontal and lateral views of the chest are obtained. FINDINGS: Scattered senescent parenchymal changes noted. Hyperinflation compatible with COPD. No evidence for infiltrate. No evidence for atelectasis. Heart size is stable. Mediastinal structures are stable and grossly unremarkable. No evidence for hilar prominence. Degenerative changes dorsal spine. IMPRESSION: 1. No evidence for acute pulmonary disease.
[2020-03-18] MEDS: IPRATROPIUM-ALBUTEROL 3 ML NEB INHALATION SCH ×3 (12:12→21:46)
--- NOTE | 2020-03-18 12:21 | FL ---
EXAMINATION TYPE: FL esophagus cervic/pharynx DATE OF EXAM: 03/18/2020 HISTORY: Status post lap band removal and gastric sleeve placement COMPARISON: 01/20/2020 barium swallow TECHNIQUE: A single contrast limited esophagram is performed with attention directed to the surgical bed. FINDINGS: Contrast material pools at the level of the distal esophagus, there is a rattail appearance present w ith hesitation of contrast across this level. Proximal stomach does show some contrast collection due to the initial swallow. Contrast material does not course distally despite several minutes of time. Free air is noted beneath the right hemidiaphragm. Basilar atelectatic changes are present. 1 minute 47 seconds fluoroscopy time, 5 images obtained IMPRESSION: High-grade obstruction across the surgical bed. Incidental pneumoperitoneum.
--- NOTE | 2020-03-18 13:15 | P.PN ---
Subjective Progress Note Date: 03/18/20 CHIEF COMPLAINT: Paraesophageal Hiatal hernia HISTORY OF PRESENT ILLNESS: Patient is status post laparoscopic repair of hiatal hernia. Patient is tolerating anything clear liquid diet. She denies any dif ficulty swallowing. Patient complaining of a coarse productive cough. She does have a history of asthma and COPD. She uses her Symbicort and nebulizer treatments at home. These have been restarted this morning. She denies any shortness of breath. She reports minimal abdominal pain. Denies any nausea or vomiting. Denies any flatus. Afebrile. WBC 6.8 hemoglobin 10.6 Upper GI shows high-grade obstruction across the surgical bed. Incidental pneumoperitoneum. Report was reviewed by Dr. Lynn Chest x-ray no evidence of acute pulmonary disease PHYSICAL EXAM: VITAL SIGNS: Reviewed. GENERAL: Well-developed in no acute distress. HEENT: No sclera icterus. Extraocular movements grossly intact. Moist buccal mucosa. Head is atraumatic, normocephalic. ABDOMEN: Soft. Nondistended. Incision sites clean dry and intact NEUROLOGIC: Alert and oriented. Cranial nerves II through XII grossly intact. ASSESSMENT: 1. Paraesophageal hiatal hernia status post laparoscopic repair of hiatal hernia PLAN: -Continue Samaria clear liquid diet -Nebulizer treatments added this morning for patient's cough -Encourage patient to ambulate and use incentive spirometer -Add Citronelle for pain control -GI prophylaxis Protonix and DVT prophylaxis Lovenox Physician Associate Java Developer note has been reviewed by physician. Signing provider agrees with the documented findings, assessment, and plan of care. Objective - Vital Signs Vital signs: Vital Signs Temp 98.5 F 03/18/20 11:58 Pulse 89 03/18/20 12:27 Resp 16 03/18/20 11:58 BP 110/69 03/18/20 11:58 Pulse Ox 96 03/18/20 11:58 Intake & Output 03/17/20 03/18/20 03/18/20 18:59 06:59 18:59 Intake Total 2150 400 Output Total 890 Balance 1260 400 Weight 82 kg Intake: IV 2150 Oral 400 Output: Urine 880 Estimated Blood Loss 10 Other: Voiding Method Toilet # Voids 1 1 - Labs CBC & Chem 7: 03/18/20 08:48 03/18/20 08:48 Labs: Abnormal Lab Results - Last 24 Hours (Table) 03/18/20 03/18/20 Range/Units 08:48 08:48 Hgb 10.6 L (11.4-16.0) gm/dL MCV 72.6 L (80.0-100.0) fL MCH 22.5 L (25.0-35.0) pg MCHC 30.9 L (31.0-37.0) g/dL Sodium 136 L (137-145) mmol/L Carbon Dioxide 33 H (22-30) mmol/L
[2020-03-18] MEDS: HYDROcodone/APAP 5-325MG 1 EACH TAB PO PRN ×2 (13:49→21:22)
[2020-03-18] MEDS ORDERED: ACETAMINOPHEN TAB 325 MG TAB PO PRN (16:58)
[2020-03-18] MEDS ORDERED: ZOLPIDEM 10 MG TAB PO PRN (20:15)
[2020-03-19] MEDS: LACTATED RINGERS 1,000 ML IV SCH ×3 (03:00→14:55)
[2020-03-19] MEDS: LEVOTHYROXINE 112 MCG TAB PO SCH (05:57)
[2020-03-19 06:40] LABS: Basophils % (A) 1 %; Eosinophils # (A) 0.4 k/uL (0-0.7); Eosinophils % (A) 5 %; HGB 10.4 gm/dL (11.4-16.0); Hypochromasia Moderate; Lymphocytes # (A) 1.4 k/uL (1.0-4.8); Lymphocytes % (A) 19 %; MCHC 31.6 g/dL (31.0-37.0); MCV 72.8 fL (80.0-100.0); Mean Platelet Volume 6.4; Microcytosis Moderate; Monocytes # (A) 0.3 k/uL (0-1.0); Monocytes % (A) 4 %; Neutrophils # (A) 5.1 k/uL (1.3-7.7); Neutrophils % (A) 70 %; Platelet Count 300 k/uL (150-450); RBC 4.54 m/uL (3.80-5.40); RDW 15.6 % (11.5-15.5); WBC 7.3 k/uL (3.8-10.6)
[2020-03-19 06:55] LABS: African American GFR (CKD) >90 (>60 ml/min/1.73 sqM); Anion Gap -1 mmol/L; Blood Urea Nitrogen 5 mg/dL (7-17); Calcium 8.3 mg/dL (8.4-10.2); Carbon Dioxide 34 mmol/L (22-30); Chloride 103 mmol/L (98-107); Glucose 120 mg/dL (74-99); Non-African American GFR(CKD) >90 (>60 ml/min/1.73 sqM); Potassium 3.6 mmol/L (3.5-5.1); Sodium 136 mmol/L (137-145)
[2020-03-19] MEDS: ENOXAPARIN 40 MG/0.4 ML SYRINGE SQ SCH (08:33)
[2020-03-19] MEDS: lisinopriL 20 MG TAB PO SCH (08:34)
[2020-03-19] MEDS: MONTELUKAST 10 MG TAB PO SCH (08:34)
[2020-03-19] MEDS: SERTRALINE 50 MG TAB PO SCH (08:34)
[2020-03-19] MEDS: GABAPENTIN 400 MG CAP PO SCH ×3 (08:34→21:54)
[2020-03-19] MEDS: PANTOPRAZOLE 40 MG TABLET PO SCH (08:34)
[2020-03-19] MEDS: amLODIPine 5 MG TAB PO SCH (08:34)
[2020-03-19] MEDS: IPRATROPIUM-ALBUTEROL 3 ML NEB INHALATION SCH ×6 (09:12→23:28)
[2020-03-19] MEDS: SYMBICORT 160-4.5 MCG INHALER INHALATION SCH ×3 (09:12→23:28)
--- NOTE | 2020-03-19 13:03 | P.DS ---
Providers Date of admission: 03/17/2020 Expected date of discharge: 03/19/20 Attending physician: Jerry Lynn Consults: 03/17/20 11:57 Consult Physician Routine Consulting Provider: Fredy Jiménez Consult Reason/Comments: Medical management Do you want consulting provider notified?: Yes Primary care physician: Fredy Jiménez Hospital Course: This a 65-year-old female who underwent laparoscopic repair of hiatal hernia. Patient's postoperative stay was unremarkable. Please see hospital chart for details. Procedures: Laparoscopic hiatal hernia. Patient Condition at Discharge: Good Plan - Discharge Summary Discharge Rx Participant: Yes New Discharge Prescriptions: New Docusate [Colace] 100 mg PO BID #20 capsule Ibuprofen [Motrin] 600 mg PO Q6HR PRN #40 tab PRN Reason: Pain oxyCODONE HCL [OxyIR] 5 mg PO Q4H PRN 3 Days #18 tab PRN Reason: Pain Acetaminophen Tab [Tylenol] 650 mg PO Q6H #30 tab No Action Zolpidem [Ambien] 10 mg PO HS PRN PRN Reason: Insomnia Montelukast [Singulair] 10 mg PO DAILY amLODIPine BESYLATE [Norvasc] 5 mg PO QAM lisinopriL [Prinivil] 20 mg PO QAM Gabapentin [Neurontin] 400 mg PO TID Sertraline [Zoloft] 150 mg PO DAILY Omeprazole [PriLOSEC] 40 mg PO DAILY Levothyroxine Sodium [Euthyrox] 112 mcg PO DAILY #30 tablet Meclizine [Antivert] 25 mg PO TID PRN #30 tab PRN Reason: Vertigo Fluticasone/Salmeterol [Advair 250-50 Diskus] 1 inhalation PO BID #1 inhaler Budesonide-Formot 160-4.5 Mcg [Symbicort 160-4.5 Mcg Inhaler] 2 puff INHALATION BID #1 inhaler Discharge Medication List Montelukast [Singulair] 10 mg PO DAILY 06/13/14 [History] Zolpidem [Ambien] 10 mg PO HS PRN 06/13/14 [History] amLODIPine BESYLATE [Norvasc] 5 mg PO QAM 06/13/14 [History] lisinopriL [Prinivil] 20 mg PO QAM 06/13/14 [History] Gabapentin [Neurontin] 400 mg PO TID 07/20/18 [History] Omeprazole [PriLOSEC] 40 mg PO DAILY 10/11/19 [History] Sertraline [Zoloft] 150 mg PO DAILY 10/11/19 [History] Budesonide-Formot 160-4.5 Mcg [Symbicort 160-4.5 Mcg Inhaler] 2 puff INHALATION BID #1 inhaler 10/12/19 [Rx] Fluticasone/Salmeterol [Advair 250-50 Diskus] 1 inhalation PO BID #1 inhaler 10/12/19 [Rx] Levothyroxine Sodium [Euthyrox] 112 mcg PO DAILY #30 tablet 10/12/19 [Rx] Meclizine [Antivert] 25 mg PO TID PRN #30 tab 10/12/19 [Rx] Acetaminophen Tab [Tylenol] 650 mg PO Q6H #30 tab 03/19/20 [Rx] Docusate [Colace] 100 mg PO BID #20 capsule 03/19/20 [Rx] Ibuprofen [Motrin] 600 mg PO Q6HR PRN #40 tab 03/19/20 [Rx] oxyCODONE HCL [OxyIR] 5 mg PO Q4H PRN 3 Days #18 tab 03/19/20 [Rx] Follow up Appointment(s)/Referral(s): Jerry Lynn MD [STAFF PHYSICIAN] - 1 Week Discharge Disposition: HOME SELF-CARE
[2020-03-19] MEDS: PIPERACILLIN-TAZOBACTAM 3.375 GM in SODIUM CHLORIDE 0.9% 100 ML IVPB SCH ×2 (14:14→21:55)
[2020-03-19] MEDS: methylPREDNISolone SOD SUCCI 40 MG/ML 1 ML VIAL IV SCH ×2 (14:14→23:20)
--- NOTE | 2020-03-19 14:44 | CT ---
EXAM: CT Angiography Chest With Intravenous Contrast CLINICAL HISTORY: ITS.REASON CT Reason: PE TECHNIQUE: Axial computed tomographic angiography images of the chest with intravenous contrast. CTDI is 11.69 mGy and DLP is 248.5 mGy-cm. This CT exam was performed using one or more of the following dose reduction techniques: automated exposure control, adjustment of the mA and/or kV according to patient size, and/or use of iterative reconstruction technique. MIP reconstructed images were created and reviewed. COMPARISON: None available FINDINGS: Pulmonary arteries: No pulmonary embolus identified. Aorta: No aortic aneurysm or dissection. Lungs: Patchy ground-glass opacities in the right upper lobe may represent an infectious/inflammatory process. Dependent atelectasis bilaterally. Pleural space: Small left greater than right pleural effusions. No pneumothorax. Heart: Unremarkable. No cardiomegaly. No significant pericardial effusion. No evidence of RV dysfunction. Bones/joints: No acute fracture. No dislocation. Soft tissues: Unremarkable. Lymph nodes: Unremarkable. No enlarged lymph nodes. Stomach and bowel: Postsurgical changes of the stomach partially visualized. IMPRESSION: 1. No pulmonary embolus identified. 2. No aortic aneurysm or dissection. 3. Small left greater than right pleural effusions. 4. Patchy ground-glass opacities in the right upper lobe may represent an infectious/inflammatory process.
[2020-03-19] MEDS: HYDROcodone/APAP 5-325MG 1 EACH TAB PO PRN (16:43)
--- NOTE | 2020-03-19 20:10 | P.PN ---
Subjective This is a pleasant 65 years old female with past medical history of asthma, diabetes mellitus, hypertension, hyperlipidemia, osteoarthritis, GERD. She was admitted for paraesophageal hiatal hernia related to her gastroesophageal reflux disease, she underwent laparoscopic repair of her hiatal hernia on 03/17 with surgery primary team Today is postoperative day #2. She was lying in bed slightly tachypneic with coughing and phlegm of unknown color. However she denies chest pain and no significant dyspnea at rest however on exertion her oxygen dropped to mid 80s I recommended repeat chest x-ray from today however the system was found and no image or report was reported to the system however verbally the radiology team the bed side nurse that the patient has left side mild pleural effusion and possible infiltrate. Because of this we started the patient on antibiotic, Zosyn, small dose of steroids. And we asked for pulmonary consult Her discharge scheduled to happen today by surgery primary team was held as well. Objective - Vital Signs Vital signs: Vital Signs Temp 98.6 F 03/19/20 08:33 Pulse 115 H 03/19/20 13:29 Resp 16 03/19/20 08:33 BP 142/90 03/19/20 08:33 Pulse Ox 87 L 03/19/20 13:29 Intake & Output 03/18/20 03/19/20 03/19/20 18:59 06:59 18:59 Intake Total 480 320 Output Total 480 Balance 480 320 -480 Intake: Oral 480 320 Output: Urine 480 Other: Voiding Method Toilet Toilet # Voids 1 1 3 - Exam GENERAL: The patient is alert and oriented x3, not in any acute distress. Well developed, well nourished. HEENT: Pupils are round and equally reacting to light. EOMI. No scleral icterus. No conjunctival pallor. Normocephalic, atraumatic. No pharyngeal erythema. No thyromegaly. CARDIOVASCULAR: S1 and S2 present. No murmurs, rubs, or gallops. -PULMONARY: Chest is clear to auscultation, scattered wheezing. No crackles. ABDOMEN: Soft, nontender, nondistended, normoactive bowel sounds. No palpable organomegaly. MUSCULOSKELETAL: No joint swelling or deformity. EXTREMITIES: No cyanosis, clubbing, or pedal edema. NEUROLOGICAL: Gross neurological examination did not reveal any focal deficits. SKIN: No rashes. no petechiae. - Labs CBC & Chem 7: 03/19/20 06:27 03/19/20 06:27 Labs: Abnormal Lab Results - Last 24 Hours (Table) 03/19/20 03/19/20 Range/Units 06:27 06:27 Hgb 10.4 L (11.4-16.0) gm/dL Hct 33.0 L (34.0-46.0) % MCV 72.8 L (80.0-100.0) fL MCH 23.0 L (25.0-35.0) pg RDW 15.6 H (11.5-15.5) % Sodium 136 L (137-145) mmol/L Carbon Dioxide 34 H (22-30) mmol/L BUN 5 L (7-17) mg/dL Glucose 120 H (74-99) mg/dL Calcium 8.3 L (8.4-10.2) mg/dL Assessment and Plan Assessment: Acute hypoxic respiratory failure Possible pneumonia with mild asthma exacerbation esophageal hiatal hernia status post laparoscopic repair on 03/17 History of GERD History of asthma with possible exacerbation Hypertension Hyperlipidemia Osteoarthritis Hypothyroidism History of sleep apnea Plan: This is a pleasant 65 years old female status post hernia repair. With some hives proximal and respiratory distress suspected for pneumonia and asthma exa cerbation. Start Zosyn. Solu-Medrol small dose and pulmonary consult with Dr. Grossman Labs and medication were reviewed.. Continue same treatment. Continue with symptomatic treatment. Resume home medication. Monitor lytes and vitals. DVT and GI prophylaxis. Further recommendationsas per clinical course of the patient DVT prophylaxis and GI Prophylaxis: Per primary team
[2020-03-19] MEDS ORDERED: ZOLPIDEM 5 MG TAB PO PRN (22:12)
[2020-03-20] MEDS: PIPERACILLIN-TAZOBACTAM 3.375 GM in SODIUM CHLORIDE 0.9% 100 ML IVPB SCH (05:41)
[2020-03-20] MEDS: LEVOTHYROXINE 112 MCG TAB PO SCH (05:42)
[2020-03-20] MEDS: LACTATED RINGERS 1,000 ML IV SCH ×2 (05:43→13:51)
[2020-03-20] MEDS: IPRATROPIUM-ALBUTEROL 3 ML NEB INHALATION SCH ×2 (07:39→11:07)
[2020-03-20] MEDS: SYMBICORT 160-4.5 MCG INHALER INHALATION SCH (07:39)
[2020-03-20] MEDS: SERTRALINE 50 MG TAB PO SCH (09:27)
[2020-03-20] MEDS: ENOXAPARIN 40 MG/0.4 ML SYRINGE SQ SCH (09:27)
[2020-03-20] MEDS: GABAPENTIN 400 MG CAP PO SCH (09:28)
[2020-03-20] MEDS: PANTOPRAZOLE 40 MG TABLET PO SCH (09:28)
[2020-03-20] MEDS: amLODIPine 5 MG TAB PO SCH (09:28)
[2020-03-20] MEDS: MONTELUKAST 10 MG TAB PO SCH (09:28)
[2020-03-20] MEDS: lisinopriL 20 MG TAB PO SCH (09:28)
[2020-03-20] MEDS ORDERED: AMOXIC-POT CLAV 875-125MG 1 EACH TAB PO SCH (12:00)
--- NOTE | 2020-03-20 13:28 | P.PN ---
Subjective Progress Note Date: 03/20/20 CHIEF COMPLAINT: Gastroesophageal reflux disease HISTORY OF PRESENT ILLNESS: The patient is a 65-year-old female status post hiatal hernia repair. She denies current shortness of breath. She is tolerating clear liquid diet. She is on no straws or carbonated beverages. ROS: No reports of nausea and vomiting. No bowel movements. No fevers or chills. No new chest pain. No productive sputum PHYSICAL EXAM: VITAL SIGNS: Reviewed CONSTITUTIONAL: Well developed and in no acute distress. EYES: Conjuctivae without sclera icterus. Extraocular movements grossly intact. HEAD, EARS, NOSE, THROAT: Moist buccal mucosa. Head is atraumatic, normocephalic. Hears conversational speech. No nasal drainage. NECK: Supple. RESPIRATORY: Non-labored respirations and equal bilateral excursions. CARDIOVASCULAR: Regular rate. Regular rhythm. ABDOMEN: Soft. No peritonitis. MUSCULOSKELETAL: No gross deformity of the lower extremities noted. No clubbing. No cyanosis. SKIN: Good skin turgor. Well perfused. NEUROLOGIC: Cranial nerves II through XII grossly intact. No focal or lateralizing signs. PSYCH: Appropriate affect. Alert and oriented to person, place and time. CLINICAL LABS: White blood cell count normal, 7.3 STUDIES: CTA report reviewed of the chest is negative for pulmonary embolism. ASSESSMENT: 1. Hiatal hernia 2. Gastroesophageal reflux disease. PLAN: 1. Discharge diet reviewed. 2. Discharge medication reconciliation performed. 3. Patient cleared for discharge status post hiatal hernia repair. Objective - Vital Signs Vital signs: Vital Signs Temp 98 F 03/20/20 09:25 Pulse 79 03/20/20 11:19 Resp 20 03/20/20 10:39 BP 130/88 03/20/20 08:00 Pulse Ox 96 03/20/20 10:39 Intake & Output 03/19/20 03/20/20 03/20/20 18:59 06:59 18:59 Intake Total 1020 90 Output Total 480 Balance -480 1020 90 Intake: Oral 1020 90 Output: Urine 480 Other: Voiding Method Toilet # Voids 2 2 1 # Bowel Movements 1 - Labs CBC & Chem 7: 03/19/20 06:27 03/19/20 06:27 Assessment and Plan (1) Gastroesophageal reflux disease Status: Acute Code(s): K21.9 - GASTRO-ESOPHAGEAL REFLUX DISEASE WITHOUT ESOPHAGITIS SNOMED Code(s): 197434231 (2) Hiatal hernia Status: Acute Code(s): K44.9 - DIAPHRAGMATIC HERNIA WITHOUT OBSTRUCTION OR GANGRENE SNOMED Code(s): 17159803
--- NOTE | 2020-03-20 13:32 | P.PN ---
Subjective This is a pleasant 65 years old female with past medical history of asthma, diabetes mellitus, hypertension, hyperlipidemia, osteoarthritis, GERD. She was admitted for paraesophageal hiatal hernia related to her gastroesophageal reflux disease, she underwent laparoscopic repair of her hiatal hernia on 03/17 with surgery primary team Today is postoperative day #2. She was lying in bed slightly tachypneic with coughing and phlegm of unknown color. However she denies chest pain and no significant dyspnea at rest however on exertion her oxygen dropped to mid 80s I recommended repeat chest x-ray from today however the system was found and no image or report was reported to the system however verbally the radiology team the bed side nurse that the patient has left side mild pleural effusion and possible infiltrate. Because of this we started the patient on antibiotic, Zosyn, small dose of steroids. And we asked for pulmonary consult Her discharge scheduled to happen today by surgery primary team was held as well. 03/20/2020 Patient is awake . She is breathing easier. No cough and no chest pain or dyspnea. She is saturating 96% on room air With exertion her oxygen saturation was 96% as well. CTA of the chest ordered yesterday by the pulmonary service showing no PE. No aortic aneurysm. Patchy ground glass opacity in the right upper lobe may represent an infectious/inflammatory process. With a small left greater than right pleural effusions We can switch her Zosyn to Augmentin. And I don't think she needs more steroids upon discharge as she is not wheezing and she is saturating well on room air. Patient was instructed to follow-up with PCP Dr. Jiménez in 1 week as well as with nursing project coordinator Dr. Grossman in one week and she agrees to call and make appointment as today is Prentice Patient is medically stable for discharge once she is cleared by both surgery primary care and pulmonary service Objective - Vital Signs Vital signs: Vital Signs Temp 98 F 03/20/20 09:25 Pulse 79 03/20/20 11:19 Resp 20 03/20/20 10:39 BP 130/88 03/20/20 08:00 Pulse Ox 96 03/20/20 10:39 Intake & Output 03/19/20 03/20/20 03/20/20 18:59 06:59 18:59 Intake Total 1020 90 Output Total 480 Balance -480 1020 90 Intake: Oral 1020 90 Output: Urine 480 Other: Voiding Method Toilet # Voids 2 2 1 # Bowel Movements 1 - Exam GENERAL: The patient is alert and oriented x3, not in any acute distress. Well developed, well nourished. HEENT: Pupils are round and equally reacting to light. EOMI. No scleral icterus. No conjunctival pallor. Normocephalic, atraumatic. No pharyngeal erythema. No thyromegaly. CARDIOVASCULAR: S1 and S2 present. No murmurs, rubs, or gallops. -PULMONARY: Chest is clear to auscultation, scattered wheezing. No crackles. ABDOMEN: Soft, nontender, nondistended, normoactive bowel sounds. No palpable organomegaly. MUSCULOSKELETAL: No joint swelling or deformity. EXTREMITIES: No cyanosis, clubbing, or pedal edema. NEUROLOGICAL: Gross neurological examination did not reveal any focal deficits. SKIN: No rashes. no petechiae. - Labs CBC & Chem 7: 03/19/20 06:27 03/19/20 06:27 Assessment and Plan Assessment: Acute hypoxic respiratory failure. Improved Mostly right upper mild pneumonia , walking pneumonia. No COPD or asthma exacerbation esophageal hiatal hernia status post laparoscopic repair on 03/17 History of GERD History of asthma with possible exacerbation Hypertension Hyperlipidemia Osteoarthritis Hypothyroidism History of sleep apnea Plan: This is a pleasant 65 years old female status post hernia repair. With some hives proximal and respiratory distress suspected for pneumonia and asthma exacerbation. Her oxygen saturation is back to normal at rest and at exertion. Patient symptoms improved We can switch her Zosyn to Augmentin. And I don't think she needs more steroids upon discharge as she is not wheezing and she is saturating well on room air. Patient was instructed to follow-up with PCP Dr. Jiménez in 1 week as well as with nursing project coordinator Dr. Grossman in one week and she agrees to call and make appointment as today is holiday Prentice Patient is medically stable for discharge once she is cleared by both surgery primary care and pulmonary service Labs and medication were reviewed.. Continue same treatment. Continue with symptomatic treatment. Resume home medication. Monitor lytes and vitals. DVT and GI prophylaxis. Further recommendationsas per clinical course of the patient DVT prophylaxis and GI Prophylaxis: Per primary team
[2020-03-20 14:52] VITALS: BP 141/89; PULSE 81; RESP 18; TEMP 97.4
--- NOTE | 2020-03-20 16:31 | P.CNPUL ---
History of Present Illness Consult date: 03/20/20 Reason for consult: dyspnea, COPD, hypoxemia, obstructive sleep apnea Chief complaint: Shortness of breath and hypoxia History of present illness: This is a 65-year-old pleasant female well-known to me with history of bronchial asthma diabetes also history of obstructive sleep apnea, patient has not been using her CPAP machine, she was admitted into the hospital with paraesophageal hiatal hernia causing significant symptomatic GERD, she underwent laparoscopy Repair of hiatal hernia surgery on March 17, postoperatively on day #2 she developed some shortness of breath cough and mucoid sputum production, oxygen dr opped down into 80s, chest x-ray done however no significant finding identified, patient was given doses of antibiotics with Zosyn and steroids with significant improvement, a computed tomography scan was done to rule out pulmonary embolism which was negative cervical infiltrate in the right upper lobe seen, patient is currently asymptomatic denies any respiratory complaints with oxygen saturation is stable patient is cleared for discharge and follow-up as outpatient Review of Systems All systems: negative Past Medical History Past Medical History: Asthma, Diabetes Mellitus, GERD/Reflux, Hyperlipidemia, Hypertension, Osteoarthritis (OA), Pneumonia, Sleep Apnea/CPAP/BIPAP, Thyroid Disorder Additional Past Medical History / Comment(s): Borderline Diabetes. Hypothyroidism, seasonal allergies, pain in neck, shoulders and knees. Aortic aneurysm. HX OF ULCERATIVE COLITIS, Hiatal hernia, anemia, constipation & diarrhea, no CPAP use currently. History of Any Multi-Drug Resistant Organisms: None Reported Past Surgical History: Appendectomy, Bariatric Surgery, Breast Surgery, Cholecystectomy, Hysterectomy, Joint Replacement Additional Past Surgical History / Comment(s): ryr BREAST REDUCTION, LEFT TOTAL KNEE REPLACEMENT X2, RIGHT TOTAL KNEE REPLACEMENT X1, LAP BAND, lap band removal, revision to sleeve gastrectomy, shoulder surgery, 5" zamzam in left knee, Colonoscopy, Cataract surgery bilaterally, lt thumb joint replacement, lt carpal tunnel, recent EGD, eye lid and eye brow lift Past Anesthesia/Blood Transfusion Reactions: Family History of Problems w/ Anesthesia, Motion Sickness, Postoperative Nausea & Vomiting (PONV) Additional Past Anesthesia/Blood Transfusion Reaction / Comment(s): SISTER AND CHILDREN PONV. Past Psychological History: Anxiety, Depression Additional Psychological History / Comment(s): . Smoking Status: Former smoker Past Alcohol Use History: None Reported Additional Past Alcohol Use History / Comment(s): Quit smoking in 2013, started smoking at age 13, 1 PPD. Past Drug Use History: None Reported - Past Family History Sister(s) Family Medical History: Cancer Additional Family Medical History / Comment(s): BREAST CANCER ,#2 SISTER RECTAL CANCER. Father Family Medical History: Pulmonary Embolus Additional Family Medical History / Comment(s): Aneurysm. Brother(s) Family Medical History: Cancer Additional Family Medical History / Comment(s): One brother had lung cancer. BROTHER #2 ORAL CANCER. Mother Family Medical History: Cancer Additional Family Medical History / Comment(s): UTERINE CANCER. ALSO GRANDSON - LEUKEMIA X2. Medications and Allergies Home Medications Medication Instructions Recorded Confirmed Type Montelukast [Singulair] 10 mg PO DAILY 06/13/14 03/17/20 History Zolpidem [Ambien] 10 mg PO HS PRN 06/13/14 03/17/20 History amLODIPine BESYLATE [Norvasc] 5 mg PO QAM 06/13/14 03/17/20 History lisinopriL [Prinivil] 20 mg PO QAM 06/13/14 03/17/20 History Gabapentin [Neurontin] 400 mg PO TID 07/20/18 03/17/20 History Omeprazole [PriLOSEC] 40 mg PO DAILY 10/11/19 03/17/20 History Sertraline [Zoloft] 150 mg PO DAILY 10/11/19 03/17/20 History Budesonide-Formot 160-4.5 Mcg 2 puff INHALATION BID #1 inhaler 10/12/19 03/17/20 Rx [Symbicort 160-4.5 Mcg Inhaler] Fluticasone/Salmeterol [Advair 1 inhalation PO BID #1 inhaler 10/12/19 03/17/20 Rx 250-50 Diskus] Levothyroxine Sodium [Euthyrox] 112 mcg PO DAILY #30 tablet 10/12/19 03/17/20 Rx Meclizine [Antivert] 25 mg PO TID PRN #30 tab 10/12/19 03/17/20 Rx Acetaminophen Tab [Tylenol] 650 mg PO Q6H #30 tab 03/19/20 Rx Docusate [Colace] 100 mg PO BID #20 capsule 03/19/20 Rx Ibuprofen [Motrin] 600 mg PO Q6HR PRN #40 tab 03/19/20 Rx oxyCODONE HCL [OxyIR] 5 mg PO Q4H PRN 3 Days #18 tab 03/19/20 Rx Amoxic-Pot Clav 875-125Mg 1 each PO Q12HR 5 Days #10 tab 03/20/20 Rx [Augmentin 875-125] Allergies Allergy/AdvReac Type Severity Reaction Status Date / Time latex Allergy Unknown Itching, Verified 03/17/20 09:01 Watery eyes, Swelling, RASH aluminum Allergy Rash/Hives Verified 03/17/20 09:01 Physical Exam Vitals: Vital Signs Temp Pulse Pulse Pulse Resp BP Pulse Ox 03/20/20 14:53 18 03/20/20 14:52 97.4 F L 81 18 141/89 97 03/20/20 11:19 79 03/20/20 11:07 78 03/20/20 10:39 124 H 20 96 03/20/20 09:25 98 F 80 03/20/20 08:00 99 18 130/88 95 03/20/20 07:50 76 03/20/20 07:40 76 03/20/20 01:51 98.0 F 78 18 121/78 92 L 03/19/20 23:30 80 03/19/20 19:56 98.6 F 76 20 102/66 93 L 03/19/20 16:52 80 03/19/20 16:44 80 Intake and Output 03/20/20 03/20/20 03/20/20 06:59 14:59 22:59 Intake Total 600 90 Balance 600 90 Intake: Oral 600 90 Other: # Voids 2 1 # Bowel Movements 1 - Constitutional General appearance: average body habitus, cooperative, disheveled - EENT Eyes: PERRLA Ears: bilateral: normal - Neck Carotids: bilateral: upstroke normal Thyroid: bilateral: normal size - Respiratory Respiratory: bilateral: CTA - Cardiovascular Rhythm: regular Heart sounds: normal: S1, S2 - Gastrointestinal General gastrointestinal: decreased bowel sounds - Integumentary Integumentary: normal turgor - Neurologic Neurologic: CNII-XII intact - Musculoskeletal Musculoskeletal: gait normal, generalized weakness, strength equal bilaterally - Psychiatric Psychiatric: A&O x's 3, appropriate affect, intact judgment & insight Results - Laboratory Findings CBC and BMP: 03/19/20 06:27 03/19/20 06:27 Abnormal lab findings: Abnormal Labs 03/17/20 03/17/20 03/18/20 09:11 12:19 08:48 Hgb 10.6 L Hct MCV 72.6 L MCH 22.5 L MCHC 30.9 L RDW Sodium Carbon Dioxide BUN Glucose POC Glucose (mg/dL) 106 H 159 H Calcium 03/18/20 03/19/20 03/19/20 08:48 06:27 06:27 Hgb 10.4 L Hct 33.0 L MCV 72.8 L MCH 23.0 L MCHC RDW 15.6 H Sodium 136 L 136 L Carbon Dioxide 33 H 34 H BUN 5 L Glucose 120 H POC Glucose (mg/dL) Calcium 8.3 L - Diagnostic Findings Chest x-ray: report reviewed, image reviewed CT scan - chest: report reviewed, image reviewed (Chest x-ray is unremarkable, computed tomography scan of the chest revealed subtle interstitial infiltrate in the right upper lobe) Assessment and Plan Assessment: Postoperative hypoxia and desaturation likely due to sleep disorder breathing and sleep apnea occurred chemical pneumonitis cannot be excluded, patient res ponded well with the antibiotics we'll discharge and follow-up as outpatient Chemical pneumonitisc SLEEP disorder breathing and sleep apnea Mild intermittent chronic asthma Plan: Agree with discharge planning, patient instructed to call us if symptoms developed again, advised to redo sleep study and need to use CPAP machine once recovered from postoperative phase Time with Patient: Greater than 30
--- NOTE | 2020-03-21 10:32 | XR ---
EXAMINATION TYPE: XR chest 1V DATE OF EXAM: 03/19/2020 COMPARISON: 03/18/2020 HISTORY: 65-year-old female coughing TECHNIQUE: Single frontal view of the chest is obtained. FINDINGS: Heart borderline in size. The previous right-sided pneumoperitoneum appears to have resolved. Focal r etrocardiac opacity persists, likely combination of small effusion and atelectasis/consolidation. IMPRESSION: Focal retrocardiac opacity, probably combination of pleural effusion with atelectasis or infiltrate r emains.
== END 2020-03-20 16:00 | disposition home or self-care (01) ==
LOC: OR 08:46 → 6PED 12:03 → OR 03-20 16:00
PROVIDERS: ATTEND Surgery
DX: K44.9 Diaphragmatic hernia without obstruction or gangrene (principal); J96.01 Acute respiratory failure with hypoxia; J18.9 Pneumonia, unspecified organism; J44.9 Chronic obstructive pulmonary disease, unspecified; K21.00 Gastro-esophageal reflux disease with esophagitis, without bleeding; E87.0 Hyperosmolality and hypernatremia; I10 Essential (primary) hypertension; E03.9 Hypothyroidism, unspecified; M19.90 Unspecified osteoarthritis, unspecified site; E78.5 Hyperlipidemia, unspecified; K51.90 Ulcerative colitis, unspecified, without complications; E11.9 Type 2 diabetes mellitus without complications; G47.33 Obstructive sleep apnea (adult) (pediatric); Z79.51 Long term (current) use of inhaled steroids; Z91.040 Latex allergy status; Z79.890 Hormone replacement therapy; Z79.899 Other long term (current) drug therapy; Z90.49 Acquired absence of other specified parts of digestive tract; Z98.890 Other specified postprocedural states; Z90.79 Acquired absence of other genital organ(s); Z98.49 Cataract extraction status, unspecified eye; Z98.84 Bariatric surgery status; F41.9 Anxiety disorder, unspecified; F32.9 Major depressive disorder, single episode, unspecified; Z87.891 Personal history of nicotine dependence; Z80.3 Family history of malignant neoplasm of breast; Z80.0 Family history of malignant neoplasm of digestive organs; Z82.49 Family history of ischemic heart disease and other diseases of the circulatory system; Z80.1 Family history of malignant neoplasm of trachea, bronchus and lung; Z80.49 Family history of malignant neoplasm of other genital organs; Z80.6 Family history of leukemia; Z91.048 Other nonmedicinal substance allergy status; Z96.653 Presence of artificial knee joint, bilateral
CPT/HCPCS: 94640 ×5; 80048; 85025; 74210; 71046; 43281; J2543 ×2; J2250; J1644; J1100; J2710; J2920; J0690; J2405; J2001; J1650 ×3; J3010; J1170 ×2; J0330; J2704; Q9967

== ENCOUNTER → 2020-04-21 | Outpatient (CLI) | payer MEDICARE, OTHER ==
[2020-04-21 13:01] VITALS: BP 114/80; PULSE 101; RESP 18; TEMP 97.9
--- NOTE | 2020-04-21 13:39 | P.HPOB ---
History of Present Illness H&P Date: 04/21/20 Chief Complaint: The patient is here for her routine gynecologic exam and ma mmogram. This is a 65-year-old 0-3 with an LMP of 1984. The patient continues to have an occasional vaginal discharge with odor. She denies seeing discharge today, but noticed some yesterday and it had a greenish appearance. She also has noted some urinary changes including a urine appearing darker colored and she has also noticed an odor with the urine. She states the odor can be signif icant enough where a person using the toilet after her will notice the smell. She denies dysuria or urinary frequency or urgency. She has not been sexually active for several years. Review of Systems The patient has gained 7 pounds over the last year. She denies respiratory, cardiac, or G.I. problems. Past Medical History Past Medical History: Asthma, Diabetes Mellitus, GERD/Reflux, Hyperlipidemia, Hypertension, Osteoarthritis (OA), Pneumonia, Sleep Apnea/CPAP/BIPAP, Thyroid Disorder Additional Past Medical History / Comment(s): Borderline Diabetes. Hypothyroidism, seasonal allergies, pain in neck, shoulders and knees. Aortic aneurysm. HX OF ULCERATIVE COLITIS, Hiatal hernia, anemia, constipation & diarrhea, no CPAP use currently. PAST [employer] HISTORY: She has no history of STDs. History of Any Multi-Drug Resistant Organisms: None Reported Past Surgical History: Appendectomy, Bariatric Surgery, Breast Surgery, Cholecystectomy, Hysterectomy, Joint Replacement Additional Past Surgical History / Comment(s): ryr BREAST REDUCTION, LEFT TOTAL KNEE REPLACEMENT X2, RIGHT TOTAL KNEE REPLACEMENT X1, LAP BAND, lap band removal, revision to sleeve gastrectomy, shoulder surgery, 5" zamzam in left knee, [id number], Cataract surgery bilaterally, lt thumb joint replacement, lt carpal tunnel, recent EGD, eye lid and eye brow lift. Hiatal hernia repair, upper endoscopy and bilateral carpal tunnel surgeries. Past Anesthesia/Blood Transfusion Reactions: Family History of Problems w/ Anesthesia, Motion Sickness, Postoperative Nausea & Vomiting (PONV) Additional Past Anesthesia/Blood Transfusion Reaction / Comment(s): SISTER AND CHILDREN PONV. Past Psychological History: Anxiety, Depression Additional Psychological History / Comment(s): . Smoking Status: Former smoker Past Alcohol Use History: None Reported Additional Past Alcohol Use History / Comment(s): Quit smoking in 2013, started smoking at age 13, 1 PPD. Past Drug Use History: None Reported Additional History: She has been a since 2019 and is not sexually active. She is disabled. - Past Family History Sister(s) Family Medical History: Cancer Additional Family Medical History / Comment(s): BREAST CANCER ,#2 SISTER RECTAL CANCER. Father Family Medical History: Pulmonary Embolus Additional Family Medical History / Comment(s): Aneurysm. Brother(s) Family Medical History: Cancer Additional Family Medical History / Comment(s): One brother had lung cancer. BROTHER #2 ORAL CANCER. Mother Family Medical History: Cancer Additional Family Medical History / Comment(s): UTERINE CANCER. ALSO GRANDSON - LEUKEMIA X2. Medications and Allergies Home Medications Medication Instructions Recorded Confirmed Type Montelukast [Singulair] 10 mg PO DAILY 06/13/14 04/21/20 History Zolpidem [Ambien] 10 mg PO HS PRN 06/13/14 04/21/20 History amLODIPine BESYLATE [Norvasc] 5 mg PO QAM 06/13/14 04/21/20 History lisinopriL [Prinivil] 20 mg PO QAM 06/13/14 04/21/20 History Gabapentin [Neurontin] 400 mg PO TID 07/20/18 04/21/20 History Omeprazole [PriLOSEC] 40 mg PO DAILY 10/11/19 04/21/20 History Sertraline [Zoloft] 150 mg PO DAILY 10/11/19 04/21/20 History Budesonide-Formot 160-4.5 Mcg 2 puff INHALATION BID #1 inhaler 10/12/19 04/21/20 Rx [Symbicort 160-4.5 Mcg Inhaler] Fluticasone/Salmeterol [Advair 1 inhalation PO BID #1 inhaler 10/12/19 04/21/20 Rx 250-50 Diskus] Levothyroxine Sodium [Euthyrox] 112 mcg PO DAILY #30 tablet 10/12/19 04/21/20 Rx Meclizine [Antivert] 25 mg PO TID PRN #30 tab 10/12/19 04/21/20 Rx Acetaminophen Tab [Tylenol] 650 mg PO Q6H #30 tab 03/19/20 04/21/20 Rx Docusate [Colace] 100 mg PO BID #20 capsule 03/19/20 04/21/20 Rx Ibuprofen [Motrin] 600 mg PO Q6HR PRN #40 tab 03/19/20 04/21/20 Rx oxyCODONE HCL [OxyIR] 5 mg PO Q4H PRN 3 Days #18 tab 03/19/20 04/21/20 Rx Allergies Allergy/AdvReac Type Severity Reaction Status Date / Time latex Allergy Unknown Itching, Verified 04/21/20 12:57 Watery eyes, Swelling, RASH aluminum Allergy Rash/Hives Verified 04/21/20 12:57 Exam Vital Signs Temp Pulse Resp BP Pulse Ox 04/21/20 12:57 97.9 F 101 H 18 114/80 96 Intake and Output 04/20/20 04/21/20 04/21/20 22:59 06:59 14:59 Other: Weight 83.007 kg Height 5 feet 3-1/2 inches, weight 183 pounds, BMI 31.9. This is a well-developed well-nourished white female who is alert and oriented times 3 in no acute distress. HEENT: Within normal limits. NECK: Supple without mass or thyromegaly. CHEST AND LUNGS: Clear to auscultation. HEART: Regular rate and rhythm. BREASTS: Are without mass or discharge. AXILLARY EXAM: Negative for adenopathy. BACK: Negative for CVA tenderness. ABDOMEN: Soft, nontender, without palpable masses. PELVIC EXAM: External genitalia appears normal with mild to moderate atrophy. Vagina appears normal mild or moderate atrophy. There is no gross vaginal discharge on inspection. Upon taking a swab from the vagina, the white swab turns yellow after swabbing from the back of the vagina. No significant odor is noted. There is no evidence of prolapse. Bimanual examination is negative for mass or tenderness. RECTAL EXAM: Rectovaginal exam is negative for mass or tenderness and is negative for occult blood. There is no evidence of rectovaginal fistula with rectovaginal examination. EXTREMITIES: Nontender. IMPRESSION: 1. 65-year-old menopausal female status post DONAVON for benign reasons with intermittent vaginal discharge noted and slight yellowish vaginal discharge on exam today. 2. Urinary odor noticed by the patient. Differential diagnosis will include UTI, odor from foods or medications/supplements, or bacterial vaginosis. 3. History of osteopenia. PLAN: 1. Pap smears have been discontinued. 2. Self breast awareness was discussed with the patient. 3. Screening mammogram will be done today. 4. Affirm vaginitis panel has been obtained from the vagina. This will check for Theresa, rubella, and Trichomonas. 5. Osteoporosis prevention was discussed. I have stressed the importance of adequate calcium, vitamin D and regular exercise. Recommended amounts of calcium and vitamin D were also discussed. We will plan on repeating the bone density test in 1 year since her last one was less than 2 years ago. 6. Urine will be sent for urinalysis and culture with sensitivities. 7. We have discussed colorectal screening and colonoscopy testing. She is unsu re when her last one was done and will check with her PCP to determine if she is due for one. Dr. Vides has done her colonoscopies in the past. 8. She was advised to return in one year for her annual well woman exam.
--- NOTE | 2020-04-22 13:36 | P.PN ---
Progress Note - Text Progress Note Date: 04/22/20 OUTPATIENT FOLLOW-UP NOTE TEST(S)/RESULTS: Testing from 04/21/2020 includes affirm testing negative for jeremías, Gardnerella, and Trichomonas. Urinalysis shows a small leukocyte esterase and moderate mucus. METHOD OF NOTIFICATION: The patient was notified by phone. PATIENT COMMENTS: DIAGNOSIS: Negative affirm vaginitis panel and urinalysis showing small leukocyte esterase DISCUSSION: We will await for the urine culture results PLAN: As Above
--- NOTE | 2020-04-23 11:37 | MM ---
Reason for exam: screening (asymptomatic). Last mammogram was performed 1 year and 6 months ago. History: Family history of breast cancer in sister. 1994. Physical Findings: A clinical breast exam by your physician is recommended on an annual basis and results should be correlated with mammographic findings. MG 3D Screening Mammo W/Cad Bilateral CC and MLO view(s) were taken. Prior study comparison: October 30, 2018, bilateral MG 3d screening mammo w/cad. May 10, 2016, bilateral MG 3d screening mammo w/cad. The breast tissue is heterogeneously dense. This may lower the sensitivity of mammography. There is chronic nodularity in the right breast. No significant changes when compared with prior studies. ASSESSMENT: Benign, BI-RAD 2 RECOMMENDATION: Routine screening mammogram of both breasts in 1 year.
== END | disposition home or self-care (01) ==
LOC: WWCWWP 12:24
PROVIDERS: ATTEND Obstetrics & Gynecology
DX: Z12.31 Encounter for screening mammogram for malignant neoplasm of breast (principal)
CPT/HCPCS: 77063; 77067

== ENCOUNTER → 2020-07-14 | Outpatient (CLI) | payer MEDICARE, OTHER ==
--- NOTE | 2020-07-14 12:58 | CT ---
EXAMINATION TYPE: CT angio abdomen DATE OF EXAM: 07/14/2020 HISTORY: abnormal chest xray and chest ct CT DLP: 576.2mGycm Automated Exposure Control for Dose Reduction was Utilized. CONTRAST: CTA scan of the abdomen and pelvis is performed without oral and with IV Contrast, patient injected w ith 100 mL of Isovue 370. Aneurysm protocol with 3-D reconstructive images created on an independent workstation and reviewed. COMPARISON: CTA July 20, 2018 FINDINGS: VASCULAR: Tortuous course to the distal thoracic aorta is redemonstrated. Patent celiac artery and SM A without significant stenosis. Patent bilateral single renal arteries without significant stenosis. Ectasia to the infrarenal abdominal aorta without greater than 3.0 cm aneurysm. Patent ASHER. Mild to m oderate mixed plaque in the infrarenal abdominal aorta. 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 More prominent mixed plaque on the left remains present near image 44 similar to prior. Aneurysmal extension into the internal iliac artery on the right is redem onstrated image 51 similar to prior. Satisfactory flow to the common femoral arteries bilaterally wit hout significant stenosis. LUNG BASES: No significant abnormality is appreciated. LIVER/GB: Stable hypodense 1.1 cm lesion left hepatic dome axial image 6 favoring benign thin-walled cyst. Subcentimeter hyperdense focus to the right of this is nonspecific favored benign flash filling hemangioma. Gallbladder surgically absent. PANCREAS: No significant abnormality is seen. SPLEEN: No significant abnormality is seen. ADRENALS: No significant abnormality is seen. KIDNEYS: No significant abnormality is seen. BOWEL: No suspicious small or large bowel dilatation. Surgical changes from appendectomy in the right pelvis. UTERUS/ADNEXA: Uterus is surgically absent. LYMPH NODES: No greater than 1cm abdominal or pelvic lymph nodes are appreciated. OSSEOUS STRUCTURES: Moderate disc space narrowing L4-L5 level. Multilevel vacuum disc phenomenon and disc space narrowing along with multilevel spurring. OTHER: Stable small fat-containing umbilical hernia. 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 Extension into the right internal iliac artery is redemonstrated.
== END | disposition home or self-care (01) ==
LOC: RADCTMAIN 11:48
PROVIDERS: ATTEND Family Medicine
DX: I72.3 Aneurysm of iliac artery (principal)
CPT/HCPCS: 74175; Q9967

== ENCOUNTER → 2021-03-12 | Day surgery (SDC) | payer MEDICARE, OTHER ==
[2021-03-11 08:55] VITALS: BMI 32.4
[~2021-03-12] MED LIST changes: -ACETAMINOPHEN TAB 500 MG TAB PO PRN; -DEXAMETHASONE SOD PHOSPHATE 4 MG/ML 1 ML VIAL IV ONE; -HEPARIN SODIUM,PORCINE 5,000 UNIT/ML 1 ML VIAL SQ PRN; +LACTATED RINGERS 1,000 ML IV ONE; -LIDOCAINE 1% (10MG/ML) FOR IV START INTRADERMA PRN; +LIDOCAINE 1% INJ 10MG/ML (20 ML MDV) ONE; +MIDAZOLAM 2 MG/2 ML VIAL IV PRN; +PROPOFOL 10 MG/ML 20 ML VIAL IV ONE; +ROPIVACAINE 5 MG/ML 30 ML VIAL ONE; +SODIUM CHLORIDE 0.9% (PF) 10 ML VIAL ONE; +SUCCINYLCHOLINE CHLORIDE 100 MG/5 ML SYR IV ONE; +fentaNYL (PF) 50 MCG/ML 2 ML AMP ONE
[2021-03-12 10:28] LABS: Glucose,Whole Blood 95 mg/dL (75-99)
[2021-03-12 13:48] VITALS: TEMP 96.8
[2021-03-12 14:37] VITALS: RESP 17
[2021-03-12 14:57] VITALS: BP 125/86; PULSE 69
[2021-03-12 15:01] LABS: Glucose,Whole Blood 102 mg/dL (75-99)
--- NOTE | 2021-03-12 15:39 | P.OP ---
Date of Procedure: 03/12/21 Preoperative Diagnosis: 1. Hallux rigidus right foot 2. Primary osteoarthritis right midfoot Postoperative Diagnosis: 1. Same 2. Same Procedure(s) Performed: 1. First metatarsal phalangeal joint arthrodesis right foot 2. Arthrodesis of the second and third tarsometatarsal joints right foot Implants: Arthrex MaxForce plate Novastep 2 hole compression plate Novastep compression staple Anesthesia: EVAN Surgeon: Medardo Grady Estimated Blood Loss (ml): 5 Pathology: none sent Condition: stable Disposition: PACU Description of Procedure: Prior to the patient being brought to the operative room anesthesia administered nerve block on the right lower extremity utilizing ultrasonic guidance and having the patient under mild sedation. Then the patient was brought into the operating room and placed on table supine position. Timeout was taken to c onfirm correct patient identifiers, correct site of surgery, and correct procedure. When all staff in the room in agreement with the timeout the patient was induced and placed under general anesthesia. A well-padded tourniquet was placed on the right ankle and then the right foot was prepped and draped usual manner. The foot was exsanguinated with an Esmarch bandage and then tourniquet inflated 250 motors mercury. Attention was first directed over the first metatarsal phalangeal joint where a linear incision was made between the long extensor tendon to the great toe and the neurovascular structures. The incision was deepened down to the saphenous tissue careful to identify, avoid, and retract any neurovascular structures and cauterize any bleeding vessels. Blunt dissection was then continued down to level the periosteum and capsule. The periosteum and capsular ligamentous incised medial to the extensor hallucis longus tendon. Subperiosteal dissection was performed to reflect the soft tissues away from the first metatarsal phalangeal joint. First inspection of the joint showed significant osteophytic formation of the dorsal medial lateral aspects of the first metatarsal head as well as base of proximal phalanx. There is also full thickness cartilage loss both of the first metatarsal head and base of the proximal phalanx. A guidewire was placed in the central aspect of the first metatarsal head and advanced into medullary canal parallel to the long axis. A saw was then used to remove all the excessive osteophytes of the first metatarsal head. The concave reamer was used to remove the articular cartilage and subchondral bone. The guidewire was removed and used to fenestrate first metatarsal head. The wire was then inserted the base of the proximal phalanx of the great toe at the central aspect of the articular surface and advanced into the medullary canal parallel to the long access of the phalanx. The convex reamer was then used to remove the articular cartilage and subchondral bone to bleeding medullary bone. The guidewires were removed and then used to fenestrate same surface. The wound is then thoroughly irrigated with antibiotic saline. Proteoss DBM was placed between the arthrodesis segments. An Arthrex MaxForce place and then positioned over the arthrodesis site with the guideline of the plate over the joint surface. Temporary fixation was performed. And then 2 locking screws placed in the plate into the distal phalanx. The drill hole for the compression device was then made in the proximal aspect of the plate. The compression device was inserted and utilized to provide further compression across the arthrodesis site. Once that was achieved was temporarily fixated again and then a nonlocking screw was placed in the compression slot and the proximal aspect of the plate which provided further compression over the arthrodesis site. A locking screws in place the most proximal hole and another the most distal hole. Then a nonlocking screw was placed in the proximal aspect of the plate. Final fluoroscopic imaging showed corrected alignment of the great toe joint with proper placement of all hardware. There was good c ompression across the arthrodesis site without any space visible on fluoroscopy. The wound is thoroughly irrigated with normal saline with antibiotic. The capsules closed with 2-0 Vicryl. Subcu closure done for Monocryl. Skin closure done with 3-0 Stratafix in a running subcuticular manner. Then attention was directed over the dorsal midfoot. Fluoroscopy was used to locate the bases of the second and third metatarsals. The incision was made between the bases of the tarsometatarsal joints. It was deepened down to the saphenous tissue careful to identify, avoid, and retract any neurovascular structures and cauterize any bleeding vessels. Dissection was carried through the saphenous layer of the deep fascia. The deep fascia was incised off the osseous structures near the bases of the second third metatarsals. Subperiosteal dissection was performed to expose the joints. There was large osteophyte in the area of the second and third tarsometatarsal joints, which was removed with an osteotome. This expose the joint surfaces were they were able to be distracted. Joint prepped instrument were then used to remove the articular cartilage and subchondral bone. All surfaces were then aggressively fenestrated with a guidewire. The wound is irrigated thoroughly with normal saline. Additional Proteoss DBM was placed between the arthrodesis segments. A Novastep 2 hole compression plate was then positioned under fluoroscopy across the arthrodesis site. It didn't require contouring so that it would lie flat against the bony surfaces. The proximal hole was temporarily fixated the distal locking screw was placed through the plate into the base of the second metatarsal. Then with the joint reduced the combination locking compression screw was then inserted in the proximal hole the plate into the intermediate cuneiform. Once the screw engaged the plate allowed for compression and locked in place. No gapping was noted at the arthrodesis site. Then attention was directed to the third tarsometatarsal joint which had reduced significantly with the fixation of the second tarsometatarsal joint at that point was decided to utilize compression staple, therefore drill holes were made utilizing the appropriate guide through the third metatarsal as well as the lateral cuneiform. The staple was then inserted with the legs parallel so that once it was inserted the legs could go back to their original shape and compress the arthrodesis site. The legs were inserted into the drill holes and then the staple was impacted depth and then the optical dispenser was released and then the staple was impacted further to lie flush with the bone. Fluoroscopic imaging confirmed the proper placement of the staple. Visually there was no gapping at the arthrodesis site. The wound is irrigated thoroughly with antibiotic saline. Deep closure was done with 2-0 Vicryl, subcu closure done with 4-0 Monocryl, and skin closure done with 3-0 Stratafix in a running subcuticular manner. Dermal glue and Steri-Strips are placed over both incisions. An Arthrex jumpstart dressing placed over the incision and then cover the bulky dry dressing. The tourniquet was released and capillary refill return to all digits on the right foot. Then the patient's placed a well molded, well-padded plaster posterior mold/sugar tong splint. Ankle was held in neutral position until the splint was dried. Anesthesia was then reversed and the patient taken recovery with vital signs stable.
--- NOTE | 2021-03-12 17:50 | P.ANPRN ---
Procedure Note - Anesthesia - Nerve Block Performed Right Adductor Canal Time Out Performed: Yes (10:36) Date of Procedure: 03/12/21 Procedure Start Time: :36 Procedure Stop Time: 10:48 Location of Patient: PreOp Indication: Acute Post-Operative Pain, Requested by Surgeon (Dr Grady) Sedation Type: Sedate with meaningful contact maintained Preparation: Sterile Prep Position: Supine Catheter: None Needle Types: Pajunk Needle Gauge: 21 Ultrasound used to visualize needle placement: Yes Ultrasound used to observe medication spread: Yes Injectate: 0.5% Ropivacaine (see comment for volume) (15cc + 5cc PF Normal saline) Blood Aspirated: No Pain Paresthesia on Injection Noted: No Resistance on Injection: Normal Image Stored and Saved: Yes Events: Uneventful and Well Tolerated
--- NOTE | 2021-03-12 17:52 | P.ANPRN ---
Procedure Note - Anesthesia - Nerve Block Performed Right Popliteal Time Out Performed: Yes Date of Procedure: 03/12/21 Procedure Start Time: 10:49 Procedure Stop Time: 11:01 Location of Patient: PreOp Indication: Acute Post-Operative Pain, Requested by Surgeon (Dr Grady) Sedation Type: Sedate with meaningful contact maintained Preparation: Sterile Prep Position: Left Lateral Catheter: None Needle Types: Pajunk Needle Gauge: 21 Ultrasound used to visualize needle placement: Yes Ultrasound used to observe medication spread: Yes Injectate: 0.5% Ropivacaine (see comment for volume) (15cc + 5cc PF Normal saline) Blood Aspirated: No Pain Paresthesia on Injection Noted: No Resistance on Injection: Normal Image Stored and Saved: Yes Events: Uneventful and Well Tolerated
== END | disposition home or self-care (01) ==
LOC: OR 09:59
PROVIDERS: ATTEND Podiatrist
DX: M20.21 Hallux rigidus, right foot (principal); M19.071 Primary osteoarthritis, right ankle and foot; I10 Essential (primary) hypertension; E78.5 Hyperlipidemia, unspecified; E03.9 Hypothyroidism, unspecified; Z97.3 Presence of spectacles and contact lenses; Z96.653 Presence of artificial knee joint, bilateral; Z90.710 Acquired absence of both cervix and uterus; Z98.84 Bariatric surgery status; Z96.612 Presence of left artificial shoulder joint; Z98.42 Cataract extraction status, left eye; Z98.41 Cataract extraction status, right eye; Z90.49 Acquired absence of other specified parts of digestive tract; Z98.890 Other specified postprocedural states; Z83.3 Family history of diabetes mellitus; Z82.49 Family history of ischemic heart disease and other diseases of the circulatory system; Z87.891 Personal history of nicotine dependence; Z79.890 Hormone replacement therapy; Z79.891 Long term (current) use of opiate analgesic; Z79.899 Other long term (current) drug therapy; Z91.040 Latex allergy status; Z91.048 Other nonmedicinal substance allergy status
CPT/HCPCS: 64447; 64445; 76942; 28750; 28730; C1713; J2250; J0690; J2405; J2001; J3010; J2795; J0330; J2704

== ENCOUNTER → 2021-04-30 | Outpatient (CLI) | payer MEDICARE, OTHER ==
--- NOTE | 2021-05-01 06:42 | MR ---
MRI CERVICAL SPINE: CLINICAL HISTORY: Headaches and Neck pain radiating down both arms for several years. TECHNIQUE: Multiplanar, multisequence imaging of the cervical spine is performed without IV contrast. COMPARISON: Outside cervical spine x-ray March 03, 2021. FINDINGS: Sagittal images of the cervical spine show the craniocervical junction to appear within nor mal limits. The cervical and upper thoracic spinal cord is normal in caliber and signal. There is lo ss of normal cervical curvature on sagittal images with slight grade 1 retrolisthesis C2 on C3 redemo nstrated and peak of cervical curvature reversal centered at C5-C6 level redemonstrated. The vertebra l body height are normal. Mild to moderate disc space narrowing C5-C6 and C6-C7 levels redemonstrated . The bone marrow signal intensity is within normal limits. Axial images are degraded by patient motion despite several warnings and attempted repeated sequences making evaluation suboptimal. Axial images at C2-C3 level are likely within normal limits. Axial images at C3-C4 level shows some uncovertebral facet degenerative changes causing mild right-si ded neural foraminal narrowing. Axial images at C4-C5 level shows some uncovertebral facet degenerative changes without significant n eural foraminal narrowing. Axial images at C5-C6 level at peak of reversed cervical curvature show additional central disc protr usion effacing anterior thecal sac nearly up to ventral surface of spinal cord with mild left-sided n eural foraminal narrowing felt present. Axial images at C6-C7 level shows left paracentral spur disc complex effacing the anterolateral theca l sac, patent bilateral neural foramina seen best sagittal image 6. Axial images at C7-T1 level are felt within normal limits. IMPRESSION: Suboptimal study. Reversal of normal cervical curvature centered at C5-C6 and C6-C7 level s with multilevel degenerative changes greatest at these levels as detailed above.
== END | disposition home or self-care (01) ==
LOC: RADMRIMAIN 16:36
PROVIDERS: ATTEND Orthopaedic Surgery
DX: M50.122 Cervical disc disorder at C5-C6 level with radiculopathy (principal); M47.22 Other spondylosis with radiculopathy, cervical region; M99.71 Connective tissue and disc stenosis of intervertebral foramina of cervical region; M43.12 Spondylolisthesis, cervical region
CPT/HCPCS: 72141

== ENCOUNTER → 2021-07-06 | Outpatient (CLI) | payer MEDICARE, OTHER ==
--- NOTE | 2021-07-06 18:00 | ECHOF ---
Referral Reason:R06.02 SOB MEASUREMENTS -------- HEIGHT: 162.6 cm WEIGHT: 86.2 kg BP: RVIDd: 2.7 cm (< 3.3) IVSd: 1.2 cm (0.6 - 1.1) LVIDd: 3.8 cm (3.9 - 5.3) LVPWd: 1.0 cm (0.6 - 1.1) IVSs: 1.5 cm LVIDs: 2.0 cm LVPWs: 1.5 cm LAESV Index (A-L): 23.75 ml/m Ao Diam: 3.8 cm (2.0 - 3.7) AV Cusp: 2.2 cm (1.5 - 2.6) LA Diam: 3.0 cm (2.7 - 3.8) MV E Corbin: 0.56 m/s MV DecT: 219 ms MV A Corbin: 0.63 m/s MV E/A Ratio: 0.89 RAP: 5.00 mmHg RVSP: 27.01 mmHg FINDINGS -------- Sinus rhythm. This was a technically adequate study. The left ventricular size is normal. There is borderline concentric left ventricular hypertrophy. Overall left ventricular systolic function is normal with, an EF between 55 - 60 %. The diastolic filling pattern is normal for the age of the patient 9.65. The right ventricle is normal in size. Normal LA size by volume 22+/-6 ml/m2. The right atrial size is normal. Interatrial and interventricular septum intact. The aortic valve is trileaflet and appears structurally normal. There is no evidence of aortic regu rgitation. There is no evidence of aortic stenosis. No mitral regurgitation. Trace tricuspid regurgitation present. There is no evidence of pulmonary hypertension. The right ventricular systolic pressure, as measured by Doppler, is 27.01mmHg. There is no pulmonic regurgitation present. The aortic root is mildy dilated. The aortic root is dilated measuring {3.8 cm}. Normal inferior vena cava with normal inspiratory collapse consistent with estimated right atrial pre ssure of 5 mmHg. There is no pericardial effusion. CONCLUSIONS -------- 1. The left ventricular size is normal. 2. There is borderline concentric left ventricular hypertrophy. 3. Overall left ventricular systolic function is normal with, an EF between 55 - 60 %. 4. The diastolic filling pattern is normal for the age of the patient 9.65 5. Trace tricuspid regurgitation present. 6. The aortic root is mildy dilated. 7. The aortic root is dilated measuring {3.8 cm}. FILM DEVELOPING MACHINE OPERATOR: Jennifer Son RDCS
== END | disposition home or self-care (01) ==
LOC: RADECHMAIN 13:50
PROVIDERS: ATTEND Family Medicine
DX: I51.7 Cardiomegaly (principal)
CPT/HCPCS: 93306

== ENCOUNTER 2021-11-04 19:45 | Emergency (ER) | payer MEDICARE, OTHER ==
[2021-11-04 20:16] VITALS: RESP 16
--- NOTE | 2021-11-04 20:24 | ED ---
General Adult HPI - General Chief complaint: Chest Pain Stated complaint: Chest Pain, Abd Pain Time Seen by Provider: 11/04/21 19:55 Source: patient, family, RN notes reviewed, old records reviewed Mode of arrival: wheelchair Limitations: no limitations - History of Present Illness Initial comments: 66-year-old female that presents to the emergency room with complaints of epigastric chest pain after eating pizza tonight. States that the pain has now resolved. He denies any chest pain or difficulty in breathing at this time. Daughter states that she does have a PEG tube and they have been advancing her diet slowly. This was placed after hospitalization at [facility] on August 17 for abdominal pain and ended up in sepsis. At that time she was found to have a thoracic aneurysm and was transferred [facility]. Daughter states that she went into cardiac arrest and CPR was performed for 12 minutes. On August 26 she had a chest tube that was placed on the left side. Patient is known to have a abdominal aortic aneurysm which they are treating medically. Daughter states that she had a thoracic aneurysm and a stent was placed at [facility]. She has a history of asthma, diabetes, GERD, hypertension. Surgical history of appendectomy and cholecystectomy. -: hour(s) Location: chest (Epigastric) Radiation: non-radiation Severity scale (1-10): 0 Consistency: now resolved Associated Symptoms: denies other symptoms - Related Data Home Medications Medication Instructions Recorded Confirmed Montelukast [Singulair] 10 mg PO DAILY 06/13/14 03/10/21 Zolpidem [Ambien] 10 mg PO HS PRN 06/13/14 03/10/21 amLODIPine BESYLATE [Norvasc] 5 mg PO QAM 06/13/14 03/10/21 lisinopriL [Prinivil] 20 mg PO QAM 06/13/14 03/10/21 Gabapentin [Neurontin] 400 mg PO TID 07/20/18 03/10/21 Omeprazole [PriLOSEC] 40 mg PO DAILY 10/11/19 03/10/21 Sertraline [Zoloft] 150 mg PO DAILY 10/11/19 03/10/21 Albuterol Inhaler [Ventolin Hfa 2 puff INHALATION Q6H PRN 03/10/21 03/10/21 Inhaler] Cyclobenzaprine [Flexeril] 10 mg PO TID 03/10/21 03/10/21 Ibuprofen [Motrin] 800 mg PO Q6HR PRN 03/10/21 03/10/21 Meclizine [Antivert] 25 mg PO TID 03/10/21 03/10/21 oxyCODONE HCL/ACETAMINOPHEN 1 tab PO Q8H PRN 03/10/21 03/10/21 [oxyCODONE HCL/ACETAMINOPHEN 7.5-325] Previous Rx's Medication Instructions Recorded Levothyroxine Sodium [Euthyrox] 112 mcg PO DAILY #30 tablet 10/12/19 oxyCODONE-APAP 10-325MG [Percocet 1 tab PO Q4HR PRN 3 Days #18 tab 03/12/21 10-325 mg] Sulfamethox-Tmp 800-160Mg [Bactrim 1 each PO Q12HR 3 Days #6 tab 11/04/21 Ds] Allergies Allergy/AdvReac Type Severity Reaction Status Date / Time latex Allergy Unknown Itching, Verified 11/04/21 19:50 Watery eyes, Swelling, RASH aluminum Allergy Rash/Hives Verified 11/04/21 19:50 cortisone Allergy extreme Verified 11/04/21 19:50 swelling Review of Systems ROS Statement: Those systems with pertinent positive or pertinent negative responses have been documented in the HPI. ROS Other: All systems not noted in ROS Statement are negative. Past Medical History Past Medical History: Asthma, Diabetes Mellitus, GERD/Reflux, Hyperlipidemia, Hy pertension, Osteoarthritis (OA), Pneumonia, Sleep Apnea/CPAP/BIPAP, Thyroid Disorder Additional Past Medical History / Comment(s): Borderline Diabetes-pt. unaware of this hx., Hypothyroidism, seasonal allergies, pain in neck, shoulders and knees. Aortic aneurysm. HX OF ULCERATIVE COLITIS, anemia, no CPAP use currently. vertigo History of Any Multi-Drug Resistant Organisms: None Reported Past Surgical History: Appendectomy, Bariatric Surgery, Breast Surgery, Section, Cholecystectomy, Hysterectomy, Joint Replacement Additional Past Surgical History / Comment(s): BREAST REDUCTION, kacey knee replacements, left x2, LAP BAND, lap band removal, revision to sleeve gastrectomy, kacey. shoulder surgery, 5" zamzam below left knee, Colonoscopy, Cataract surgery bilaterally, lt thumb joint replacement, EGD, eye lid and eye brow lift. Hiatal hernia repair, bilateral carpal tunnel surgeries. Past Anesthesia/Blood Transfusion Reactions: Family History of Problems w/ Anesthesia, Motion Sickness, Postoperative Nausea & Vomiting (PONV) Additional Past Anesthesia/Blood Transfusion Reaction / Comment(s): SISTER AND CHILDREN PONV. Past Psychological History: Anxiety, Depression Smoking Status: Former smoker Past Alcohol Use History: None Reported Past Drug Use History: None Reported - Past Family History Sister(s) Family Medical History: Cancer Additional Family Medical History / Comment(s): BREAST CANCER ,#2 SISTER RECTAL CANCER. Father Family Medical History: Pulmonary Embolus Additional Family Medical History / Comment(s): Aneurysm. Brother(s) Family Medical History: Cancer Additional Family Medical History / Comment(s): One brother had lung cancer. BROTHER #2 ORAL CANCER. Mother Family Medical History: Cancer Additional Family Medical History / Comment(s): UTERINE CANCER. ALSO GRANDSON - LEUKEMIA X2. General Exam Limitations: no limitations General appearance: alert, in no apparent distress Head exam: Present: atraumatic Eye exam: Absent: scleral icterus, conjunctival injection, periorbital swelling ENT exam: Present: mucous membranes dry Expanded Throat exam: negative: tonsillar erythema, tonsillomegaly, tonsillar exudate, R peritonsillar mass, L peritonsillar mass Neck exam: Absent: tenderness, meningismus Respiratory exam: Present: wheezes, rales. Absent: normal lung sounds bilaterally, respiratory distress, accessory muscle use Cardiovascular Exam: Present: regular rate GI/Abdominal exam: Present: soft, tenderness (Generalized), other (peg tube). Absent: distended, guarding, rebound, rigid Extremities exam: Present: normal capillary refill. Absent: pedal edema Back exam: Absent: tenderness, CVA tenderness (R), CVA tenderness (L), rash not ed Neurological exam: Present: alert, oriented X3 Psychiatric exam: Present: normal affect, normal mood Skin exam: Present: warm, dry, normal color. Absent: cyanosis, diaphoretic, petechiae, pallor Course Vital Signs 11/04/21 11/04/21 11/04/21 19:46 20:01 20:13 Temperature 98.8 F Pulse Rate 92 79 Pulse Rate [ 87 Clinical Research Nurse Coordinator ] Respiratory 18 16 Rate Blood Pressure 116/68 131/64 O2 Sat by Pulse 96 93 L Oximetry 11/04/21 11/04/21 21:08 22:46 Temperature 98.5 F Pulse Rate 79 77 Pulse Rate [ Clinical Research Nurse Coordinator ] Respiratory 16 16 Rate Blood Pressure 127/88 133/66 O2 Sat by Pulse 93 L 94 L Oximetry EKG Findings - EKG Results: EKG: sinus rhythm (Ventricular rate 81, [place] interval 0.155, QRS 0.88, QTc 0.372) Medical Decision Making - Medical Decision Making Patient presents with epigastric abdominal pain after eating a pizza. Upon arrival to the emergency room patient's symptoms have resolved. Her daughter states she gave her protonix, omeprazole and Tums prior to arrival. Per the daughter patient has had significant health problems over the past couple of months. She was seen at [facility] on August 17 and transferred to [facility] after finding a thoracic aneurysm that was leaking. Daughter states that she became septic from urinary tract infection. She was intubated for a month and had a collapsed left lung with chest tube. She states she was discharged after stenting of the thoracic aneurysm on October 16 with blood pressure management. She does follow up with Dr. Jiménez who has been giving her Protonix for her GERD. She had an recent echo on June 2021. Patient's symptoms have resolved and she wants to be discharged home. Her symptoms are likely related to her GERD which was exacerbated after eating pizza. She was directed to slowly advance her diet since she is still receiving PEG tube feedings. Her eating pizza tonight was likely the offending agent. She did take Protonix Pepcid and Tums prior to arrival. She states her symptoms were resolved when she arrived in the emergency room. Hemoglobin and hematocrit are stable. Patient's d-dimer is 10.01. Due to patient's recent health care problems imaging was performed. CT angiogram chest shows an age indeterminate partially imaged abdominal aortic dissection measuring up to 3.9 cm. This is new compared to CT is dated 07/14/2020. Daughter at bedside states that she does have abdominal aortic aneurysm that is being medically managed by Dr Chambers. There is no acute PE cardiopulmonary abnormality. There is a thoracic aortic aneurysm status post stenting. There is indeterminate 6 mm right lower lobe nodule not noted on prior study. Patient and daughter were notified of these results. There is evidence of UTI and patient was given a gram of Rocephin. She will be discharged home to follow up with her primary care doctor return to the emergency room with any new or concerning symptoms. She was directed to discuss the right lung nodule with Dr. Jiménez. I did discuss this case with Dr. Degroot who is agreeable to patient being discharged home as her abdominal aortic aneurysms are being managed with blood pressure control, vital signs are stable. Hemoglobin and hematocrit are stable. Patient and daughter are agreeable to this plan of care. - Lab Data Result diagrams: 11/04/21 20:21 11/04/21 20:18 Lab Results 11/04/21 11/04/21 11/04/21 Range/Units 20:18 20:21 20:21 WBC 11.2 H (3.8-10.6) k/uL RBC 4.33 (3.80-5.40) m/uL Hgb 11.5 (11.4-16.0) gm/dL Hct 37.2 (34.0-46.0) % MCV 86.0 (80.0-100.0) fL MCH 26.5 (25.0-35.0) pg MCHC 30.9 L (31.0-37.0) g/dL RDW 17.7 H (11.5-15.5) % Plt Count 364 (150-450) k/uL MPV 7.2 Neutrophils % 71 % Lymphocytes % 19 % Monocytes % 8 % Eosinophils % 1 % Basophils % 0 % Neutrophils # 8.0 H (1.3-7.7) k/uL Lymphocytes # 2.1 (1.0-4.8) k/uL Monocytes # 0.9 (0-1.0) k/uL Eosinophils # 0.1 (0-0.7) k/uL Basophils # 0.0 (0-0.2) k/uL Hypochromasia Slight Anisocytosis Slight PT 10.2 (9.0-12.0) sec INR 0.9 (<1.2) APTT 24.2 (22.0-30.0) sec D-Dimer 10.01 H (<0.60) mg/L FEU Sodium 132 L (137-145) mmol/L Potassium 4.2 (3.5-5.1) mmol/L Chloride 97 L (98-107) mmol/L Carbon Dioxide 24 (22-30) mmol/L Anion Gap 11 mmol/L BUN 17 (7-17) mg/dL Creatinine 0.43 L (0.52-1.04) mg/dL Est GFR (CKD-EPI)AfAm >90 (>60 ml/min/1.73 sqM) Est GFR (CKD-EPI)NonAf >90 (>60 ml/min/1.73 sqM) Glucose 108 H (74-99) mg/dL Calcium 9.1 (8.4-10.2) mg/dL Magnesium 1.7 (1.6-2.3) mg/dL Total Bilirubin 0.4 (0.2-1.3) mg/dL AST 24 (14-36) U/L ALT 26 (4-34) U/L Alkaline Phosphatase 141 H (38-126) U/L Troponin I (0.000-0.034) ng/mL Total Protein 6.3 (6.3-8.2) g/dL Albumin 3.4 L (3.5-5.0) g/dL Amylase 63 (30-110) U/L Lipase 236 (23-300) U/L Urine Color Urine Appearance (Clear) Urine pH (5.0-8.0) Ur Specific [place] (1.001-1.035) Urine Protein (Negative) Urine Glucose (UA) (Negative) Urine Ketones (Negative) Urine Blood (Negative) Urine Nitrite (Negative) Urine Bilirubin (Negative) Urine Urobilinogen (<2.0) mg/dL Ur Leukocyte Esterase (Negative) Urine RBC (0-5) /hpf Urine WBC (0-5) /hpf Ur Squamous Epith Cells (0-4) /hpf Ur Renal Epithelial Cell (0) /hpf Urine Mucus (None) /hpf 11/04/21 11/04/21 Range/Units 20:21 21:08 WBC (3.8-10.6) k/uL RBC (3.80-5.40) m/uL Hgb (11.4-16.0) gm/dL Hct (34.0-46.0) % MCV (80.0-100.0) fL MCH (25.0-35.0) pg MCHC (31.0-37.0) g/dL RDW (11.5-15.5) % Plt Count (150-450) k/uL MPV Neutrophils % % Lymphocytes % % Monocytes % % Eosinophils % % Basophils % % Neutrophils # (1.3-7.7) k/uL Lymphocytes # (1.0-4.8) k/uL Monocytes # (0-1.0) k/uL Eosinophils # (0-0.7) k/uL Basophils # (0-0.2) k/uL Hypochromasia Anisocytosis PT (9.0-12.0) sec INR (<1.2) APTT (22.0-30.0) sec D-Dimer (<0.60) mg/L FEU Sodium (137-145) mmol/L Potassium (3.5-5.1) mmol/L Chloride (98-107) mmol/L Carbon Dioxide (22-30) mmol/L Anion Gap mmol/L BUN (7-17) mg/dL Creatinine (0.52-1.04) mg/dL Est GFR (CKD-EPI)AfAm (>60 ml/min/1.73 sqM) Est GFR (CKD-EPI)NonAf (>60 ml/min/1.73 sqM) Glucose (74-99) mg/dL Calcium (8.4-10.2) mg/dL Magnesium (1.6-2.3) mg/dL Total Bilirubin (0.2-1.3) mg/dL AST (14-36) U/L ALT (4-34) U/L Alkaline Phosphatase (38-126) U/L Troponin I <0.012 (0.000-0.034) ng/mL Total Protein (6.3-8.2) g/dL Albumin (3.5-5.0) g/dL Amylase (30-110) U/L Lipase (23-300) U/L Urine Color Yellow Urine Appearance Cloudy H (Clear) Urine pH 5.5 (5.0-8.0) Ur Specific [place] 1.024 (1.001-1.035) Urine Protein Trace H (Negative) Urine Glucose (UA) Negative (Negative) Urine Ketones Negative (Negative) Urine Blood Negative (Negative) Urine Nitrite Negative (Negative) Urine Bilirubin Negative (Negative) Urine Urobilinogen 2.0 (<2.0) mg/dL Ur Leukocyte Esterase Large H (Negative) Urine RBC 5 (0-5) /hpf Urine WBC 53 H (0-5) /hpf Ur Squamous Epith Cells 7 H (0-4) /hpf Ur Renal Epithelial Cell 2 (0) /hpf Urine Mucus Many H (None) /hpf Disposition Clinical Impression: UTI (urinary tract infection), Gastroesophageal reflux disease, Lung nodule, Abdominal aortic aneurysm Disposition: HOME SELF-CARE Condition: Good Instructions (If sedation given, give patient instructions): GERD (Gastroesophageal Reflux Disease) in Children (ED), Urinary Tract Infection in Women (ED), Epigastric Pain (ED) Additional Instructions: Continue taking your previously prescribed medications. Take the Bactrim as prescribed for your urinary tract infection. Follow-up with your primary care doctor tomorrow. Discuss with him the right lower lung nodule found on CT scan today. Return to the emergency room with any new or concerning symptoms including chest pain, difficulty breathing or abdominal pain. Prescriptions: Sulfamethox-Tmp 800-160Mg [Bactrim Ds] 1 each PO Q12HR 3 Days #6 tab Is patient prescribed a controlled substance at d/c from ED?: No Referrals: Fredy Jiménez MD [Primary Care Provider] - 1-2 days Time of Disposition: 22:17
[2021-11-04 20:26] LABS: Anisocytosis Slight; Basophils % (A) 0 %; Eosinophils # (A) 0.1 k/uL (0-0.7); Eosinophils % (A) 1 %; HCT 37.2 % (34.0-46.0); HGB 11.5 gm/dL (11.4-16.0); Hypochromasia Slight; Lymphocytes # (A) 2.1 k/uL (1.0-4.8); Lymphocytes % (A) 19 %; MCH 26.5 pg (25.0-35.0); MCHC 30.9 g/dL (31.0-37.0); Mean Platelet Volume 7.2; Monocytes # (A) 0.9 k/uL (0-1.0); Monocytes % (A) 8 %; Neutrophils % (A) 71 %; Platelet Count 364 k/uL (150-450); RBC 4.33 m/uL (3.80-5.40); RDW 17.7 % (11.5-15.5); WBC 11.2 k/uL (3.8-10.6)
[2021-11-04 20:36] LABS: ALT 26 U/L (4-34); AST 24 U/L (14-36); African American GFR (CKD) >90 (>60 ml/min/1.73 sqM); Albumin 3.4 g/dL (3.5-5.0); Alkaline Phosphatase 141 U/L (38-126); Amylase 63 U/L (30-110); Anion Gap 11 mmol/L; Blood Urea Nitrogen 17 mg/dL (7-17); Calcium 9.1 mg/dL (8.4-10.2); Carbon Dioxide 24 mmol/L (22-30); Chloride 97 mmol/L (98-107); Glucose 108 mg/dL (74-99); Lipase 236 U/L (23-300); Magnesium 1.7 mg/dL (1.6-2.3); Non-African American GFR(CKD) >90 (>60 ml/min/1.73 sqM); Potassium 4.2 mmol/L (3.5-5.1); Sodium 132 mmol/L (137-145); Total Bilirubin 0.4 mg/dL (0.2-1.3); Total Protein 6.3 g/dL (6.3-8.2)
[2021-11-04 20:55] LABS: INR 0.9 (<1.2); Partial Thromboplastin Time 24.2 sec (22.0-30.0); Prothrombin Time 10.2 sec (9.0-12.0)
[2021-11-04 21:14] LABS: Appearance,Urine Cloudy (Clear); Bilirubin,Urine Negative (Negative); Blood,Urine Negative (Negative); Color,Urine Yellow; Glucose,Urine (UA) Negative (Negative); Ketones,Urine Negative (Negative); Leukocyte Esterase,Urine Large (Negative); Mucus,Urine Many /hpf; Nitrite,Urine Negative (Negative); PH, Urine 5.5 (5.0-8.0); Protein,Urine Trace (Negative); RBC,Urine 5 /hpf (0-5); Renal Epithelial Cells,Urine 2 /hpf (0); Specific Gravity,Urine 1.024 (1.001-1.035); Squamous Epithelial Cell,Urine 7 /hpf (0-4); WBC,Urine 53 /hpf (0-5)
[2021-11-04] MEDS ORDERED: cefTRIAXone IN SWFI 1,000 MG/10 ML SYRINGE IVP STA (21:46)
--- NOTE | 2021-11-04 21:46 | CT ---
EXAMINATION TYPE: CT angio chest DATE OF EXAM: 11/04/2021 9:27 PM COMPARISON: 07/14/2020 and prior HISTORY: elevated d dimer CT DLP: 368 mGycm Automated exposure control for dose reduction was used. CONTRAST: CTA scan of the thorax is performed with IV Contrast, patient injected with 100 mL of Isovue 370, pul monary embolism protocol. MIP images are created and reviewed. FINDINGS: LUNGS: There is decreased left lung volume may relate to prior post surgical changes. There is mild l eft lower lobe atelectasis. There is no significant infiltrate. There is a 6 mm lower lobe nodule. There is no pleural effusion or pneumothorax seen. The tracheobronchial tree is patent. MEDIASTINUM: There is satisfactory enhancement of the pulmonary artery and its branches, there is no CT evidence for pulmonary embolism. There are no greater than 1 cm hilar or mediastinal lymph nodes. No pericardial effusion is seen. There is aneurysmal dilatation of the thoracic aorta with the meghan cending aorta measuring up to 3.9 cm. There is prior stenting of the descending aorta. Partially imaged abdominal aortic dissection seen. OTHER: No additional significant abnormality is seen. IMPRESSION: Age-indeterminate, partially imaged abdominal aortic dissection. New compared to CT from 07/14/2020. R ecommend correlation with medical history. OTHERWISE NO ACUTE PE OR CARDIOPULMONARY ABNORMALITY. THORACIC AORTIC ANEURYSM STATUS POST STENTING. INDETERMINATE 6 MM RIGHT LOWER LOBE NODULE, NEW COMPARED TO PRIOR STUDY.
--- NOTE | 2021-11-04 22:44 | XR ---
EXAMINATION TYPE: XR abdomen acute w cxr DATE OF EXAM: 11/04/2021 COMPARISON: NONE HISTORY: Short of breath TECHNIQUE: 4 views FINDINGS: There is no heart failure nor confluent pneumonic infiltrate. There is an endograft in the descending thoracic aorta. There is contrast material in both kidneys from recent CT scan. No sign of intestinal obstruction or pneumoperitoneum. There is contrast in the urinary bladder. No evidence of abdominal mass. There is some tubing over the left side of the abdomen. There is slight blunting lef t costophrenic angle. IMPRESSION: There is some minimal pleural reaction lateral left lung base similar to old exam. Nonacu te abdomen. No acute lung disease. Normal sized heart. Atheromatous aorta. Tortuosity of the aorta is increased compared to old exam.
[2021-11-04 22:48] VITALS: BP 133/66; PULSE 77; TEMP 98.5
== END 2021-11-04 22:48 | disposition home or self-care (01) ==
LOC: EC 19:45
DX: K21.9 Gastro-esophageal reflux disease without esophagitis (principal); N39.0 Urinary tract infection, site not specified; R91.1 Solitary pulmonary nodule; I71.4 Abdominal aortic aneurysm, without rupture; Z87.891 Personal history of nicotine dependence; J45.909 Unspecified asthma, uncomplicated; E11.9 Type 2 diabetes mellitus without complications; E78.5 Hyperlipidemia, unspecified; I10 Essential (primary) hypertension; E07.9 Disorder of thyroid, unspecified; Z91.040 Latex allergy status; Z88.8 Allergy status to other drugs, medicaments and biological substances; Z91.09 Other allergy status, other than to drugs and biological substances; Z79.899 Other long term (current) drug therapy
CPT/HCPCS: 36415; 93005; 85379; 80053; 82150; 83690; 83735; 84484; 85025; 85610; 85730; 81001; 87086; 74022; 71275; 99285; 96374; J0696; Q9967